=== PATIENT | male | born 1960 | race Caucasian/White ===

== ENCOUNTER 2020-03-28 00:42 | Outpatient (CLI) | payer BC, SELFPAY ==
[2020-03-28 18:35] LABS: SARS-CoV-2 RNA PCR Negative
== END 2020-03-28 00:43 | disposition home or self-care (01) ==
PROVIDERS: PCP Emergency Medicine; Visit Provider Specialist
DX: Z01.812 Encounter for preprocedural laboratory examination (principal); Z20.828 Contact with and (suspected) exposure to other viral communicable diseases
CPT/HCPCS: 87635; C9803; U0003

== ENCOUNTER 2020-03-31 05:18 | Day surgery (SDC) | payer BC, SELFPAY ==
[2020-03-28 15:33] VITALS: BMI 41.1
[2020-03-31] VITALS (23 sets, daily range): BP systolic 109–158; BP diastolic 68–90; PULSE 70–75; RESP 10–23; TEMP 36.9; O2SAT 92–100
[2020-03-31 10:40] LABS: Basophils Absolute Auto 0.1 K/mm3 (0.0-0.1); Basophils Percent Auto 0.8 % (0.2-1.2); Eosinophils Absolute Auto 0.2 K/mm3 (0-0.3); Eosinophils Percent Auto 3.8 % (0-4.4); Hematocrit 46.3 % (42.0-52.0); Hemoglobin 15.8 g/dL (14.0-18.0); Immature Granulocyte Absolute 0.02 K/mm3 (0.00-0.031); Immature Granulocyte Percent A 0.3 % (0-0.5); Lymphocytes Absolute Auto 2.02 K/mm3 (0.9-3.2); Lymphocytes Percent Auto 31.6 % (18.3-44.2); Mean Corpuscular HGB Conc 34.1 g/dl (32-36); Mean Corpuscular Hemoglobin 29.2 pg (26-34); Mean Corpuscular Volume 85.4 fl (80-100); Mean Platelet Volume 9.6 fl (7.4-10.4); Monocytes Absolute Auto 0.7 K/mm3 (0.1-0.6); Monocytes Percent Auto 10.8 % (2.6-8.5); Neutrophils Absolute Auto 3.4 K/mm3 (1.3-6.7); Neutrophils Percent Auto 52.7 % (45.5-73.1); Platelet Count Result 198 k/mm3 (150-375); Red Blood Count 5.42 M/mm3 (4.6-6.20); Red Cell Distribution Width 13.3 % (11.5-14.5); White Blood Count 6.4 K/mm3 (4.5-10.0)
[2020-03-31 10:49] LABS: INR 1.1; Prothrombin Time 14.3 Seconds (11.1-14.7)
[2020-03-31 10:51] LABS: Anion Gap 8 mmol/L (8-16); Blood Urea Nitrogen 11 mg/dL (9-20); Carbon Dioxide 26 mmol/L (22-30); Chloride 101 mmol/L (98-107); Estimated CRCL calculation 149 ml/min; Estimated Glomerular Filt Rate > 60; Glucose 166 mg/dL (75-110); Potassium 4.5 mmol/L (3.4-5.0); Sodium 135 mmol/L (137-145)
--- NOTE | 2020-03-31 11:14 | WPDMODSED ---
Moderate Sedation Note-Pt Data Patient Data Diagnosis: symptoms compatible with angina history of coronary disease previous PCI of the LAD abnormal nuclear stress test Present Complaint: this is a 59-year-old patient with a complex cardiac history. He has a history of coronary artery disease with previous stenting of the LAD in 2009. Prior to that the patient initially presented with symptomatic complete heart block and received a permanent pacemaker. He then developed significant aortic stenosis and received a mechanical aortic valve her purse prosthesis as well. He of course has been anticoagulated with warfarin. Warfarin has been withdrawn for several days prior to today's angiogram. INR this morning is 1.1. Procedure to be performed/Plan: Follow-up coronary angiography, possible PCI Allergies Allergy/AdvReac Type Severity Reaction Status Date / Time hydromorphone Allergy Unknown Verified 07/24/13 09:54 No Known Allergies Allergy Unverified 12/10/15 17:52 Home Medications Medication Instructions Recorded Confirmed Type amlodipine 5 mg tablet 5 mg PO DAILY 07/26/19 03/28/20 History aspirin 81 mg chewable tablet 81 mg PO DAILY 07/26/19 03/28/20 History tramadol 50 mg tablet 50 mg PO Q6H PRN 07/26/19 03/28/20 History glyburide 2.5 mg tablet See Rx Instructions .ROUTE 08/21/19 03/28/20 Rx .COMPLEX #90 tablet metformin 1,000 mg tablet See Rx Instructions .ROUTE 08/21/19 03/28/20 Rx .COMPLEX #180 tablet warfarin 4 mg tablet 4 mg PO DAILY #90 tablet 08/21/19 03/28/20 Rx metoprolol succinate 50 mg PO DAILY 03/28/20 03/28/20 History Current Medications: Active Medications Sodium Chloride (Normal Saline Iv) 500 mls @ 100 mls/hr IV CONT .Q5H KIERA Sedation/Anesthesia: No previous sedation/anesthesia problems (including family history). [facility] Social History Social History Smoking status: Smoker, status unknown Alcohol intake: never Mod Sed Physical Exam Physical Exam Pre Procedural Exam: Normal: Neck, Throat, Airway, Lungs ( breath sounds distant but clear), Heart Rate ( normal mechanical aortic valve sounds), Heart Rhythm, Neuro Exam and Extremities and Variation: Appearance ( obese white male BMI 41) and Heart Size ( PMI cannot be palpated because of his size) Hours since solid foods: 12 Hours since liquid intake: 12 Internal Medicine - PN: Obj Da Vital Signs Vital Signs: Vital Signs - 24 hr 03/31/20 10:48 Temperature 36.9 C Pulse Rate 72 Respiratory Rate 15 Blood Pressure 138/90 Pulse Oximetry 97 Meds/Results Medications: Active Medications Generic Name Dose Route Start Last Admin Trade Name Adarshq PRN Reason Stop Dose Admin Sodium Chloride 500 mls @ 100 mls/hr 03/31/20 06:05 Normal Saline Iv IV CONT .Q5H KIERA Labs CBC & Chem 7: 03/31/20 10:33 03/31/20 10:33 Labs: Laboratory Results - last 24 hr 03/31/20 03/31/20 03/31/20 10:33 10:33 10:33 WBC 6.4 RBC 5.42 Hgb 15.8 Hct 46.3 MCV 85.4 MCH 29.2 MCHC 34.1 RDW 13.3 Plt Count 198 MPV 9.6 Immature Gran % (Auto) 0.3 Neut % (Auto) 52.7 Lymph % (Auto) 31.6 [place] % (Auto) 10.8 H Eos % (Auto) 3.8 Baso % (Auto) 0.8 Lymph # (Auto) 2.02 [place] # (Auto) 0.7 H Eos # (Auto) 0.2 Baso # (Auto) 0.1 Abs Immat Gran (auto) 0.02 Absolute Neuts (auto) 3.4 Absolute Nucleated RBC 0.0 Nucleated RBC % 0.0 PT 14.3 INR 1.1 Sodium 135 L Potassium 4.5 Chloride 101 Carbon Dioxide 26 Anion Gap 8 BUN 11 Creatinine 0.60 L Estim Creat Clear Calc 149 Estimated GFR > 60 Glucose 166 H Calcium 9.0 ASA Classification/Sedation ASA Classification/Sedation ASA Class: III Emergent: No Risks: Risks, benefits and alternatives explained and patient/family accepted plan for sedation. Patient re-evaluated immediately prior to sedation.
--- NOTE | 2020-03-31 12:16 | ECG_ITS ---
Measurements Intervals [place] Rate: 69 P: 201 MO: 182 QRS: -30 QRSD: 199 T: 69 QT: 484 QTc: 522 Interpretive Statements ELECTRONIC ATRIAL PACEMAKER ELECTRONIC VENTRICULAR PACEMAKER BASELINE ARTIFACT- I, II, III NO FURTHER INTERPRETATION IS POSSIBLE ATYPICAL ECG Electronically Signed On 03-31-2020 16:08:02 CDT by Tacos Yoo D.O.
--- NOTE | 2020-03-31 12:19 | WPDCARDPROC ---
Cardiac Cath Procedure Note Date of procedure:: 03/31/20 Performing physician:: Lee Rodrigues MD Indication:: chest pain consistent with angina abnormal nuclear stress test history of LAD stent in 2009 Brief clinical history:: this is a 59-year-old man with a complicated cardiac history. He has chronic complete heart block with a chronically implanted dual-chamber pacemaker. In the remote past he also received a mechanical aortic valve to treat aortic stenosis. In 2009 he received an LAD stent to treat symptomatic ischemia. The patient is known to have a stenosis in a diagonal branch that is jailed by the stent but despite this had been asymptomatic until recently when now he is reporting typical exertional angina and has a nuclear stress test that is abnormal in the distribution of the LAD. Procedure Procedure performed:: Coronary angiography percutaneous revascularization with stenting of the LAD Sedation/Medication given:: fentanyl 50 mg Versed 2 mg case start time 11 41 a.m. case end time 12:11 p.m. sedation provided by Tati Dudley RN, trained observer Access site:: right femoral artery Estimated blood loss:: 15-20 cc Procedure note:: patient was brought to the cardiac catheterization lab in the postabsorptive state the right femoral triangle was prepared in the usual fashion. Anesthesia was administered with lidocaine infiltrated locally. Using the modified Seldinger technique right common femoral artery was accessed and a 5 [place] vascular sheath was placed. I then injected the right coronary artery using a 5 [place] JR4 catheter. I injected the left coronary artery using a 5 [place] FL4 catheter. Following this the cineangiograms were reviewed and PCI of the LAD was recommended and carried out as detailed below. Prior to PCI the 5 [place] sheath was changed over a guidewire for a 6 [place] sheath. Patient was systemically anticoagulated with a bolus and infusion of Angiomax. He received aspirin and 600 mg of clopidogrel orally prior to PCI. Following conclusion of the case the sheath was sutured into position was taken to the holding area for recovery a manual sheath removal. Procedure was uncomplicated there were no signs of any procedural complications. He left the label cutter with no evidence of a groin hematoma. Findings:: Hemodynamics: Central aortic pressure is 1 38/82. Because of the mechanical aortic valve the left ventricle was not entered the left main coronary artery is widely patent the LAD is a medium caliber vessel extending down to and just around the apex. There is visible stent material in the proximal 3rd of the LAD bridging over the major diagonal branch. This stent area is widely patent with no loss of lumen. There is however 95-99% tubular stenosis of about 15 mm in length the distal to the stent material representing progression of disease in the LAD. The diagonal branch as detailed above also has a 90% ostial lesion which is jailed by the original stent. Angiographically this appears to be unchanged from previous angiograms in 2018. Circumflex is a moderate caliber artery giving rise to the marginal branches the circumflex system is angiographically unremarkable right coronary artery is a large caliber vessel which is dominant to the posterior circulation the right coronary artery is also angiographically unremarkable. The left coronary artery was engaged using a 6 [place] CLS 3.5 guiding catheter. The lesion was crossed using a 0.014 ferryboat pilot 150 guidewire. The lesion was pre-dilated using a 2.5 x 20 mm emerge PTCA balloon. The target lesion was then stented using a 2.75 by 26 mm Orsiro drug-eluting stent inflated to 10 atmospheres. post stent the LAD was widely patent the target lesion was obliterated there is -10% to -20% stenosis with some step-down at the distal margin of the stent. There is no evidence of perforation distal embolization or dissection of the vessel. Concl
--- NOTE | 2020-03-31 15:06 | SUR.PHASEII ---
1500-Sheath pulled by Sultana Capellan RN. Firm pressure remains in place. Groin soft and non-tender, no evidence of bleeding or hematoma noted. Will continue to monitor.
--- NOTE | 2020-03-31 15:31 | SUR.PHASEII ---
1528-Firm pressure complete. Groin soft and non-tender, no evidence of bleeding or hematoma noted. Moderate right pedal pulse noted. Will continue to monitor.
--- NOTE | 2020-03-31 17:28 | SUR.PHASEII ---
see PCS for continued documentation.
[2020-03-31] MEDS: SODIUM CHLORIDE 0.9% IV 1,000 ML 125 ML IV CONT (17:55)
[2020-03-31] MEDS: WARFARIN (*PBKC) 4 MG TABLET PO (18:07)
[2020-04-01] VITALS (7 sets, daily range): BP systolic 140–170; BP diastolic 77–78; PULSE 70–75; RESP 16–19; TEMP 36.4–36.6; O2SAT 94–97
[2020-04-01] MEDS: ASPIRIN 81 MG CHEWABLE TABLET PO (09:58)
[2020-04-01] MEDS: ROSUVASTATIN 10 MG TABLET PO (09:59)
[2020-04-01] MEDS: METOPROLOL SUCCINATE EXT REL 50 MG TABCR PO (09:59)
[2020-04-01] MEDS: amLODIPine BESYLATE 5 MG TABLET PO (09:59)
[2020-04-01] MEDS: CLOPIDOGREL BISULFATE 75 MG TABLET PO (09:59)
--- NOTE | 2020-04-01 10:13 | PM.DS ---
DS: Admitting Diagnosis Admitting Diagnosis Admitting Diagnosis: Angina/ Abnormal Stress Test DS: Discharge Diagnosis Discharge Diagnosis (1) Coronary artery disease involving [place] coronary artery: Code(s): I25.10 - Atherosclerotic heart disease of [place] coronary artery without angina pectoris Status: Acute Assessment and Plan: status post drug-eluting stent to distal LAD 03/31/2020. Continue aspirin, clopidogrel, rosuvastatin and Metoprolol succinate DS: Summary Hospital Course Reason for hospitalization: abnormal stress test Hospital Course: 59-year-old male with a remote history of an LAD stent and stenosis in a diagonal branch that is jailed by the stent recently having anginal chest discomfort. Stress test was abnormal. He was brought to the cardiac catheterization lab on 03/31/[address] Rodrigues with the findings of: Progression of disease in the LAD 95-99% stenosis noted distal to the original device. Persistent 90% stenosis in the ostium of the diagonal branch which is jailed by theoriginal stent device. Angiographically unchanged. He proceeded on to intervention using 2.75 x 26 mm [place] drug-eluting stent. He was loaded with clopidogrel. Warfarin was restarted. He was monitored overnight. He denied any chest discomfort or shortness of breath. Right groin site was without bleeding or swelling. No femoral bruit. Distal pulses intact. He was discharged home in stable and pain-free condition. Status at Discharge Functional status at discharge: independent ambulation Overall status at discharge: patient is back to baseline Time Spent with Patient Time attestation: Total time spent providing and/or coordinating discharge services: 20 minutes in the room, new medications, activity restrictions, return to work then follow-up with Dr. Rodrigues. INR to be done in 1 week. 10 minutes to do discharge summary. 5 minutes to do discharge orders. Total time 35 minutes This document was completed by using M*Modal Fluency Direct speech recognition software, therefore, career based intervention coordinator variances may occur. Time spent: Greater than 30 minutes Exam Const: General: comfortable and no acute distress Limitations: no limitations HENMT: General nose exam: Normal nares present Eyes: General: appearance normal, both eyes and all related structures Neck: Neck: no JVD Resp: Auscultation: clear to auscultation bilaterally Cardio: Jugular venous distension: no JVD Rate: regular rate Rhythm: regular rhythm Heart sounds: Other heart sounds present ( [place] valve sounds) Peripheral pulses: Peripheral pulses 2+ throughout Other: right groin site without swelling or bleeding. No femoral bruit. Distal pulses intact. GI: GI Palp: Yes Soft to palpation Auscultation: normal bowel sounds Skin: General skin exam: normal color Neuro: General: patient oriented x3 Cognition (Neuro): normal cognition Speech: normal speech Extrem: General: no clubbing, cyanosis or edema Psych: Appearance: grossly normal Mental Status: mental status grossly normal Speech and movement: Normal speech and movement present Affect: normal affect Attitude: cooperative Thought process: Normal thought process present Thought content: Yes Normal thought content present Insight: Good insight present (Psych) Judgement: Good judgement present (Psych) DS: Data Data Completed and Pending Labs on day of discharge: Labs from last 24 hours 03/31/20 03/31/20 03/31/20 10:33 10:33 10:33 WBC 6.4 RBC 5.42 Hgb 15.8 Hct 46.3 MCV 85.4 MCH 29.2 MCHC 34.1 RDW 13.3 Plt Count 198 MPV 9.6 Immature Gran % (Auto) 0.3 Neut % (Auto) 52.7 Lymph % (Auto) 31.6 Hand % (Auto) 10.8 H Eos % (Auto) 3.8 Baso % (Auto) 0.8 Lymph # (Auto) 2.02 Hand # (Auto) 0.7 H Eos # (Auto) 0.2 Baso # (Auto)
== END 2020-04-01 10:45 | disposition home or self-care (01) ==
LOC: ANHCATHLAB 10:10 → ANHCPC 17:29
PROVIDERS: PCP Emergency Medicine; Visit Provider Specialist
PROC: (CPT 93454; principal; 2020-03-31 11:30)
DX: I25.10 Atherosclerotic heart disease of native coronary artery without angina pectoris (principal); T82.897A Other specified complication of cardiac prosthetic devices, implants and grafts, initial encounter; R94.39 Abnormal result of other cardiovascular function study; R07.9 Chest pain, unspecified; I44.2 Atrioventricular block, complete; Z95.0 Presence of cardiac pacemaker; Z95.2 Presence of prosthetic heart valve; Z95.5 Presence of coronary angioplasty implant and graft; Y83.8 Other surgical procedures as the cause of abnormal reaction of the patient, or of later complication, without mention of misadventure at the time of the procedure; Z79.01 Long term (current) use of anticoagulants; Z79.82 Long term (current) use of aspirin; Z79.84 Long term (current) use of oral hypoglycemic drugs
CPT/HCPCS: 36415; 80048; 85025; 85610; 93005; 93454; A9270; C1725; C1769; C1874; C1887; C1894; C9600; J0583; J1644; J2250; J3010; J7030; J7040

== ENCOUNTER 2020-04-14 08:29 | Outpatient (CLI) | payer BC, SELFPAY ==
[2020-04-14 08:55] LABS: Alanine Aminotransferase 50 U/L (4-50); Albumin Level 4.6 g/dL (3.5-5.1); Alkaline Phosphatase 73 U/L (38-126); Anion Gap 8 mmol/L (8-16); Aspartate Amino Transferase 57 U/L (17-59); Bilirubin,Total 0.6 mg/dL (0.2-1.3); Blood Urea Nitrogen 13 mg/dL (9-20); Calcium 9.1 mg/dL (8.4-10.2); Carbon Dioxide 25 mmol/L (22-30); Chloride 104 mmol/L (98-107); Cholesterol 137 mg/dL (0-200); Estimated Glomerular Filt Rate > 60; Glucose 177 mg/dL (75-110); HDL Direct 33 mg/dL; Hemoglobin A1C 7.5 % (<5.7); Potassium 4.2 mmol/L (3.4-5.0); Sodium 137 mmol/L (137-145); Triglycerides 164 mg/dL (<150)
[2020-04-14 09:06] LABS: LDL Cholesterol Direct 78 mg/dL
== END 2020-04-14 08:30 | disposition home or self-care (01) ==
PROVIDERS: PCP Emergency Medicine; Referring Provider Specialist; Visit Provider Emergency Medicine
DX: E78.2 Mixed hyperlipidemia (principal); E11.9 Type 2 diabetes mellitus without complications
CPT/HCPCS: 36415; 80053; 80061; 83036

== ENCOUNTER 2020-06-03 06:52 | Outpatient (NON) | payer BC, SELFPAY ==
[2020-06-03 19:02] LABS: SARS-CoV-2 RNA PCR Negative
== END 2020-06-03 06:53 ==
PROVIDERS: PCP Emergency Medicine; Visit Provider Emergency Medicine
DX: Z20.828 Contact with and (suspected) exposure to other viral communicable diseases (principal); R11.0 Nausea; R50.9 Fever, unspecified
CPT/HCPCS: 87635; C9803; U0003

== ENCOUNTER 2020-11-25 08:26 | Outpatient (CLI) | payer BC, SELFPAY ==
[2020-11-25 09:20] LABS: Alanine Aminotransferase 51 U/L (4-50); Albumin Level 4.4 g/dL (3.5-5.1); Alkaline Phosphatase 67 U/L (38-126); Anion Gap 6 mmol/L (8-16); Aspartate Amino Transferase 58 U/L (17-59); Bilirubin,Total 0.6 mg/dL (0.2-1.3); Blood Urea Nitrogen 14 mg/dL (9-20); Calcium 9.1 mg/dL (8.4-10.2); Carbon Dioxide 27 mmol/L (22-30); Chloride 102 mmol/L (98-107); Cholesterol 135 mg/dL (0-200); Estimated Glomerular Filt Rate > 60; Glucose 196 mg/dL (75-110); HDL Direct 36 mg/dL; Potassium 4.3 mmol/L (3.4-5.0); Sodium 135 mmol/L (137-145); Triglycerides 178 mg/dL (<150)
[2020-11-25 09:27] LABS: Hemoglobin A1C 9.8 % (<5.7)
[2020-11-25 09:30] LABS: LDL Cholesterol Direct 72 mg/dL
== END 2020-11-25 08:27 | disposition home or self-care (01) ==
PROVIDERS: PCP Emergency Medicine; Visit Provider Emergency Medicine
DX: E11.9 Type 2 diabetes mellitus without complications (principal); E78.5 Hyperlipidemia, unspecified
CPT/HCPCS: 36415; 80053; 80061; 83036

== ENCOUNTER 2020-12-23 23:26 | Observation (INO) | payer BC, SELFPAY ==
--- NOTE | ~2020-12-23 | NM_ITS ---
EXAMINATION: NM jo stress w perfusion DATE: 12/24/2020 13:42 INDICATION: Chest pain. TECHNIQUE: Rest images were obtained following intravenous administration of 11.22 mCi Tc99m tetrofos min (Myoview). The patient was infused intravenously with Lexiscan (regadenoson). Then, 32.37 mCi Tc9 9m tetrofosmin (Myoview) was administered intravenously, and stress images were obtained. Data was re constructed into short axis and horizontal and vertical long axis SPECT images. Gated SPECT images we re also obtained. COMPARISON: CT abdomen 02/01/2018 FINDINGS: There is no definite reversible or fixed perfusion abnormality to suggest ischemia or infar ction. There is no segmental wall motion abnormality. Left ventricular ejection fraction measures 5 1%. IMPRESSION: 1. No definite ischemia or infarct. 2. Left ventricular ejection fraction measuring 51%. Reviewed, dictated and finalized at location B.
--- NOTE | ~2020-12-23 | XR_ITS ---
EXAMINATION: XR chest 2V EXAM DATE: 12/23/2020 23:53 INDICATION: Chest pain left side x 2 days. Left arm numbness . TECHNIQUE: Frontal and lateral projections of the chest obtained and reviewed. Comparison is made to prior examination from 12/31/2017. FINDINGS: There is a dual lead pacemaker/AICD seen with leads projecting over the expected locations of the right atrial appendage and right ventricle. Sternotomy wires are present without findings to suggest sternal dehiscence. Aortic valve replacement. The lungs are clear. There are no pleural effusions. There is cardiomegaly. There is no pneumothorax suspected. The bones and soft tissues are unremarkable. There is no significant interval change. IMPRESSION: Cardiomegaly. Reviewed, dictated and finalized at location G. IMPRESSION: Cardiomegaly.
--- NOTE | 2020-12-23 23:28 | ECG_ITS ---
Measurements Intervals [place] Rate: 74 P: 211 MO: 173 QRS: -70 QRSD: 210 T: 113 QT: 469 QTc: 523 Interpretive Statements ELECTRONIC ATRIAL PACEMAKER ELECTRONIC VENTRICULAR PACEMAKER NO FURTHER INTERPRETATION IS POSSIBLE ATYPICAL ECG Electronically Signed On 12-24-2020 6:54:48 CDT by Tacos Yoo D.O.
[2020-12-23 23:36] VITALS: BP 149/92; PULSE 71; RESP 18; TEMP 36.7; O2SAT 99
[2020-12-23 23:44] VITALS: PULSE 75
--- NOTE | 2020-12-23 23:50 | PC.NURSE ---
Pt to CT at this time.
[2020-12-24] VITALS (18 sets, daily range): BP systolic 129–162; BP diastolic 66–89; PULSE 70–82; RESP 14–20; TEMP 35.8–36.5; O2SAT 97–100; BMI 39.1
[2020-12-24] MEDS: ASPIRIN 81 MG CHEWABLE TABLET 324 MG PO (00:08)
[2020-12-24] MEDS: NITROGLYCERIN SL 0.4 MG TABLET SUBLINGUAL (00:11)
--- NOTE | 2020-12-24 00:16 | PC.NURSE ---
2nd dose of nitro given after pain score of 4.
[2020-12-24 00:19] LABS: Basophils Percent Auto 0.5 % (0.2-1.2); Eosinophils Absolute Auto 0.3 K/mm3 (0-0.3); Eosinophils Percent Auto 3.7 % (0-4.4); Hematocrit 44.7 % (42.0-52.0); Hemoglobin 14.9 g/dL (14.0-18.0); Immature Granulocyte Absolute 0.02 K/mm3 (0.00-0.031); Immature Granulocyte Percent A 0.3 % (0-0.5); Lymphocytes Absolute Auto 2.59 K/mm3 (0.9-3.2); Lymphocytes Percent Auto 33.2 % (18.3-44.2); Mean Corpuscular HGB Conc 33.3 g/dl (32-36); Mean Corpuscular Hemoglobin 28.1 pg (26-34); Mean Corpuscular Volume 84.3 fl (80-100); Mean Platelet Volume 9.4 fl (7.4-10.4); Monocytes Absolute Auto 0.7 K/mm3 (0.1-0.6); Monocytes Percent Auto 8.6 % (2.6-8.5); Neutrophils Absolute Auto 4.2 K/mm3 (1.3-6.7); Neutrophils Percent Auto 53.7 % (45.5-73.1); Platelet Count Result 162 k/mm3 (150-375); Red Cell Distribution Width 13.5 % (11.5-14.5); White Blood Count 7.8 K/mm3 (4.5-10.0)
[2020-12-24 00:27] LABS: INR 1.7; Prothrombin Time 20.4 Seconds (11.1-14.7)
[2020-12-24 00:28] LABS: Partial Thromboplastin Time 31.1 SECONDS (22.3-36.8)
[2020-12-24 00:29] LABS: Anion Gap 9 mmol/L (8-16); Blood Urea Nitrogen 15 mg/dL (9-20); Calcium 9.8 mg/dL (8.4-10.2); Carbon Dioxide 28 mmol/L (22-30); Chloride 99 mmol/L (98-107); Estimated CRCL calculation 97 ml/min; Estimated Glomerular Filt Rate > 60; Glucose 230 mg/dL (75-110); Potassium 4.4 mmol/L (3.4-5.0); Sodium 136 mmol/L (137-145)
[2020-12-24 00:41] LABS: Troponin I < 0.012 ng/mL (0.000-0.034)
[2020-12-24] MEDS: MORPHINE SULFATE (*CRX) 4 MG/ML INJ IV PUSH (00:42)
--- NOTE | 2020-12-24 00:49 | ED.GENADULT ---
HPI - General Adult General Chief complaint: Chest Pain Stated complaint: Chest pain Time Seen by Provider: 12/23/20 23:35 History of Present Illness HPI narrative: Patient 60-year-old gentleman who presents the emergency department with chief complaint of chest pain. The patient reports over the last several days has been having some discomfort in his chest but tonight it got significantly worse he reports that he has pain that radiated down his left arm and got short of breath with this as well. Patient reports this feels similar to whenever he had to have stents placed in the past. Related Data Home Medications Medication Instructions Recorded Confirmed aspirin 81 mg chewable tablet 81 mg PO DAILY 07/26/19 03/28/20 Allergies Allergy/AdvReac Type Severity Reaction Status Date / Time hydromorphone AdvReac Intermediate Unknown Verified 12/24/20 00:45 Review of Systems Review of Systems: Narrative: A 10 system review of systems was completed on the patient and is negative except for what is stated in the HPI. Nursing and ancillary documentation was reviewed. [facility] Past Medical History Medical History (Updated 12/24/20 @ 01:00 by Edenilson Pruitt MD) Coronary artery disease involving [place] coronary artery HLD (hyperlipidemia) HTN (hypertension) Family History Family History Sibling Hypertension Family history of malignant neoplasm of kidney Father Family history of Parkinson's disease, Onset Age: 80 Family history of dementia, Onset Age: 80 Social History Social History Smoking status: Smoker, status unknown Alcohol intake: never Exam Narrative: Exam Narrative: GENERAL: Well-appearing, well-nourished, and in no acute distress. HEAD: Normocephalic, atraumatic. EYES: PERRLA and EOMI. ENT: Nares clear, no rhinorrhea or epistaxis. Mucous membranes moist. NECK: Supple. CHEST: Clear to auscultation. No respiratory distress. HEART: Regular rate and rhythm. No murmur heard. Normal peripheral pulses. ABDOMEN: Soft, nontender, nondistended, normal active bowel sounds. EXTREMITIES: Normal range of motion. No edema. SKIN: Warm, dry, no rash. NEURO: No focal deficits. Alert and oriented x3. PSYCH: Normal mood and affect. Course Course Emergency Course: EKG shows a paced rhythm with a rate of 74 Vital Signs Vital signs: Vital Signs Temperature 36.7 C 12/23/20 23:36 Pulse Rate 71 12/23/20 23:36 Respiratory Rate 18 12/23/20 23:36 Blood Pressure 149/92 H 12/23/20 23:36 Pulse Oximetry 99 12/23/20 23:36 Temperature 36.7 C 12/23/20 23:36 Pulse Rate 72 12/24/20 00:46 Respiratory Rate 17 12/24/20 00:46 Blood Pressure 129/66 12/24/20 00:46 Pulse Oximetry 100 12/24/20 00:17 Medical Decision Making Vital Signs Vital Signs: Vital Signs Temperature 36.7 C 12/23/20 23:36 Pulse Rate 71 12/23/20 23:36 Respiratory Rate 18 12/23/20 23:36 Blood Pressure 149/92 H 12/23/20 23:36 Pulse Oximetry 99 12/23/20 23:36 Temperature 36.7 C 12/23/20 23:36 Pulse Rate 72 12/24/20 00:46 Respiratory Rate 17 12/24/20 00:46 Blood Pressure 129/66 12/24/20 00:46 Pulse Oximetry 100 12/24/20 00:17 Lab Data Result diagrams: 12/24/20 00:10 12/24/20 00:11 Labs: Lab Results 12/24/20 12/24/20 12/24/20 Range/Units 00:10 00:11 00:11 WBC 7.8 (4.5-10.0) K/mm3 RBC 5.30 (4.6-6.20) M/mm3 Hgb 14.9 (14.0-18.0) g/dL Hct 44.7 (42.0-52.0) % MCV 84.3 (80-100) fl MCH 28.1 (26-34) pg MCHC 33.3 (32-36) g/dl RDW 13.5 (11.5-14.5) % Plt Count 162 (150-375) k/mm3 MPV 9.4 (7.4-10.4) fl Immature Gran % (Auto) 0.3 (0-0.5) % Neut % (Auto) 53.7 (45.5-73.1) % Lymph % (Auto) 33.2 (18.3-44.2) % Grand % (Auto) 8.6 H (2.6-8.5) % Eos
--- NOTE | 2020-12-24 03:01 | ADMGEN ---
This patient, Mal Solorzano, was admitted to IMU Room 200-01. Patient/family oriented to hospital policies and general routines including ID bracelet, bed and alarms, visiting hours, pain management, procedures, bathroom and other care routines, personal items, smoking policy, room service/diet, and visiting hours. Information on how to activate the Rapid Response Team has been discussed. Patient/Family are encouraged to report perceived risks to care and to ask questions if they do not understand what they are told or what they should do. Chen RN [phone]
[2020-12-24 03:57] LABS: Troponin I < 0.012 ng/mL (0.000-0.034)
[2020-12-24 06:58] LABS: Troponin I < 0.012 ng/mL (0.000-0.034)
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
--- NOTE | 2020-12-24 08:55 | EST_ITS ---
Patient Info Name: Mal Solorzano Age: 60 years : 1960 Gender: Male Ht: 70 in Wt: 272 lbs BSA: 2.52 m2 Exam Date: 12/24/2020 12:49 PM Exam Location: [facility] Stress Patient Status: Inpatient Admit Date: 12/24/2020 Staff Ordering Physician: Lee Rodrigues MD Attending Provider: dr liliya palmer Exercise Technologist: Jessee Ferguson RDCS, RT Exercise Physician: Liliya Palmer MD Exam Type: CA stress jo w NM Study Info A regadenoson stress test was performed. Summary 1. Please correlate with nuclear medicine images, reported separately. 2. No abnormal ST-T wave changes with lexiscan. Protocol: Lexiscan Stress ECG Details Stage: REST Duration (min): 0 min : 55 sec HR (bpm): 70 SBP (mmHg): 134 DBP (mmHg): 85 Stage: REST Duration (min): 6 min : 40 sec HR (bpm): 86 SBP (mmHg): 134 DBP (mmHg): 85 Stage: STAGE 1 Duration (min): 1 min : 0 sec HR (bpm): 74 SBP (mmHg): 137 DBP (mmHg): 88 Stage: RECOVERY Duration (min): 1 min : 0 sec HR (bpm): --- SBP (mmHg): 137 DBP (mmHg): 88 Stage: RECOVERY Duration (min): 2 min : 0 sec HR (bpm): 70 SBP (mmHg): 137 DBP (mmHg): 88 Stage: RECOVERY Duration (min): 3 min : 0 sec HR (bpm): 70 SBP (mmHg): 144 DBP (mmHg): 86 Stage: RECOVERY Duration (min): 4 min : 0 sec HR (bpm): 70 SBP (mmHg): 144 DBP (mmHg): 86 Stage: RECOVERY Duration (min): 4 min : 7 sec HR (bpm): 70 SBP (mmHg): 144 DBP (mmHg): 86 Rest HR: 86 bpm Peak HR: 77 bpm Rest Sys BP: 134 mmHg Peak Sys BP: 144 mmHg Max Pred HR: 158 bpm % Max Pred HR: 49 % Target HR: 134 bpm Max RPP: 11,088 bpm*mmHg Target HR Summary: Hemodynamic response to exercise was normal BP Response: Normal blood pressure response Termination Reason: Completed protocol Cardiac Symptoms: None Total Time: 1 min : 0 sec Rest Banks BP: 85 mmHg Peak Banks BP: 86 mmHg Total Dose: 0.4 mg Resting ECG Atrial pacing. Ventricular pacing. Stress ECG Non-diagnostic ECG due to electronic pacing. Arrhythmias Occasional PVCs. Report Signatures
[2020-12-24] MEDS: ASPIRIN 81 MG CHEWABLE TABLET PO (10:39)
[2020-12-24] MEDS: CLOPIDOGREL BISULFATE 75 MG TABLET PO (10:39)
[2020-12-24] MEDS: METOPROLOL SUCCINATE EXT REL 50 MG TABCR PO (10:40)
[2020-12-24] MEDS: glyBURIDE 2.5 MG TABLET PO (15:12)
[2020-12-24] MEDS: ROSUVASTATIN 10 MG TABLET PO (15:12)
[2020-12-24] MEDS: metFORMIN HCL 500 MG TABLET 1000 MG PO (15:12)
== END 2020-12-24 16:55 | disposition home or self-care (01) ==
LOC: ANHED 12-24 01:00 → ANHIMU 12-24 03:05
PROVIDERS: Admitting Provider Internal Medicine Cardiovascular Disease; Emergency Provider Emergency Medicine; PCP Emergency Medicine; Visit Provider Specialist
DX: R07.9 Chest pain, unspecified (principal); Z95.5 Presence of coronary angioplasty implant and graft; Z95.0 Presence of cardiac pacemaker; I10 Essential (primary) hypertension; E78.5 Hyperlipidemia, unspecified; I25.10 Atherosclerotic heart disease of native coronary artery without angina pectoris; R06.02 Shortness of breath
CPT/HCPCS: 36415; 71046; 78452; 80048; 84484; 85025; 85610; 85730; 93005; 93017; 96374; 99285; A9270; A9502; G0378; J2270; J2785

== ENCOUNTER 2020-12-29 10:49 | Outpatient (RCR) | payer BC, SELFPAY ==
[2020-12-29 11:17] LABS: INR 2.7; Prothrombin Time 29.3 Seconds (11.1-14.7)
== END 2021-03-29 23:59 | disposition home or self-care (01) ==
LOC: ANHLAB 10:49
PROVIDERS: PCP Emergency Medicine; Visit Provider Specialist
DX: Z51.81 Encounter for therapeutic drug level monitoring (principal); Z95.2 Presence of prosthetic heart valve; Z79.01 Long term (current) use of anticoagulants
CPT/HCPCS: 36415; 85610

== ENCOUNTER 2021-11-26 09:25 | Outpatient (CLI) | payer BC, SELFPAY ==
[2021-11-26 09:50] LABS: Alanine Aminotransferase 44 U/L (4-50); Albumin Level 4.4 g/dL (3.5-5.1); Alkaline Phosphatase 76 U/L (38-126); Anion Gap 7 mmol/L (8-16); Aspartate Amino Transferase 53 U/L (17-59); Bilirubin,Total 0.6 mg/dL (0.2-1.3); Blood Urea Nitrogen 13 mg/dL (9-20); Calcium 8.7 mg/dL (8.4-10.2); Carbon Dioxide 25 mmol/L (22-30); Chloride 101 mmol/L (98-107); Cholesterol 162 mg/dL (0-200); Estimated Glomerular Filt Rate > 60; Glucose 245 mg/dL (65-110); HDL Direct 31 mg/dL; Potassium 4.3 mmol/L (3.4-5.0); Sodium 133 mmol/L (137-145); Triglycerides 353 mg/dL (<150)
[2021-11-26 10:01] LABS: LDL Cholesterol Direct 78 mg/dL
[2021-11-26 10:19] LABS: Hemoglobin A1C 9.2 % (<5.7)
[2021-11-26 11:16] LABS: MALB Creatinine Ratio 127.8 mg/g (0-30); Microalbumin Urine Random 286.3 mg/L (0-16.7)
== END 2021-11-26 09:26 | disposition home or self-care (01) ==
LOC: ANHLAB 09:26
PROVIDERS: PCP Emergency Medicine; Visit Provider Emergency Medicine
DX: Z12.5 Encounter for screening for malignant neoplasm of prostate (principal); E11.9 Type 2 diabetes mellitus without complications; E78.2 Mixed hyperlipidemia; I10 Essential (primary) hypertension
CPT/HCPCS: 36415; 80053; 80061; 82043; 83036; 84153; G0103

== ENCOUNTER 2021-12-17 08:22 | Outpatient (CLI) | payer BC, SELFPAY ==
[2021-12-17 09:07] LABS: Sodium 133 mmol/L (137-145)
[2021-12-17 09:19] LABS: INR 1.4; Partial Thromboplastin Time 28.9 SECONDS (22.3-36.8); Prothrombin Time 16.8 Seconds (11.1-14.7)
== END 2021-12-17 08:23 | disposition home or self-care (01) ==
LOC: ANHSURGERY 08:25
PROVIDERS: Anesthesiology; PCP Emergency Medicine; Visit Provider Surgery
DX: Z01.818 Encounter for other preprocedural examination (principal); Z79.01 Long term (current) use of anticoagulants; R79.89 Other specified abnormal findings of blood chemistry
CPT/HCPCS: 36415; 84295; 85610; 85730

== ENCOUNTER 2021-12-18 02:03 | Day surgery (SDC) | payer BC, SELFPAY ==
[2021-12-14 15:04] VITALS: BMI 40.4
--- NOTE | 2021-12-14 15:34 | PC.NURSE ---
Report to the Outpatient Waiting Room, entrance under the green pavilion located off [facility], at time _6:00AM on date __12/18/21 . OR Time: __7:30AM . - You and your visitor will be asked a series of questions to screen for COVID 19 for your protection. - Only one visitor is allowed at this time. - The patient visitor is requested to leave or wait in car when not with patient. - A mask is required within the hospital. Patients may have clear liquids (water, carbonated beverages, clear teas, apple juice) until 3 hours prior to surgery with a maximum of 20 ounces. - No food from midnight until time of surgery - Infants may have breast milk until 4 hours before surgery, formula 6 hours prior to surgery. - Children will be allowed to drink immediately following surgery. If applicable, please bring a bottle or sippy cup to assist with drinking. Juice, water, soda, and popsicles are readily available. For infants on formula, please bring formula the day of surgery. Pacifiers are allowed. Take the following medications with a SIP of water the morning of surgery: __ISOSORBIDE, METOPROLOL Medications to discontinue per physician __HOLD CLOPIDOGREL(PLAVIX) AND WARFARIN(COUMADIN) 3 DAYS PRE-OP PER DR SUAREZ/SANDER Date to take last dose___12/14/21 HIBICLENS SHOWER MORNING OF SURGERY Please no make-up, nail tajik, hairspray, perfume, deodorant, or body powder the day of surgery. No jewelry (including any body piercings) or valuables the day of surgery, leave them at home. Please take a shower or bath the night before, or the morning of, surgery with an antibacterial soap. Wear comfortable, loose fitting clothing. Children are encouraged to wear pajamas. - Jewelry must be removed prior to entering the operating room. Rings and piercings that are not removed may be cut off. - The hospital will not accept responsibility for valuables. - Please leave all valuables, including medications, at home the day of surgery. If you are going home after surgery, a licensed team driver must drive you home. - NO public transportation without another adult. - We recommend that an adult stay with you for 24 hours following discharge. - We also recommend that you do not drive, make important decision, drink alcoholic beverages, or take any drugs that were not prescribed by your health care provider for at least 24 hours after your discharge time. For Pediatric surgeries, we recommend two adults accompany the child home (only one inside the building at this time). Follow any additional instructions given to you from your surgeon. If you or anyone in your household have experienced Covid symptoms in the past week, please notify your surgeon or the nurse liaison at the phone number below for possible testing. Telephone instructions given to __PATIENT and asked if any additional questions and then verbalized understanding. Patient advised to call surgeon office or pre surgery nurse liaison [phone] if any additional questions.
--- NOTE | 2021-12-17 13:53 | WPDANESEPPF ---
Anes - Initial Pre Proc Eval Procedure: Operation Date: 12/18/21 07:30 Proposed Procedures p Open Incarcerated Umbilical Hernia Repair with Mesh - Suzan Rowland MD Date/Time: 12/17/21 13:53 Surgeon: Suzan Rowland MD Pre Op Diagnosis: incarcerated umbilical hernia Patient Data Age: 61 Gender: M Height: 1.78 m Weight: 128 kg Allergies Allergy/AdvReac Type Severity Reaction Status Date / Time hydromorphone AdvReac Mild Nausea and Verified 12/18/21 07:10 Vomiting Home Medications Medication Instructions Recorded Confirmed Type nitroglycerin 0.4 mg SUBLINGUAL DIRECTED PRN 04/01/20 12/18/21 Rx #25 tablet metformin 1,000 mg tablet 1,000 mg PO BID #180 tablet 05/04/21 12/18/21 Rx rosuvastatin 10 mg tablet 10 mg PO DAILY #90 tablet 05/04/21 12/18/21 Rx isosorbide mononitrate 60 mg 60 mg PO QAM 12/08/21 12/18/21 History tablet,extended release 24 hr warfarin 6 mg tablet 6 mg PO 3XW 12/08/21 12/18/21 History aspirin [Aspir-81] 81 mg PO DAILY 12/14/21 12/18/21 History clopidogrel 75 mg PO QAM 12/14/21 12/18/21 History glyburide 2.5 mg PO QAM 12/14/21 12/18/21 History losartan 50 mg PO QAM 12/14/21 12/18/21 History metoprolol succinate 50 mg PO QAM 12/14/21 12/18/21 History semaglutide [Rybelsus] 7 mg PO QAM 12/14/21 12/18/21 History warfarin 4 mg PO 4XW 12/14/21 12/18/21 History Patient hx anesthesia problems: none Family hx anesthesia problems: none Results Review: All pre-operative results and documents have been reviewed as part of the pre-operative evaluation. [facility] Past Medical History Medical History (Updated 12/08/21 @ 10:23 by Gail Oro) Coronary artery disease involving [place] coronary artery Heart disease History of kidney stones HLD (hyperlipidemia) HTN (hypertension) Type 2 diabetes mellitus without complication Surgical History Surgical History (Updated 12/08/21 @ 10:23 by Gail Oro) History of heart surgery History of repair of right rotator cuff Family History Family History Sibling Hypertension Family history of malignant neoplasm of kidney Father Family history of Parkinson's disease, Onset Age: 80 Family history of dementia, Onset Age: 80 Mother Tuberculosis Other Diabetes mellitus Social History Social History Smoking status: Current every day smoker Tobacco type: pipe and cigars Additional smoking assessment comments: CURRENTLY PIPER EVERY 3 DAYS, SMOKED CIGARS IN PAST FOR 8 YRS Alcohol intake: current Drinks per week: 3 Alcohol use details: Few times a month Substance use: never Substance use type: does not use Living arrangements: with family Additional living arrangements comments: Additional occupation/education comments: disabled Gender identity (if verbalized by the patient): Male Spiritual care concerns: No Anes - Eval Final PreProcedure Day of Procedure 12/17/21 13:53 Patient weight: obese Heart: regular rate and rhythm Lungs: clear to auscultation Airway: Mallampati scale class III Neurological: alert and oriented Last oral intake: >/= 8 hours ASA classification: III Emergent: no Anesthetic plan: proceed Anesthesia type and monitoring: general ETT and standard monitoring Results Review: All pre-operative results and documents have been reviewed as part of the pre-operative evaluation. Informed Consent: The patient's anesthetic plan and its attendant risks and benefits were discussed with the patient/family/POA. Questions were solicited and answers provided to the satisfaction of the patient/family/POA.
[2021-12-18] MEDS: LACTATED RINGERS 1,000 ML 30 ML IV CONT (06:45)
[2021-12-18 06:50] LABS: Glucose Point of Care 255 mg/dl (65-105)
[2021-12-18] MEDS: ACETAMINOPHEN 500 MG TABLET 1000 MG PO (06:53)
[2021-12-18] MEDS: KETOROLAC 15 MG/ML VIAL (*BKC) IV PUSH (06:54)
[2021-12-18 07:08] LABS: INR 1.3; Prothrombin Time 15.5 Seconds (11.1-14.7)
[2021-12-18 07:14] VITALS: BP 151/88; PULSE 93; RESP 18; TEMP 36.1; O2SAT 96
--- NOTE | 2021-12-18 07:17 | WPDHPUPDATE1 ---
History and Physical Update Update Date/Time: 12/18/21 07:17 History and Physical has been reviewed, including an updated exam of the patient. There are NO changes in the patient's condition. Risks, benefits, and alternatives have been discussed and questions answered. Patient agrees to proceed with procedure.
[2021-12-18] MEDS: ceFAZolin 3 GM/D5W 100 ML 100 ML IVPB (07:30)
[2021-12-18 08:22] VITALS: BP 118/61; PULSE 85; RESP 14; O2SAT 96
--- NOTE | 2021-12-18 08:40 | P.OP_ITS ---
Procedure Note - Detailed Date of Procedure 12/18/21 Pre-op Diagnosis incarcerated umbilical hernia Post-op Diagnosis Same Procedure Performed repair of incarcerated umbilical hernia with mesh Surgeon Suzan Rowland MD Anesthesia General and Local Indications 61 y/o M c incarcerated umbilical hernia Findings incarcerated umbilical hernia c omentum Description of Procedure The patient was taken to the operating room placed in the supine position. After adequate induction of general anesthesia, the patient was prepped and draped in the normal sterile fashion. A time-out was then done to verify the patient's identity, as well as the procedure being performed. I began by localizing the area around the umbilicus. I then made a curvilinear incision in the infraumbilical fold. This was taken down to level fascia. I then was able to bluntly dissect around the umbilicus. I then carefully dissected the umbilicus off the underlying fascia. I then noted a moderate defect with incarcerated omentum. I was able to mobilize the incarcerated tissue and reduce it back into the abdominal cavity. This left an approximately 3 cm defect. I then placed a 6.4 cm round piece of ventralex mesh in the underlay position. This was noted to have good, wide local coverage of the defect. I then closed this defect primarily with interrupted 0 Ethibond suture over the underlay mesh repair. I then reapproximated the umbilicus to the fascia with a 3 0 Vicryl U- stitch. The subcutaneous tissue was then closed with 3 0 Vicryl suture. The skin was closed with 4 0 Monocryl subcuticular suture. Dermabond was then placed on the wound. The patient tolerated the procedure well was alert in the operating room postop. He will be transferred to the recovery room in stable condition. Implants 6.4 cm ventralex mesh in underlay position Estimated Blood Loss 5 Drains No Packing No Pathology None sent Complications No immediate complications Condition Stable Disposition PACU
[2021-12-18 08:52] VITALS: BP 112/56; PULSE 83; RESP 14; O2SAT 98
[2021-12-18] MEDS: oxyCODONE HCL (*CRX) 5 MG TAB IR PO (09:10)
[2021-12-18] MEDS: fentaNYL CITRATE INJ (*CRX) 100 MCG/2 ML VIAL 25 MCG IV PUSH ×2 (09:21→09:29)
[2021-12-18 09:22] VITALS: BP 139/69; PULSE 70; RESP 14
[2021-12-18 09:48] LABS: Glucose Point of Care 226 mg/dl (65-105)
[2021-12-18 09:52] VITALS: BP 142/69; PULSE 69; RESP 14
[2021-12-18 10:10] VITALS: BP 137/67; PULSE 70; RESP 14
== END 2021-12-18 10:10 | disposition home or self-care (01) ==
PROVIDERS: Anesthesiology; PCP Emergency Medicine; Visit Provider Surgery
PROC: (CPT 49587; principal; 2021-12-18 07:30)
DX: K42.0 Umbilical hernia with obstruction, without gangrene (principal); Z79.01 Long term (current) use of anticoagulants; Z79.82 Long term (current) use of aspirin; Z79.84 Long term (current) use of oral hypoglycemic drugs; I25.118 Atherosclerotic heart disease of native coronary artery with other forms of angina pectoris; I11.9 Hypertensive heart disease without heart failure; E78.5 Hyperlipidemia, unspecified; E11.9 Type 2 diabetes mellitus without complications; F17.290 Nicotine dependence, other tobacco product, uncomplicated; E66.9 Obesity, unspecified; Z68.39 Body mass index [BMI] 39.0-39.9, adult
CPT/HCPCS: 49587; 36415; 82948; 85610; A9270; C1781; J0690; J1100; J1885; J2250; J2405; J2704; J3010; J7120

== ENCOUNTER 2022-08-13 19:13 | Emergency (ER) | payer OTHER, SELFPAY ==
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
[2022-08-13 19:20] VITALS: TEMP 36.2
[2022-08-13 19:36] VITALS: BP 167/88; PULSE 77; RESP 16; O2SAT 98
[2022-08-13] MEDS: MORPHINE SULFATE (*CRX) 4 MG/ML INJ IV PUSH (19:45)
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
[2022-08-13 20:22] LABS: Basophils Percent Auto 0.5 % (0.2-1.2); Eosinophils Absolute Auto 0.2 K/mm3 (0-0.3); Eosinophils Percent Auto 2.6 % (0-4.4); Hematocrit 42.3 % (42.0-52.0); Hemoglobin 14.5 g/dL (14.0-18.0); Immature Granulocyte Absolute 0.02 K/mm3 (0.00-0.031); Immature Granulocyte Percent A 0.2 % (0-0.5); Lymphocytes Absolute Auto 2.08 K/mm3 (0.9-3.2); Mean Corpuscular HGB Conc 34.3 g/dl (32-36); Mean Corpuscular Hemoglobin 28.7 pg (26-34); Mean Corpuscular Volume 83.8 fl (80-100); Mean Platelet Volume 9.4 fl (7.4-10.4); Monocytes Absolute Auto 0.7 K/mm3 (0.1-0.6); Monocytes Percent Auto 8.4 % (2.6-8.5); Neutrophils Percent Auto 62.3 % (45.5-73.1); Platelet Count Result 161 k/mm3 (150-375); Red Blood Count 5.05 M/mm3 (4.6-6.20); Red Cell Distribution Width 13.8 % (11.5-14.5)
[2022-08-13 20:30] LABS: Anion Gap 6 mmol/L (8-16); Blood Urea Nitrogen 12 mg/dL (9-20); Calcium 8.7 mg/dL (8.4-10.2); Carbon Dioxide 26 mmol/L (22-30); Chloride 99 mmol/L (98-107); Estimated Glomerular Filt Rate > 60; Glucose 242 mg/dL (65-110); Potassium 4.2 mmol/L (3.4-5.0); Sodium 131 mmol/L (137-145)
[2022-08-13 20:32] LABS: INR 3.1; Prothrombin Time 30.6 Seconds (11.1-14.7)
[2022-08-13 20:33] LABS: Partial Thromboplastin Time 37.7 SECONDS (22.3-36.8)
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
[2022-08-13 21:55] VITALS: BP 155/67; PULSE 62; RESP 16; O2SAT 97
== END 2022-08-13 21:58 | disposition home or self-care (01) ==
PROVIDERS: Emergency Provider Emergency Medicine; PCP Emergency Medicine
DX: S09.90XA Unspecified injury of head, initial encounter (principal); S49.92XA Unspecified injury of left shoulder and upper arm, initial encounter; I25.10 Atherosclerotic heart disease of native coronary artery without angina pectoris; I11.9 Hypertensive heart disease without heart failure; E78.5 Hyperlipidemia, unspecified; E11.9 Type 2 diabetes mellitus without complications; F17.290 Nicotine dependence, other tobacco product, uncomplicated; M19.012 Primary osteoarthritis, left shoulder; M47.812 Spondylosis without myelopathy or radiculopathy, cervical region; Z79.84 Long term (current) use of oral hypoglycemic drugs; Z79.01 Long term (current) use of anticoagulants; Z79.82 Long term (current) use of aspirin; V43.52XA Car driver injured in collision with other type car in traffic accident, initial encounter
CPT/HCPCS: 36415; 70450; 72125; 73030; 80048; 85025; 85610; 85730; 96374; 99284; J2270

== ENCOUNTER 2023-07-21 08:14 | Outpatient (CLI) | payer MEDICARE, SELFPAY ==
[2023-07-21 09:13] LABS: Hemoglobin A1C 8.3 % (<5.7)
[2023-07-21 09:23] LABS: Alanine Aminotransferase 29 U/L (6-50); Albumin Level 4.1 g/dL (3.5-5.1); Alkaline Phosphatase 62 U/L (38-126); Anion Gap 9 mmol/L (8-16); Aspartate Amino Transferase 28 U/L (17-59); Bilirubin,Total 0.7 mg/dL (0.2-1.3); Blood Urea Nitrogen 8 mg/dL (9-20); Calcium 8.9 mg/dL (8.4-10.2); Carbon Dioxide 26 mmol/L (22-30); Chloride 101 mmol/L (98-107); Cholesterol 139 mg/dL (0-200); Estimated Glomerular Filt Rate > 60; Glucose 200 mg/dL (65-110); HDL Direct 32 mg/dL; Sodium 136 mmol/L (137-145); Triglycerides 218 mg/dL (<150)
[2023-07-21 09:33] LABS: LDL Cholesterol Direct 74 mg/dL
[2023-07-21 10:36] LABS: Creatinine Urine 127.2 mg/dL
[2023-07-21 11:51] LABS: Microalbumin Urine Random 374.6 mg/L (0-16.7)
[2023-07-21 11:52] LABS: MALB Creatinine Ratio 294.5 mg/g (0-30)
[2023-07-24 22:21] LABS: Vitamin D 1,25 (OH)2 Total 32 pg/mL (18-72); Vitamin D2 1,25 (OH)2 <8 pg/mL; Vitamin D3 1,25 (OH)2 32 pg/mL
== END 2023-07-21 08:15 | disposition home or self-care (01) ==
PROVIDERS: PCP Emergency Medicine; Visit Provider Emergency Medicine
DX: E55.9 Vitamin D deficiency, unspecified (principal); E11.9 Type 2 diabetes mellitus without complications
CPT/HCPCS: 36415; 80053; 80061; 82043; 82652; 83036

== ENCOUNTER 2023-07-26 07:37 | Emergency (ER) | payer MEDICARE, SELFPAY ==
[2023-07-26 07:52] VITALS: BP 172/86; PULSE 74; RESP 21; TEMP 36.8; O2SAT 96
[2023-07-26 08:03] VITALS: O2SAT 96
--- NOTE | 2023-07-26 08:04 | ED.URI ---
HPI - URI/Sore Throat General Chief Complaint: Upper Respiratory Infection Stated Complaint: covid positive/st Time Seen by Provider: 07/26/23 07:43 History of Present Illness HPI Narrative: Patient is a 62-year-old male who presents to the emergency department this morning complaining of sore throat. Patient states that he recently tested positive for COVID through a home COVID test. 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 Prior to getting colder, patient noticed that he was having a sore throat and states that his sore throat has persisted and this it was bothering him to the point where it was difficult for him to swallow his medications. Patient is denying any cough or shortness of breath at this time. Patient also denies any chest pain, shortness of breath, nausea, vomiting, abdominal pain, dysuria, hematuria, constipation, diarrhea, melena, hematochezia, fevers or chills. Patient also denies any headaches, dizziness, lightheadedness, blurry visions, focal weakness, numbness and or tingling. There are no other modifying, alleviating, or precipitating factors at this time. Related Data Home Medications Medication Instructions Recorded Confirmed isosorbide mononitrate 60 mg 60 mg PO QAM 12/08/21 07/26/23 tablet,extended release 24 hr warfarin 6 mg tablet 6 mg PO 3XW 12/08/21 07/26/23 aspirin 81 mg tablet,delayed 81 mg PO DAILY 12/14/21 07/26/23 release glyburide 2.5 mg tablet 2.5 mg PO QAM 07/26/23 07/26/23 Allergies Allergy/AdvReac Type Severity Reaction Status Date / Time hydromorphone AdvReac Mild Nausea and Verified 07/26/23 07:58 Vomiting Review of Systems Review of Systems: All systems are reviewed and are negative unless stated otherwise in the HPI. [facility] Past Medical History Medical History Coronary artery disease involving [place] coronary artery Heart disease History of kidney stones HLD (hyperlipidemia) HTN (hypertension) Type 2 diabetes mellitus without complication Surgical History Surgical History H/O umbilical hernia repair Repair of incarcerated umbilical hernia with mesh . History of heart surgery History of repair of right rotator cuff Family History Family History Sibling Hypertension Family history of malignant neoplasm of kidney Father Family history of Parkinson's disease, Onset Age: 80 Family history of dementia, Onset Age: 80 Mother Tuberculosis Other Diabetes mellitus Social History Social History Smoking status: Current every day smoker Tobacco type: pipe and cigars Additional smoking assessment comments: CURRENTLY PIPER EVERY 3 DAYS, SMOKED CIGARS IN PAST FOR 8 YRS Alcohol intake: current Drinks per week: 3 Alcohol use details: Few times a month Substance use: never Substance use type: does not use Living arrangements: with family Additional living arrangements comments: Occupation/Education: other Additional occupation/education comments: disabled Gender identity (if verbalized by the patient): Male Spiritual care concerns: No Exam Narrative: General: Alert, awake, afebrile, in no acute distress. HEENT: PERRL, no rhinorrhea, no post nasal drip, posterior pharynx erythema without any exudate. Neck: Trachea midline, no JVD, no lymphadenopathy. Cardiovascular: Regular rate and rhythm, no murmurs, rubs or gallops, no peripheral edema. Respiratory: Clear to auscultation bilaterally, no tachypnea, no wheezing, no rhonchi, no rubs, no respiratory distress. Abdomen: Soft, nontender, nondistended, no rebound, no guarding, no peritoneal signs. Musculoskeletal: No joint swelling or deformity, normal muscle tone. Skin: No rashes or petechia, no signs of infection.
[2023-07-26 09:22] LABS: Strep Group A RT-PCR NOT DETECTED (Negative)
[2023-07-26 09:33] VITALS: BP 127/88; PULSE 73; RESP 20; O2SAT 96
== END 2023-07-26 09:34 | disposition home or self-care (01) ==
PROVIDERS: Emergency Provider Emergency Medicine; PCP Emergency Medicine
DX: J02.9 Acute pharyngitis, unspecified (principal); I10 Essential (primary) hypertension; E78.5 Hyperlipidemia, unspecified; E11.9 Type 2 diabetes mellitus without complications; I25.10 Atherosclerotic heart disease of native coronary artery without angina pectoris; Z87.442 Personal history of urinary calculi
CPT/HCPCS: 87651; 99283

== ENCOUNTER 2023-11-11 08:24 | Outpatient (CLI) | payer MEDICARE, SELFPAY ==
[2023-11-11 08:59] LABS: Alanine Aminotransferase 47 U/L (6-50); Albumin Level 4.4 g/dL (3.5-5.1); Alkaline Phosphatase 63 U/L (38-126); Anion Gap 8 mmol/L (4-12); Aspartate Amino Transferase 42 U/L (17-59); Bilirubin,Total 0.8 mg/dL (0.2-1.3); Blood Urea Nitrogen 13 mg/dL (9-20); Calcium 9.3 mg/dL (8.4-10.2); Carbon Dioxide 26 mmol/L (22-30); Chloride 103 mmol/L (98-107); Cholesterol 145 mg/dL (0-200); Estimated Glomerular Filt Rate > 60; Glucose 227 mg/dL (65-110); HDL Direct 31 mg/dL; Sodium 137 mmol/L (137-145); Triglycerides 202 mg/dL (<150)
[2023-11-11 09:11] LABS: LDL Cholesterol Direct 91 mg/dL
[2023-11-11 09:36] LABS: Vitamin D 25 Hydroxy 35.7 ng/mL
[2023-11-11 09:43] LABS: MALB Creatinine Ratio 52.2 mg/g (0-30); Microalbumin Urine Random 114.4 mg/L (0-16.7)
[2023-11-11 10:49] LABS: Hemoglobin A1C 10.8 % (<5.7)
[2023-11-15 17:38] LABS: Testosterone Free 121.3 pg/mL (35.0-155.0); Testosterone Total 625 ng/dL (250-1100)
== END 2023-11-11 08:25 | disposition home or self-care (01) ==
LOC: ANHLAB 08:29
PROVIDERS: PCP Emergency Medicine; Visit Provider Emergency Medicine
DX: E78.5 Hyperlipidemia, unspecified (principal); R53.83 Other fatigue; E11.9 Type 2 diabetes mellitus without complications; E55.9 Vitamin D deficiency, unspecified
CPT/HCPCS: 36415; 80053; 80061; 82043; 82306; 83036; 84402; 84403

== ENCOUNTER 2024-06-15 10:10 | Outpatient (CLI) | payer MEDICARE, SELFPAY ==
--- NOTE | ~2024-06-15 | CT_ITS ---
Non-contrast Head CT History: Amnesia COMPARISON: 08/13/2022 Technique: Axial non-contrast imaging of the brain was performed. Dose reduction technique was used on this scan by utilizing automated exposure control and iterative reconstruction technique. The dose -length product (DLP) was 681.00 mGy-cm. Findings: There is no evidence of intracranial hemorrhage, mass lesion, or acute infarct. Brain par enchyma appears normal. The ventricles and subarachnoid spaces are normal in size. The calvarium ap pears normal. The visualized paranasal sinuses and mastoid air cells are clear. Impression: No significant abnormality seen. Reviewed, dictated and finalized at location . Impression: No significant abnormality seen.
== END 2024-06-15 10:11 | disposition home or self-care (01) ==
PROVIDERS: PCP Emergency Medicine; Visit Provider Emergency Medicine
DX: R41.3 Other amnesia (principal)
CPT/HCPCS: 70450

== ENCOUNTER 2024-06-20 10:03 | Observation (INO) | payer MEDICARE, SELFPAY ==
[2024-06-20] VITALS (10 sets, daily range): BP systolic 128–131; BP diastolic 63–77; PULSE 72–83; RESP 12–20; TEMP 36.6–36.7; O2SAT 95–99; BMI 36.1
--- NOTE | ~2024-06-20 | XR_ITS ---
Clinical Indication: Chest pain PA and lateral views of the chest: Comparison: 12/23/2020 Findings: The lungs are clear, without evidence of focal consolidation or pleural effusion. Cardiome diastinal silhouette is stable, status post valve replacement with pacemaker device. Bones and soft t issues are unremarkable. Impression: Clear lungs. Reviewed, dictated and finalized at location . T UP SPECIALIST Impression: Clear lungs.
--- NOTE | ~2024-06-20 | NM_ITS ---
EXAMINATION: NM jo stress w perfusion DATE: 06/22/2024 14:03 CAREER SERVICES REPRESENTATIVE INDICATION: Chest pain TECHNIQUE: Rest images were obtained following intravenous administration of 10.6 mCi Tc99m tetrofosm in (Myoview). The patient was infused intravenously with Lexiscan (regadenoson). Then, 33 mCi Tc99m t etrofosmin (Myoview) was administered intravenously, and stress images were obtained. Data was recons tructed into short axis and horizontal and vertical long axis SPECT images. Gated SPECT images were a lso obtained. COMPARISON: 12/24/2020. FINDINGS: There is no definite reversible or fixed perfusion abnormality to suggest ischemia or infar ction. There is no segmental wall motion abnormality. Left ventricular ejection fraction measures 4 7%. IMPRESSION: 1. No definite ischemia or infarct. 2. Decreased left ventricular ejection fraction measuring 47%. Reviewed, dictated and finalized at location B. ER SERVICES REPRESENTATIVE
--- NOTE | 2024-06-20 10:03 | ECG_ITS ---
Test Date: 2024-06-20 10:12:47 Measurements Intervals [place] Rate: 86 P: 229 MO: 176 QRS: -67 QRSD: 205 T: 111 QT: 466 QTc: 558 Interpretive Statements ELECTRONIC ATRIAL PACEMAKER ELECTRONIC VENTRICULAR PACEMAKER BASELINE ARTIFACT- I, II, AVR NO FURTHER INTERPRETATION IS POSSIBLE ATYPICAL ECG No previous ECG available for comparison Electronically Signed On 06-20-2024 10:54:08 MEDIA SERVICES COORDINATOR by Tacos Yoo D.O.
--- NOTE | 2024-06-20 10:20 | ED_ITS ---
HPI - Chest Pain General Chief Complaint: Chest Pain <Rafael Honeycutt PA-C - Last Filed: 06/20/24 16:09> Stated Complaint: heart needs looked at <GINNA Ahmadi Last Filed: 06/20/24 16:09> Time Seen by Provider: 06/20/24 10:07 <GINNA Ahmadi Last Filed: 06/20/24 16:09> Source: patient <GINNA Ahmadi Last Filed: 06/20/24 16:09> Mode of arrival: ambulatory <GINNA Ahmadi Last Filed: 06/20/24 16:09> Limitations: no limitations <GINNA Ahmadi Last Filed: 06/20/24 16:09> History of Present Illness HPI narrative: This is a 63-year-old male with PMH of T2 dm, HLD, CAD, HTN, s/p atrial pacemaker, s/p stent placement, history of prosthetic valve who presents to the ED for chief complaint of chest pain beginning around 6:00 a.m. this morning. Patient reports he is undergoing a lot of stress with getting a divorce with wif e this month. States he was feeling fine yesterday but chest pain really started today. Reports he had an episode of nausea and diaphoresis this morning that lasted for nearly an hour. States since time this has been located in the left central chest. Does not radiate. Describes it as a squeezing/gripping pain. He does take warfarin for mechanical valve. Follows with Lilia Denies shortness of breath, exertional component of chest pain, abdominal pain, vomiting, back pain, numbness, weakness, syncope. <GINNA Ahmadi Last Filed: 06/20/24 16:09> Related Data Home Medications: Home Medications Medication Instructions Recorded Confirmed isosorbide mononitrate 60 mg 60 mg PO QAM 12/08/21 06/20/24 tablet,extended release 24 hr aspirin 81 mg tablet,delayed 81 mg PO DAILY 12/14/21 06/20/24 release glyburide 2.5 mg tablet 2.5 mg PO QAM 07/26/23 06/20/24 metformin 1,000 mg tablet 1,000 mg PO BID 06/20/24 06/20/24 metoprolol succinate 50 mg 50 mg PO DAILY 06/20/24 06/20/24 tablet,extended release 24 hr rosuvastatin 10 mg tablet 10 mg PO DAILY 06/20/24 06/20/24 warfarin 6 mg tablet 6 mg PO 3XW 06/20/24 06/20/24 <Rafael Honeycutt PA-C - Last Filed: 06/20/24 16:09> Allergies/Adverse Reactions: Allergies Allergy/AdvReac Type Severity Reaction Status Date / Time hydromorphone AdvReac Mild Nausea and Verified 06/20/24 10:16 Vomiting <Rafael Honeycutt PA-C - Last Filed: 06/20/24 16:09> Review of Systems Review of Systems: All systems as dictated in HPI <GINNA Ahmadi Last Filed: 06/20/24 16:09> [facility] Past Medical History Medical History: Medical History Chronic anticoagulation Coronary artery disease involving [place] coronary artery Erectile dysfunction Heart disease History of kidney stones HLD (hyperlipidemia) HTN (hypertension) Incarcerated umbilical hernia s/p repair Presence of prosthetic heart valve Tobacco abuse Type 2 diabetes mellitus without complication <Rafael Honeycutt PA-C - Last Filed: 06/20/24 16:09> Surgical History Surgical History: Surgical History H/O umbilical hernia repair Repair of incarcerated umbilical hernia with mesh /. History of heart surgery History of repair of right rotator cuff <Rafael Honeycutt PA-C - Last Filed: 06/20/24 16:09> Family History Family History: Family History Sibling Hypertension Family history of malignant neoplasm of kidney Father Family history of Parkinson's disease, Onset Age: 80 Family history of dementia, Onset Age: 80 Mother Tuberculosis Other Diabetes mellitus <Rafael Honeycutt PA-C - Last Filed: 06/20/24 16:09> Social History Social History: Social History Smoking status: Current some day smoker Tobacco type: pipe and cigars Additional smoking assessment comments: PT smokes marijuana from a pipe a couple times a week Alcohol intake: current Drinks per week: 3 Alcohol use details: Few times a month Substance use: current Substance use type: marijuana Do You Feel Safe in your Home?: Yes Lack of Transportation: No Lack of Food: Sometimes True Current Housing: I Have Housing Concerned About Future Housing: YES Difficulty Paying Gas/Electric Bills: No Difficulty Paying for Meds: No Currently Unemployed: No Education: High School Diploma/GED Difficulty w/ Childcare or Family Care: No Living arrangements: with family Additional living arrangements comments: Occupation/Education: other Additional occupation/education comments: disabled Gender identity (if verbalized by the patient): Male Spiritual care concerns: No <Rafael Honeycutt PA-C - Last Filed: 06/20/24 16:09> Exam Narrative: GENERAL: Well-appearing, well-nourished, and in no acute distress. HEAD: Normocephalic, atraumatic. EYES: PERRLA and EOMI. ENT: Nares clear, no rhinorrhea or epistaxis. Mucous membranes moist. Oropharynx without tonsillar hypertrophy exudate or other lesions. NECK: Supple. No adenopathy or masses. CHEST: No respiratory distress. Clear to auscultation. No wheezes rales or rhonchi HEART: Regular rate and rhythm. No murmur heard. Normal peripheral pulses. ABDOMEN: Soft, nontender, nondistended, normal active bowel sounds. MSK: Normal range of motion. No edema. SKIN: Warm, dry, no rash. NEURO: Alert and oriented x4. No focal deficits. PSYCH: Normal mood and affect. <Rafael Honeycutt PA-C - Last Filed: 06/20/24 16:09> Course PELLET POST INSPECTOR/PA Physician Supervision I agree with midlevel documentation; I performed the medical decision making component of this evaluation. <Carolann Guardado MD - Last Filed: 06/20/24 16:59> Reevaluation(s) Reevaluation #1: Patient is sleeping and resting comfortably on re-evaluation. He has received aspirin and Tylenol. <Rafael Honeycutt PA-C - Last Filed: 06/20/24 16:09> Date: 06/20/24 <Rafael Honeycutt PA-C - Last Filed: 06/20/24 16:09> Time: 12:23 <Rafael Honeycutt PA-C - Last Filed: 06/20/24 16:09> Vital Signs Vital signs: Vital Signs Temperature 97.8 F 06/20/24 10:07 Pulse Rate 83 06/20/24 10:07 Respiratory Rate 12 06/20/24 10:07 Blood Pressure 128/77 06/20/24 10:07 Pulse Oximetry 99 06/20/24 10:07 Oxygen Delivery Room Air 06/20/24 10:07 Temperature 97.8 F 06/20/24 16:05 Pulse Rate 77 06/20/24 16:05 Respiratory Rate 20 06/20/24 16:05 Blood Pressure 131/77 06/20/24 16:05 Pulse Oximetry 95 06/20/24 16:05 Oxygen Delivery Room Air 06/20/24 16:00 <Rafael Honeycutt PA-C - Last Filed: 06/20/24 16:09> Vital Signs Temperature 97.8 F 06/20/24 10:07 Pulse Rate 83 06/20/24 10:07 Respiratory Rate 12 06/20/24 10:07 Blood Pressure 128/77 06/20/24 10:07 Pulse Oximetry 99 06/20/24 10:07 Oxygen Delivery Room Air 06/20/24 10:07 Temperature 97.8 F 06/20/24 16:05 Pulse Rate 77 06/20/24 16:05 Respiratory Rate 20 06/20/24 16:05 Blood Pressure 131/77 06/20/24 16:05 Pulse Oximetry 95 06/20/24 16:05 Oxygen Delivery Room Air 06/20/24 16:00 <Carolann Guardado MD - Last Filed: 06/20/24 16:59> MDM - Chest Pain MDM Narrative Medical decision making narrative: This is a 63 yo male here presents to the ED for chief complaint of chest pain onset today. He has a pretty significant heart history. Vitals are normal. Exam is benign overall. Anticoagulated on warfarin. EKG shows electronic atrial pacemaker. Lab work shows normal 0 and 3 hour troponins. CBC unremarkable. INR a bit supratherapeutic at 4.0 for mechanical valve, however no significant abnormalities with coags Lipase slightly elevated but not consistent with pancreatitis. No abdominal tenderness or abdominal pain. Chest x-ray shows no acute findings. Patient's heart score today is 5. Discussed with patient and family the elevated heart score but reassuring ER workup. They feel more comfortable with him staying in the hospital. I then discussed the case with hospitalist, NICOLE Hinojosa accepts admission. Requesting cardiology consult. Spoke with Dr. Ward (cardiology) who agrees with admitting the patient to the service. Patient will be admitted in stable condition to the IMU. <Rafael Honeycutt PA-C - Last Filed: 06/20/24 16:09> Lab Data Result diagrams: 06/20/24 10:20 06/20/24 10:20 <Rafael Honeycutt PA-C - Last Filed: 06/20/24 16:09> Labs: Lab Results 06/20/24 06/20/24 06/20/24 Range/Units 10:19 10:20 13:24 WBC 9.0 (4.5-10.0) K/mm3 RBC 5.33 (4.6-6.20) M/mm3 Hgb 15.8 (14.0-18.0) g/dL Hct 45.2 (42.0-52.0) % MCV 84.8 (80-100) fl MCH 29.6 (26-34) pg MCHC 35.0 (32-36) g/dl RDW 13.7 (11.5-14.5) % Plt Count 168 (150-375) k/mm3 MPV 10.0 (7.4-10.4) fl Immature Gran % (Auto) 0.4 (0-0.5) % Neut % (Auto) 80.7 H (45.5-73.1) % Lymph % (Auto) 12.5 L (18.3-44.2) % [place] % (Auto) 5.2 (2.6-8.5) % Eos % (Auto) 0.8 (0-4.4) % Baso % (Auto) 0.4 (0.2-1.2) % Lymph # (Auto) 1.12 (0.9-3.2) K/mm3 [place] # (Auto) 0.5 (0.1-0.6) K/mm3 Eos # (Auto) 0.1 (0-0.3) K/mm3 Baso # (Auto) 0.0 (0.0-0.1) K/mm3 Abs Immat Gran (auto) 0.04 H (0.00-0.031) K/mm3 Absolute Neuts (auto) 7.2 H (1.3-6.7) K/mm3 Absolute Nucleated RBC 0.000 (0.0-0.012) K/mm3 Nucleated RBC % 0.0 (0.0-0.2) % PT 39.5 H (11.1-14.7) Seconds INR 4.0 APTT 36.8 (22.3-36.8) Seconds Sodium 136 L (137-145) mmol/L Potassium 4.1 (3.4-5.0) mmol/L Chloride 100 (98-107) mmol/L Carbon Dioxide 27 (22-30) mmol/L Anion Gap 9 (4-12) mmol/L BUN 14 (9-20) mg/dL Creatinine 0.60 L (0.7-1.3) mg/dL Estim Creat Clear Calc 129 ml/min Estimated GFR > 60 (59 - ) Glucose 230 H (65-110) mg/dL Calcium 9.0 (8.4-10.2) mg/dL Total Bilirubin 1.0 (0.2-1.3) mg/dL AST 40 (17-59) U/L ALT 36 (6-50) U/L Alkaline Phosphatase 64 (38-126) U/L Troponin I < 0.012 < 0.012 (0.000-0.034) ng/mL Total Protein 8.0 (6.3-8.2) g/dL Albumin 4.2 (3.5-5.1) g/dL Lipase 347 H (23-300) U/L <Rafael Honeycutt PA-C - Last Filed: 06/20/24 16:09> Lab Results 06/20/24 06/20/24 06/20/24 Range/Units 10:19 10:20 13:24 WBC 9.0 (4.5-10.0) K/mm3 RBC 5.33 (4.6-6.20) M/mm3 Hgb 15.8 (14.0-18.0) g/dL Hct 45.2 (42.0-52.0) % MCV 84.8 (80-100) fl MCH 29.6 (26-34) pg MCHC 35.0 (32-36) g/dl RDW 13.7 (11.5-14.5) % Plt Count 168 (150-375) k/mm3 MPV 10.0 (7.4-10.4) fl Immature Gran % (Auto) 0.4 (0-0.5) % Neut % (Auto) 80.7 H (45.5-73.1) % Lymph % (Auto) 12.5 L (18.3-44.2) % [place] % (Auto) 5.2 (2.6-8.5) % Eos % (Auto) 0.8 (0-4.4) % Baso % (Auto) 0.4 (0.2-1.2) % Lymph # (Auto) 1.12 (0.9-3.2) K/mm3 [place] # (Auto) 0.5 (0.1-0.6) K/mm3 Eos # (Auto) 0.1 (0-0.3) K/mm3 Baso # (Auto) 0.0 (0.0-0.1) K/mm3 Abs Immat Gran (auto) 0.04 H (0.00-0.031) K/mm3 Absolute Neuts (auto) 7.2 H (1.3-6.7) K/mm3 Absolute Nucleated RBC 0.000 (0.0-0.012) K/mm3 Nucleated RBC % 0.0 (0.0-0.2) % PT 39.5 H (11.1-14.7) Seconds INR 4.0 APTT 36.8 (22.3-36.8) Seconds Sodium 136 L (137-145) mmol/L Potassium 4.1 (3.4-5.0) mmol/L Chloride 100 (98-107) mmol/L Carbon Dioxide 27 (22-30) mmol/L Anion Gap 9 (4-12) mmol/L BUN 14 (9-20) mg/dL Creatinine 0.60 L (0.7-1.3) mg/dL Estim Creat Clear Calc 129 ml/min Estimated GFR > 60 (59 - ) Glucose 230 H (65-110) mg/dL Calcium 9.0 (8.4-10.2) mg/dL Total Bilirubin 1.0 (0.2-1.3) mg/dL AST 40 (17-59) U/L ALT 36 (6-50) U/L Alkaline Phosphatase 64 (38-126) U/L Troponin I < 0.012 < 0.012 (0.000-0.034) ng/mL Total Protein 8.0 (6.3-8.2) g/dL Albumin 4.2 (3.5-5.1) g/dL Lipase 347 H (23-300) U/L <Carolann Guardado MD - Last Filed: 06/20/24 16:59> ECG Data EKG #1: ECG completion date: 06/20/24 <Rafael Honeycutt PA-C - Last Filed: 06/20/24 16:09> ECG completion time: 10:12 <Rafael Honeycutt PA-C - Last Filed: 06/20/24 16:09> Prior ECG tracings: not available for review <Rafael Honeycutt PA-C - Last Filed: 06/20/24 16:09> Interpretation: Paced rhythm Rate 86 QTC 558 No acute ischemic findings <Rafael Honeycutt PA-C - Last Filed: 06/20/24 16:09> Discharge Plan Discharge Clinical Impression: Unstable angina <Rafael Honeycutt PA-C - Last Filed: 06/20/24 16:09> Patient Disposition: Still a Patient <Rafael Honeycutt PA-C - Last Filed: 06/20/24 16:09> Condition: Stable <Rafael Honeycutt PA-C - Last Filed: 06/20/24 16:09> Quality HEART score for chest pain patients History: moderately suspicious <Rafael Honeycutt PA-C - Last Filed: 06/20/24 16:09> ECG: normal <Rafael Honeycutt PA-C - Last Filed: 06/20/24 16:09> Age: > or = to 65 years <Rafael Honeycutt PA-C - Last Filed: 06/20/24 16:09> Risk factors: > or = to 3 risk factors of atherosclerotic disease <Rafael Honeycutt PA-C - Last Filed: 06/20/24 16:09> Troponin: < or = to 1x normal limit <Rafael Honeycutt PA-C - Last Filed: 06/20/24 16:09> Heart score: 5 <Rafael Honeycutt PA-C - Last Filed: 06/20/24 16:09> 5 <Carolann Guardado MD - Last Filed: 06/20/24 16:59>
[2024-06-20 10:27] LABS: Basophils Percent Auto 0.4 % (0.2-1.2); Eosinophils Absolute Auto 0.1 K/mm3 (0-0.3); Eosinophils Percent Auto 0.8 % (0-4.4); Hematocrit 45.2 % (42.0-52.0); Hemoglobin 15.8 g/dL (14.0-18.0); Immature Granulocyte Absolute 0.04 K/mm3 (0.00-0.031); Immature Granulocyte Percent A 0.4 % (0-0.5); Lymphocytes Absolute Auto 1.12 K/mm3 (0.9-3.2); Lymphocytes Percent Auto 12.5 % (18.3-44.2); Mean Corpuscular Hemoglobin 29.6 pg (26-34); Mean Corpuscular Volume 84.8 fl (80-100); Monocytes Absolute Auto 0.5 K/mm3 (0.1-0.6); Monocytes Percent Auto 5.2 % (2.6-8.5); Neutrophils Absolute Auto 7.2 K/mm3 (1.3-6.7); Neutrophils Percent Auto 80.7 % (45.5-73.1); Platelet Count Result 168 k/mm3 (150-375); Red Blood Count 5.33 M/mm3 (4.6-6.20); Red Cell Distribution Width 13.7 % (11.5-14.5)
[2024-06-20] MEDS: ASPIRIN 81 MG CHEWABLE TABLET 324 MG PO (10:27)
[2024-06-20] MEDS: ACETAMINOPHEN 500 MG TABLET 1000 MG PO (10:28)
[2024-06-20 10:55] LABS: Alanine Aminotransferase 36 U/L (6-50); Albumin Level 4.2 g/dL (3.5-5.1); Alkaline Phosphatase 64 U/L (38-126); Anion Gap 9 mmol/L (4-12); Aspartate Amino Transferase 40 U/L (17-59); Blood Urea Nitrogen 14 mg/dL (9-20); Carbon Dioxide 27 mmol/L (22-30); Chloride 100 mmol/L (98-107); Estimated CRCL calculation 129 ml/min; Estimated Glomerular Filt Rate > 60; Glucose 230 mg/dL (65-110); Lipase 347 U/L (23-300); Potassium 4.1 mmol/L (3.4-5.0); Sodium 136 mmol/L (137-145)
[2024-06-20 11:04] LABS: Partial Thromboplastin Time 36.8 Seconds (22.3-36.8); Prothrombin Time 39.5 Seconds (11.1-14.7)
[2024-06-20 11:07] LABS: Troponin I < 0.012 ng/mL (0.000-0.034)
--- NOTE | 2024-06-20 13:34 | ECG_ITS ---
Test Date: 2024-06-20 14:38:27 Measurements Intervals [place] Rate: 74 P: 202 NM: 178 QRS: -63 QRSD: 205 T: 123 QT: 496 QTc: 551 Interpretive Statements ELECTRONIC ATRIAL PACEMAKER ELECTRONIC VENTRICULAR PACEMAKER NO FURTHER INTERPRETATION IS POSSIBLE ATYPICAL ECG Compared to ECG 06/20/2024 10:12:47 No significant changes Electronically Signed On 06-20-2024 15:02:00 EMPLOYMENT LAW ATTORNEY by Tacos Yoo D.O.
[2024-06-20 13:49] LABS: Troponin I < 0.012 ng/mL (0.000-0.034)
--- NOTE | 2024-06-20 14:31 | PM.IMHP ---
H&P: HPI History of Present Illness Date/Time: 06/20/24 14:31 Chief Complaint: Chest Pain Narrative: 63 y/o M presents here with chest pain with PMH of diabetes, HLD, CAD w/stent placement, HTN, atrial pacemaker, HLD, and history of prosthetic valve. The patient presents here from home for further evaluation of chest pain. He reports acute onset of nausea and diaphoresis at 6:00 a.m. this morning right after he experienced car issues. A short time later the sweating, pallor, lightheadedness, and nausea worsened that was then accompanied by chest pain. He described the chest pain as 6/10, gripping, nonradiating, intermittent lasting 3-4 minutes at a time, no aggravating factors, and partially alleviated by rest and TYL. Denies shortness of breath, dizziness, palpations, or GERD-like symptoms. He reports increased stress at home due to very recent divorce (early May). Patient has hx of CAD with 1-2 stents placed. Patient follows with Cardiology, Lilia ENRIQUEZ. He reports no reoccurrence of chest pain since arrival to the floor. Initial VS at presentation: 97.8? F, HR 83, RR 12, 128/77, and 99% on RA. ED workup showed: No leukocytosis, no anemia, INR 4.0, sodium 136, creatinine 0.6 and GFR >60, glucose 230, initial troponin negative, and lipase 347. CXR showed clear lungs. Initial EKG showed electronic atrial pacemaker, electronic ventricular pacemaker, no further interpretation possible. Review of Systems Review of Systems: All systems reviewed & are unremarkable except as noted in HPI and below [facility] Past Medical History Medical History Chronic anticoagulation Coronary artery disease involving [place] coronary artery Erectile dysfunction Heart disease History of kidney stones HLD (hyperlipidemia) HTN (hypertension) Incarcerated umbilical hernia s/p repair Presence of prosthetic heart valve Tobacco abuse Type 2 diabetes mellitus without complication Surgical History Surgical History H/O umbilical hernia repair Repair of incarcerated umbilical hernia with mesh 12/18. History of heart surgery History of repair of right rotator cuff Family History Family History Sibling Hypertension Family history of malignant neoplasm of kidney Father Family history of Parkinson's disease, Onset Age: 80 Family history of dementia, Onset Age: 80 Mother Tuberculosis Other Diabetes mellitus Social History Social History Smoking status: Current some day smoker Tobacco type: pipe and cigars Additional smoking assessment comments: PT smokes marijuana from a pipe a couple times a week Alcohol intake: current Drinks per week: 3 Alcohol use details: Few times a month Substance use: current Substance use type: marijuana Do You Feel Safe in your Home?: Yes Lack of Transportation: No Lack of Food: Sometimes True Current Housing: I Have Housing Concerned About Future Housing: YES Difficulty Paying Gas/Electric Bills: No Difficulty Paying for Meds: No Currently Unemployed: No Education: High School Diploma/GED Difficulty w/ Childcare or Family Care: No Living arrangements: with family Additional living arrangements comments: Occupation/Education: other Additional occupation/education comments: disabled Gender identity (if verbalized by the patient): Male Spiritual care concerns: No Meds Home Medications and Allergies Home Medications Medication Instructions Recorded Confirmed Type isosorbide mononitrate 60 mg 60 mg PO QAM 12/08/21 06/20/24 History tablet,extended release 24 hr aspirin 81 mg tablet,delayed 81 mg PO DAILY 12/14/21 06/20/24 History release glyburide 2.5 mg tablet 2.5 mg PO QAM 07/26/23 06/20/24 History warfarin 4 mg tablet See Rx Instructions .Route 02/03/24 06/20/24 Rx .COMPLEX #48 tabs glipizide 5 mg tablet See Rx Instructions .Route 04/13/24 06/20/24 Rx .COMPLEX #90 tabs losartan 100 mg tablet 100 mg PO DAILY #90 tabs 05/30/24 06/20/24 Rx donepezil 10 mg tablet (Aricept) 10 mg PO DAILY #90 tabs 06/04/24 06/20/24 Rx metformin 1,000 mg tablet 1,000 mg PO BID 06/20/24 06/20/24 History metoprolol succinate 50 mg 50 mg PO DAILY 06/20/24 06/20/24 History tablet,extended release 24 hr rosuvastatin 10 mg tablet 10 mg PO DAILY 06/20/24 06/20/24 History warfarin 6 mg tablet 6 mg PO 3XW 06/20/24 06/20/24 History Allergies Allergy/AdvReac Type Severity Reaction Status Date / Time hydromorphone AdvReac Mild Nausea and Verified 06/20/24 10:16 Vomiting Vital Signs Vital Signs - 24 hr 06/20/24 10:07 06/20/24 10:17 06/20/24 10:52 Temperature 97.8 F Pulse Rate 83 78 72 Respiratory Rate 12 18 Blood Pressure 128/77 Pulse Oximetry 99 95 Oxygen Delivery Room Air 06/20/24 12:00 06/20/24 14:29 Temperature 98.1 F Pulse Rate 81 Respiratory Rate 16 Blood Pressure 128/77 Pulse Oximetry 99 Oxygen Delivery Room Air Exam Const: General: comfortable and no acute distress Other: , male, nontoxic appearance HENMT: Face/Nose/Sinus: Normal nares present Mouth: Yes moist mucous membranes Eyes: General: appearance normal, both eyes and all related structures Sclera: sclerae normal Pupils: Equal, round and reactive pupils present EOM: EOMs intact bilaterally Resp: Effort & Inspection: normal respiratory effort Auscultation: clear to auscultation bilaterally Cardio: Rate: regular rate Rhythm: regular rhythm Other: + click sound (history of mechanical valve), no murmur or rub GI: Other: Abdomen soft, nondistended, nontender Skin: General skin exam: normal color and no rashes or lesions noted Wounds: no wounds Neuro: Speech: normal speech Motor exam (neuro): 5/5 motor strength present throughout Sensory Exam: normal sensation Other: A&O x4 Extrem: General: normal to inspection Psych: Mental Status: mental status grossly normal Affect: normal affect Other: Good insight and judgment, pleasant H&P: Results Labs Labs: Short CBC 06/20/24 Range/Units 10:20 WBC 9.0 (4.5-10.0) K/mm3 Hgb 15.8 (14.0-18.0) g/dL Hct 45.2 (42.0-52.0) % Plt Count 168 (150-375) k/mm3 [facility] 06/20/24 10:20 Sodium 136 L Potassium 4.1 Chloride 100 Carbon Dioxide 27 BUN 14 Creatinine 0.60 L Glucose 230 H Calcium 9.0 Cardiac Enzymes 06/20/24 06/20/24 Range/Units 10:20 13:24 Troponin I < 0.012 < 0.012 (0.000-0.034) ng/mL Liver Function 06/20/24 Range/Units 10:20 Total Bilirubin 1.0 (0.2-1.3) mg/dL AST 40 (17-59) U/L ALT 36 (6-50) U/L Alkaline Phosphatase 64 (38-126) U/L Albumin 4.2 (3.5-5.1) g/dL Assessment and Plan Assessment and plan (1) Unstable angina: Code(s): I20.0 - Unstable angina Status: Acute Assessment and Plan: - EKG, initial: Electronic atrial/ventricular pacemaker no further interpretation possible. - EKG, repeat (1): No significant changes. - CXR: Clear lungs - Troponin: <0.012 x3 - ASA 324 given and nitro SL prn - cardiology consulted, awaiting recs - continue ASA and statin daily. Continue warfarin. - stress test, previous (2020): No definite ischemia or infarction, EF measured at 51%. - telemetry monitoring (2) Type 2 diabetes mellitus without complication: Qualifiers: Diabetes mellitus retirement insulin use: without retirement use Qualified Code(s): E11.9 - Type 2 diabetes mellitus without complications Code(s): E11.9 - Type 2 diabetes mellitus without complications Status: Acute Assessment and Plan: - hypoglycemia protocol - POC blood glucose ACHS - home medication: Continue glipizide, glyburide. Hold metformin. - correct regimen ordered - high dose TIDWM, based off BMI - A1C 10.8% on 11/11/2023, update (3) HTN (hypertension): Qualifiers: Hypertension type: essential hypertension Qualified Code(s): I10 - Essential (primary) hypertension Code(s): I10 - Essential (primary) hypertension Status: Acute Assessment and Plan: - chronic, currently 128/77 - continue home medications: Metoprolol ER 50 mg daily, losartan 100 mg daily, Imdur 60 mg daily - monitor (4) Obstructive sleep apnea (adult) (pediatric): Code(s): G47.33 - Obstructive sleep apnea (adult) (pediatric) Status: Acute Assessment and Plan: - does not wear a CPAP - apnea link to rescreen, told he didn't need to wear it anymore after a stent placement? Plan Diet: Heart healthy, NPO midnight GI Prophylaxis: Not currently indicated DVT Prophylaxis: Continue warfarin Lines: Peripheral Code Status: full code Quality VTE Prophylaxis VTE prophylaxis: pharmacologic ordered Hospitalist MIPS Advance Care Plan I have confirmed that the patient's Advanced Care Plan is present, code status is documented, or surrogate decision maker is listed in patient medical record.: Yes Medication Reconciliation I have utilized all available resources to obtain, update and review the patients current medications (includes all prescriptions, OTC, herbals, cannabis, and nutritional supplements).: Yes
[2024-06-20 15:47] LABS: Glucose Point of Care 177 mg/dl (65-105)
--- NOTE | 2024-06-20 16:04 | ECG_ITS ---
Test Date: 2024-06-20 16:25:08 Measurements Intervals [place] Rate: 71 P: 229 CA: 179 QRS: -64 QRSD: 208 T: 131 QT: 496 QTc: 540 Interpretive Statements ELECTRONIC ATRIAL PACEMAKER ELECTRONIC VENTRICULAR PACEMAKER BASELINE ARTIFACT- I, II, III, AVR, AVL, AVF, V1-V6 NO FURTHER INTERPRETATION IS POSSIBLE ATYPICAL ECG Compared to ECG 06/20/2024 14:38:27 No significant changes Electronically Signed On 06-20-2024 18:35:51 MANAGER CONTACT by Tacos Yoo D.O.
--- NOTE | 2024-06-20 16:15 | ECG_ITS ---
Test Date: 2024-06-20 16:26:51 Measurements Intervals [place] Rate: 70 P: 232 GA: 178 QRS: -64 QRSD: 211 T: 125 QT: 499 QTc: 540 Interpretive Statements ELECTRONIC ATRIAL PACEMAKER ELECTRONIC VENTRICULAR PACEMAKER BASELINE ARTIFACT- I, III, AVR, AVL, AVF NO FURTHER INTERPRETATION IS POSSIBLE ATYPICAL ECG Compared to ECG 06/20/2024 16:25:08 No significant changes Electronically Signed On 06-20-2024 18:36:49 SENIOR QUALITY ASSURANCE ENGINEER by Tacos Yoo D.O.
[2024-06-20 16:44] LABS: Troponin I < 0.012 ng/mL (0.000-0.034)
--- NOTE | 2024-06-20 17:12 | ADMGEN ---
This patient, Mal Solorzano, was admitted to IMU Room 211-01 at 1533. Patient/family oriented to hospital policies and general routines including ID bracelet, bed and alarms, visiting hours, pain management, procedures, bathroom and other care routines, personal items, smoking policy, room service/diet, and visiting hours. Information on how to activate the Rapid Response Team has been discussed. Patient/Family are encouraged to report perceived risks to care and to ask questions if they do not understand what they are told or what they should do.
[2024-06-20] MEDS: ACETAMINOPHEN 325 MG TABLET 650 MG PO (18:06)
--- NOTE | 2024-06-20 18:47 | PC.NURSE ---
Left VM with Micaela to clarify warfarin dose. Waiting for a call back.
[2024-06-20 20:34] LABS: Glucose Point of Care 225 mg/dl (65-105)
--- NOTE | 2024-06-20 23:41 | PCRCNOTE ---
Pt does not want apnea link, says he would not wear a CPAP anyway and insurance will not pay fot it
[2024-06-21] VITALS (18 sets, daily range): BP systolic 132–152; BP diastolic 62–75; PULSE 7–85; RESP 18–20; TEMP 36.4–37.1; O2SAT 93–98
[2024-06-21 05:29] LABS: Basophils Percent Auto 0.5 % (0.2-1.2); Eosinophils Absolute Auto 0.1 K/mm3 (0-0.3); Eosinophils Percent Auto 2.4 % (0-4.4); Hematocrit 45.2 % (42.0-52.0); Hemoglobin 15.5 g/dL (14.0-18.0); Immature Granulocyte Absolute 0.01 K/mm3 (0.00-0.031); Immature Granulocyte Percent A 0.2 % (0-0.5); Lymphocytes Absolute Auto 1.75 K/mm3 (0.9-3.2); Lymphocytes Percent Auto 29.7 % (18.3-44.2); Mean Corpuscular HGB Conc 34.3 g/dl (32-36); Mean Corpuscular Hemoglobin 29.5 pg (26-34); Mean Corpuscular Volume 86.1 fl (80-100); Mean Platelet Volume 10.3 fl (7.4-10.4); Monocytes Absolute Auto 0.6 K/mm3 (0.1-0.6); Neutrophils Absolute Auto 3.4 K/mm3 (1.3-6.7); Neutrophils Percent Auto 57.2 % (45.5-73.1); Platelet Count Result 150 k/mm3 (150-375); Red Blood Count 5.25 M/mm3 (4.6-6.20); Red Cell Distribution Width 13.7 % (11.5-14.5); White Blood Count 5.9 K/mm3 (4.5-10.0)
[2024-06-21 05:35] LABS: Hemoglobin A1C 9.8 % (<5.7)
[2024-06-21 05:41] LABS: Alanine Aminotransferase 32 U/L (6-50); Albumin Level 3.7 g/dL (3.5-5.1); Alkaline Phosphatase 56 U/L (38-126); Anion Gap 5 mmol/L (4-12); Aspartate Amino Transferase 32 U/L (17-59); Bilirubin,Total 0.8 mg/dL (0.2-1.3); Blood Urea Nitrogen 12 mg/dL (9-20); Calcium 8.6 mg/dL (8.4-10.2); Carbon Dioxide 29 mmol/L (22-30); Chloride 100 mmol/L (98-107); Estimated CRCL calculation 113 ml/min; Estimated Glomerular Filt Rate > 60; Glucose 205 mg/dL (65-110); Potassium 3.8 mmol/L (3.4-5.0); Sodium 134 mmol/L (137-145)
[2024-06-21 05:44] LABS: INR 4.2; Prothrombin Time 41.1 Seconds (11.1-14.7)
[2024-06-21 07:52] LABS: Glucose Point of Care 188 mg/dl (65-105)
[2024-06-21] MEDS: ASPIRIN 81 MG ENTERIC TABLET PO (08:31)
[2024-06-21] MEDS: ISOSORBIDE MONONITRATE 60 MG TAB.ER.24H PO (08:31)
[2024-06-21] MEDS: LOSARTAN POTASSIUM 100 MG TABLET PO (08:31)
[2024-06-21] MEDS: ROSUVASTATIN 10 MG TABLET PO (08:31)
[2024-06-21] MEDS: DONEPEZIL HCL 10 MG TABLET PO (08:31)
[2024-06-21] MEDS: INSULIN ASPART (*BKC) 100 UNITS/ML SUB-Q ×2 (11:57→17:13)
[2024-06-21] MEDS: glipiZIDE 5 MG TABLET PO (11:58)
[2024-06-21] MEDS: METOPROLOL SUCCINATE EXT REL 50 MG TABCR PO (11:58)
[2024-06-21 12:10] LABS: Glucose Point of Care 229 mg/dl (65-105)
--- NOTE | 2024-06-21 12:16 | PM.CNCAR ---
Assessment and Plan Assessment and plan (1) Unstable angina: Code(s): I20.0 - Unstable angina Status: Acute (2) HTN (hypertension): Qualifiers: Hypertension type: essential hypertension Qualified Code(s): I10 - Essential (primary) hypertension Code(s): I10 - Essential (primary) hypertension Status: Acute (3) H/O mechanical aortic valve replacement: Code(s): Z95.2 - Presence of prosthetic heart valve Status: Acute Plan 63-year-old man with mechanical aortic valve, CAD status post PCI, permanent pacemaker, diabetes, hypertension, and hyperlipidemia presented to the hospital with chest pain. Chest pain concerning for unstable angina -troponins have been negative -INR is supratherapeutic so would hold off on anticoagulation at this time -continue his Imdur 60 mg and Toprol 50 mg p.o. daily -continue aspirin 81 mg and rosuvastatin 10 mg every evening -recommend catheterization to redefine coronary anatomy however patient would like us to discuss with his primary trimmer sawyer Dr. Rodrigues Mechanical aortic valve -INR is currently supratherapeutic and would continue holding for now -appears to be normal functioning valve on physical exam; however would obtain a transthoracic echocardiogram to evaluate mechanical valve Hypertension -blood pressure is currently above goal which should be less than 140 -continue losartan 100 mg p.o. daily -will consider increasing his Imdur dosage after cardiac catheterization Hyperlipidemia -continue rosuvastatin 10 mg every evening History of Present Illness History of Present Illness Consult date/time: 06/21/24 12:16 Requesting physician: Micaela Mcwilliams APRN Consult reason: chest pain Reason For Visit: Unstable Angina Narrative: 63-year-old man with mechanical aortic valve, CAD status post PCI, permanent pacemaker, diabetes, hypertension, and hyperlipidemia presented to the hospital with chest pain. Yesterday morning he was working on his car around 6:00 a.m. when he started to have chest pain. He went inside his house and sat on his couch and the pain continues onwards associated with nausea and diaphoresis. He describes chest pain as gripping and pressure-like and would come at intervals of 3-5 minutes. He has been going through a recent divorce and has many stressors in his life at this moment. However he has not noticed any decline in his functional status over the past few months. Denies any shortness of breath or syncopal episodes. No recent lower extremity swelling. Cardiologists: Dr. Rodrigues Functional status: Able to carry out all physical activities at home as well as outside of his house including walking to grocery store Review of Systems Review of Systems: All systems reviewed & are unremarkable except as noted in HPI and below PMFSH Past Medical History Medical History (Updated 06/21/24 @ 12:28 by Lukas Samuels MD) Chronic anticoagulation Coronary artery disease involving [place] coronary artery Erectile dysfunction Heart disease History of kidney stones HLD (hyperlipidemia) HTN (hypertension) Incarcerated umbilical hernia s/p repair Presence of prosthetic heart valve Tobacco abuse Type 2 diabetes mellitus without complication Surgical History Surgical History (Updated 06/21/24 @ 12:28 by Lukas Samuels MD) H/O umbilical hernia repair Repair of incarcerated umbilical hernia with mesh 12/18. History of heart surgery History of repair of right rotator cuff Family History Family History Sibling Hypertension Family history of malignant neoplasm of kidney Father Family history of Parkinson's disease, Onset Age: 80 Family history of dementia, Onset Age: 80 Mother Tuberculosis Other Diabetes mellitus Social History Social History Smoking status: Current some day smoker Tobacco type: pipe and cigars Additional smoking assessment comments: PT smokes marijuana from a pipe a couple times a week Alcohol intake: current Drinks per week: 3 Alcohol use details: Few times a month Substance use: current Substance use type: marijuana Do You Feel Safe in your Home?: Yes Lack of Transportation: No Lack of Food: Sometimes True Current Housing: I Have Housing Concerned About Future Housing: YES Difficulty Paying Gas/Electric Bills: No Difficulty Paying for Meds: No Currently Unemployed: No Education: High School Diploma/GED Difficulty w/ Childcare or Family Care: No Living arrangements: with family Additional living arrangements comments: Occupation/Education: other Additional occupation/education comments: disabled Gender identity (if verbalized by the patient): Male Spiritual care concerns: No Meds Home Medications and Allergies Home Medications Medication Instructions Recorded Confirmed Type isosorbide mononitrate 60 mg 60 mg PO QAM 12/08/21 06/20/24 History tablet,extended release 24 hr aspirin 81 mg tablet,delayed 81 mg PO DAILY 12/14/21 06/20/24 History release warfarin 4 mg tablet See Rx Instructions .Route 02/03/24 06/20/24 Rx .COMPLEX #48 tabs losartan 100 mg tablet 100 mg PO DAILY #90 tabs 05/30/24 06/20/24 Rx donepezil 10 mg tablet (Aricept) 10 mg PO DAILY #90 tabs 06/04/24 06/20/24 Rx metformin 1,000 mg tablet 1,000 mg PO BID 06/20/24 06/20/24 History metoprolol succinate 50 mg 50 mg PO DAILY 06/20/24 06/20/24 History tablet,extended release 24 hr rosuvastatin 10 mg tablet 10 mg PO DAILY 06/20/24 06/20/24 History warfarin 6 mg tablet 6 mg PO 3XW 06/20/24 06/20/24 History glipizide 5 mg tablet 5 mg PO DAILY 06/21/24 06/21/24 History Allergies Allergy/AdvReac Type Severity Reaction Status Date / Time hydromorphone AdvReac Mild Nausea and Verified 06/20/24 10:16 Vomiting Vital Signs Vital Signs - 24 hr 06/20/24 14:29 06/20/24 16:05 06/20/24 16:00 Temperature 36.7 C 36.6 C Pulse Rate 81 77 Respiratory Rate 16 20 Blood Pressure 128/77 131/77 Pulse Oximetry 99 95 Oxygen Delivery Room Air 06/20/24 16:00 06/20/24 18:00 06/20/24 20:08 Temperature 36.7 C Pulse Rate 72 72 77 Respiratory Rate 20 Blood Pressure 130/63 Pulse Oximetry 96 Oxygen Delivery 06/20/24 20:00 06/20/24 20:00 06/20/24 21:32 Temperature Pulse Rate 72 72 74 Respiratory Rate 20 Blood Pressure Pulse Oximetry 96 Oxygen Delivery Room Air 06/21/24 00:09 06/21/24 00:00 06/21/24 00:00 Temperature 37.1 C Pulse Rate 76 77 77 Respiratory Rate 20 20 Blood Pressure 143/62 H Pulse Oximetry 96 96 Oxygen Delivery Room Air 06/21/24 05:50 06/21/24 02:00 06/21/24 04:00 Temperature 37.1 C Pulse Rate 72 70 70 Respiratory Rate 20 20 Blood Pressure 146/69 H Pulse Oximetry 93 93 Oxygen Delivery Room Air 06/21/24 04:00 06/21/24 06:00 06/21/24 08:16 Temperature 36.4 C Pulse Rate 70 74 76 Respiratory Rate 20 Blood Pressure 144/69 H Pulse Oximetry 98 Oxygen Delivery 06/21/24 08:00 06/21/24 11:29 06/21/24 11:58 Temperature 36.8 C Pulse Rate 74 85 Respiratory Rate 20 Blood Pressure 152/75 H Pulse Oximetry 95 Oxygen Delivery Room Air Exam Const: General: comfortable HENMT: Mouth: Yes moist mucous membranes Eyes: EOM: EOMs intact bilaterally Neck: Neck: no JVD Resp: Effort & Inspection: normal respiratory effort Auscultation: clear to auscultation bilaterally Cardio: Rate: regular rate Rhythm: regular rhythm Other: Mechanical S2 heard GI: GI Palp: Yes Soft to palpation Neuro: Speech: normal speech Extrem: General: normal to inspection Results Labs and Meds 06/21/24 04:38 06/21/24 04:38 Lab results: Cardiac Enzymes 06/20/24 06/20/24 06/21/24 Range/Units 13:24 16:16 04:38 AST 32 (17-59) U/L Troponin I < 0.012 < 0.012 (0.000-0.034) ng/mL Coagulation 06/21/24 Range/Units 04:38 PT 41.1 H (11.1-14.7) Seconds CBC 06/21/24 Range/Units 04:38 WBC 5.9 (4.5-10.0) K/mm3 RBC 5.25 (4.6-6.20) M/mm3 Hgb 15.5 (14.0-18.0) g/dL Hct 45.2 (42.0-52.0) % Plt Count 150 (150-375) k/mm3 Lymph # (Auto) 1.75 (0.9-3.2) K/mm3 [place] # (Auto) 0.6 (0.1-0.6) K/mm3 Eos # (Auto) 0.1 (0-0.3) K/mm3 Baso # (Auto) 0.0 (0.0-0.1) K/mm3 Comprehensive Metabolic Panel 06/21/24 Range/Units 04:38 Sodium 134 L (137-145) mmol/L Potassium 3.8 (3.4-5.0) mmol/L Chloride 100 (98-107) mmol/L Carbon Dioxide 29 (22-30) mmol/L BUN 12 (9-20) mg/dL Creatinine 0.70 (0.7-1.3) mg/dL Glucose 205 H (65-110) mg/dL Calcium 8.6 (8.4-10.2) mg/dL AST 32 (17-59) U/L ALT 32 (6-50) U/L Alkaline Phosphatase 56 (38-126) U/L Total Protein 7.0 (6.3-8.2) g/dL Albumin 3.7 (3.5-5.1) g/dL Intake and Output 06/20/24 06/21/24 06/21/24 23:59 07:59 15:59 Intake Total 240 350 Output Total 900 Balance 240 -550 Intake: Oral 240 350 Output: Urine 900 Other: # Unmeasured Voids 1 Patient Weight 06/21/24 23:59 Weight 112.2 kg
--- NOTE | 2024-06-21 15:38 | P.PNIM_ITS ---
Progress Note: A&P Assessment and Plan (1) Unstable angina: Code(s): I20.0 - Unstable angina Status: Acute Assessment and Plan: Patient presents with chest pain. Troponin negative x3. EKG showing electronic atrial/ventricular pacemaker. CXR clear. ASA 324 given and nitro SL prn Cardiology consulted Continue ASA, Toprol, Imdur and statin. Hold warfarin given elevated INR. 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 The patient's blood glucose was reviewed on 06/21 Glucose remains poorly controlled. Was thought to be on glipizide, glyburide and metformin. Glyburide stopped but apparently he is not on this med. Continue AccuCheks covering with sliding scale. Hypoglycemia protocol available as needed. Continue to monitor. No Lantus tonight since will be NPO after midnight but start Lantus tomorrow night to improve glycemic control. (3) HTN (hypertension): Qualifiers: Hypertension type: essential hypertension Qualified Code(s): I10 - Essential (primary) hypertension Code(s): I10 - Essential (primary) hypertension Status: Acute Assessment and Plan: Patient's blood pressure was reviewed on 06/21 Blood pressure remains well controlled. Will continue to monitor (4) Obstructive sleep apnea (adult) (pediatric): Code(s): G47.33 - Obstructive sleep apnea (adult) (pediatric) Status: Acute Assessment and Plan: Patient noncompliant with CPAP (5) H/O mechanical aortic valve replacement: Code(s): Z95.2 - Presence of prosthetic heart valve Status: Acute Assessment and Plan: Patient with mechanical Ao valve replacement after what sounds like endocarditis. Seen on CXR. He is on Coumadin but INR 4.2 so will hold for tonight. Daily INR Plan DVT Prophylaxis: Continue warfarin Code Status: full code Subjective Date/time seen: 06/21/24 15:38 Interval history: 63yo male with DM, CAD, HTN, PM and mechanical Ao valve on Coumadin here for natasha [facility] pain. Patient feels well. Has low grade chest pain 2/10 that worsens slightly with movement. Described as gripping left sided CP with n/v. SOB or radiation. Similar to pain he has had before associated with coronary disease. Has been under alot of stress lately. Checks glucose 2x/week at home. CP not pleuritic Exam Narrative: AF 97.7 132/72 73 18 98%ra Gen - NARD Chest - CTA bilaterally, nml RR. No palpable chest wall pain. No dermatomal rash noted. CV - RRR S1/S2 with mechanical S2. Tels showing paced rhythm with PVCs Abd - Soft, NT/ND, Positive BS Ext - slight pedal edema to the left leg Psych - Nml mood and affect Skin - Warm and dry Objective Data Vital Signs Vital Signs: Vital Signs - 24 hr 06/20/24 16:05 06/20/24 16:00 06/20/24 16:00 Temperature 97.8 F Pulse Rate 77 72 Respiratory Rate 20 Blood Pressure 131/77 Pulse Oximetry 95 Oxygen Delivery Room Air 06/20/24 18:00 06/20/24 20:08 06/20/24 20:00 Temperature 98.0 F Pulse Rate 72 77 72 Respiratory Rate 20 20 Blood Pressure 130/63 Pulse Oximetry 96 96 Oxygen Delivery Room Air 06/20/24 20:00 06/20/24 21:32 06/21/24 00:09 Temperature 98.8 F Pulse Rate 72 74 76 Respiratory Rate 20 Blood Pressure 143/62 H Pulse Oximetry 96 Oxygen Delivery 06/21/24 00:00 06/21/24 00:00 06/21/24 05:50 Temperature 98.7 F Pulse Rate 77 77 72 Respiratory Rate 20 20 Blood Pressure 146/69 H Pulse Oximetry 96 93 Oxygen Delivery Room Air 06/21/24 02:00 06/21/24 04:00 06/21/24 04:00 Temperature Pulse Rate 70 70 70 Respiratory Rate 20 Blood Pressure Pulse Oximetry 93 Oxygen Delivery Room Air 06/21/24 06:00 06/21/24 08:16 06/21/24 08:00 Temperature 97.6 F Pulse Rate 74 76 Respiratory Rate 20 Blood Pressure 144/69 H Pulse Oximetry 98 Oxygen Delivery Room Air 06/21/24 11:29 06/21/24 11:58 06/21/24 12:00 Temperature 98.3 F Pulse Rate 74 85 Respiratory Rate 20 Blood Pressure 152/75 H Pulse Oximetry 95 Oxygen Delivery Room Air 06/21/24 08:00 06/21/24 10:00 06/21/24 12:00 Temperature Pulse Rate 70 76 72 Respiratory Rate Blood Pressure Pulse Oximetry Oxygen Delivery 06/21/24 15:34 Temperature 97.7 F Pulse Rate 7 L Respiratory Rate 18 Blood Pressure 132/72 Pulse Oximetry 98 Oxygen Delivery Intake/Output Intake/Output: Intake & Output 06/18/24 06/19/24 06/20/24 06/21/24 23:59 23:59 23:59 23:59 Intake Total 240 590 Output Total 900 Balance 240 -310 Meds/Results Medications: Active Medications Generic Name Dose Route Start Last Admin Trade Name Freq PRN Reason Stop Dose Admin Acetaminophen 650 mg 06/20/24 16:49 06/20/24 18:06 Acetaminophen 325 Mg Tablet PO 650 mg Q6H PRN Administration Mild Pain (1-3) or Fever Aspirin 81 mg 06/21/24 09:00 06/21/24 08:31 Aspirin 81 Mg Enteric Tablet PO 81 mg DAILY KIERA Administration Dextrose 12.5 gm 06/20/24 14:44 Dextrose 50% 25 Gm/50 Ml Syringe IV PUSH PRN PRN Hypoglycemia Protocol Donepezil HCl 10 mg 06/21/24 09:00 06/21/24 08:31 Donepezil Hcl 10 Mg Tablet PO 10 mg DAILY KIERA Administration Glipizide 5 mg 06/21/24 08:00 06/21/24 11:58 Glipizide 5 Mg Tablet PO 5 mg DAILY@0800 KIERA Administration Glucagon 1 mg 06/20/24 14:44 Glucagon For Inj 1 Mg Vial IM PRN PRN Hypoglycemia Protocol Glucose 15 gm 06/20/24 14:44 Glucose Oral Gel 15 Gm Of Glucse In 37.5 Gm Tube PO PRN PRN Hypoglycemia Protocol Dextrose 1,000 mls @ 100 mls/hr 06/20/24 14:44 Dextrose 5% 1,000 Ml IVPB PRN PRN Hypoglycemia Protocol Insulin Aspart 4 - 8 units 06/20/24 17:00 06/21/24 11:57 Insulin Aspart (*Bkc) 100 Units/Ml SUB-Q 4 units TIDWM KIERA Administration Protocol Isosorbide Mononitrate 60 mg 06/21/24 09:00 06/21/24 08:31 Isosorbide Mononitrate 60 Mg Tab.Er.24h PO 60 mg QAM [facility] Administration Losartan Potassium 100 mg 06/21/24 09:00 06/21/24 08:31 Losartan Potassium 100 Mg Tablet PO 100 mg DAILY [facility] Administration Metoprolol Succinate 50 mg 06/21/24 09:00 06/21/24 11:58 Metoprolol Succinate Ext Rel 50 Mg Tabcr PO 50 mg DAILY [facility] Administration Nitroglycerin 0.4 mg 06/20/24 17:40 Nitroglycerin Sl 0.4 Mg Tablet SUBLINGUAL Q5MIN PRN Chest Pain Ondansetron HCl 4 mg 06/20/24 14:08 Ondansetron Inj 4 Mg/2 Ml Vial IV PUSH Q4H PRN Nausea Rosuvastatin Calcium 10 mg 06/21/24 09:00 06/21/24 08:31 Rosuvastatin 10 Mg Tablet PO 10 mg DAILY [facility] Administration Warfarin Sodium 4 mg 06/21/24 17:00 Warfarin (*Pbkc) 4 Mg Tablet PO SuTuThSa@1700 [facility] Warfarin Sodium 6 mg 06/22/24 17:00 Warfarin (*Pbkc) 3 Mg Tablet PO MoWeFr@1700 [facility] Radiology Results: ITS Impressions Chest X-Ray 06/20/24 10:49 Impression: Clear lungs. Labs Labs: Laboratory Results - last 24 hr 06/20/24 06/20/24 06/20/24 15:43 16:16 20:24 WBC RBC Hgb Hct MCV MCH MCHC RDW Plt Count MPV Immature Gran % (Auto) Neut % (Auto) Lymph % (Auto) [place] % (Auto) Eos % (Auto) Baso % (Auto) Lymph # (Auto) [place] # (Auto) Eos # (Auto) Baso # (Auto) Abs Immat Gran (auto) Absolute Neuts (auto) Absolute Nucleated RBC Nucleated RBC % PT INR Sodium Potassium Chloride Carbon Dioxide Anion Gap BUN Creatinine Estim Creat Clear Calc Estimated GFR Glucose POC Capillary Glucose 177 H 225 H Hemoglobin A1c Calcium Total Bilirubin AST ALT Alkaline Phosphatase Troponin I < 0.012 Total Protein Albumin 06/21/24 06/21/24 06/21/24 04:38 07:48 11:28 WBC 5.9 RBC 5.25 Hgb 15.5 Hct 45.2 MCV 86.1 MCH 29.5 MCHC 34.3 RDW 13.7 Plt Count 150 MPV 10.3 Immature Gran % (Auto) 0.2 Neut % (Auto) 57.2 Lymph % (Auto) 29.7 [place] % (Auto) 10.0 H Eos % (Auto) 2.4 Baso % (Auto) 0.5 Lymph # (Auto) 1.75 [place] # (Auto) 0.6 Eos # (Auto) 0.1 Baso # (Auto) 0.0 Abs Immat Gran (auto) 0.01 Absolute Neuts (auto) 3.4 Absolute Nucleated RBC 0.000 Nucleated RBC % 0.0 PT 41.1 H INR 4.2 Sodium 134 L Potassium 3.8 Chloride 100 Carbon Dioxide 29 Anion Gap 5 BUN 12 Creatinine 0.70 Estim Creat Clear Calc 113 Estimated GFR > 60 Glucose 205 H POC Capillary Glucose 188 H 229 H Hemoglobin A1c 9.8 H Calcium 8.6 Total Bilirubin 0.8 AST 32 ALT 32 Alkaline Phosphatase 56 Troponin I Total Protein 7.0 Albumin 3.7
[2024-06-21 15:40] LABS: Glucose Point of Care 218 mg/dl (65-105)
[2024-06-21 20:17] LABS: Glucose Point of Care 218 mg/dl (65-105)
[2024-06-22] VITALS (14 sets, daily range): BP systolic 137–153; BP diastolic 62–86; PULSE 70–82; RESP 20; TEMP 36.5–36.6; O2SAT 98–100
--- NOTE | 2024-06-22 | ECHO_ITS ---
Patient Info Name: Mal Solorzano Age: 63 years : 1960 Gender: Male Ht: 69 in Wt: 252 lbs BSA: 2.41 m2 HR: 83 bpm BP: 143 / 77 mmHg Heart Rhythm: Sinus Rhythm Technical Quality: Fair Exam Date: 06/22/2024 4:07 PM Exam Location: Echo Lab Patient Status: Inpatient Admit Date: 06/20/2024 Staff Ordering Physician: Fidelina Ward MD (barber/ronni) Director Workforce Management: Maria Esther Miguel RDCS Attending Provider: Adalid Droado MD Referring Physician: Ed SOSA; Exam Type: CA echo dop color flow w con Study Info Indications - MECHANICAL AORTIC VALVE Complete two-dimensional, color flow and Doppler transthoracic echocardiogram is performed with contrast to opacify the left ventricle and to improve the deliniation of the left ventricle endocardial borders. Summary 1. Left ventricular chamber dimension is normal. 2. Left ventricular systolic function is normal, estimated at 65-70%. 3. There is mildly increased left ventricular wall thickness. 4. The left ventricular diastolic function is grade I diastolic dysfunction. 5. Right ventricular chamber dimension is normal. 6. Right ventricular systolic function is normal. 7. Linear artifact in right ventricle suggestive of catheter(s), pacemaker lead(s), or ICD lead(s). 8. There is no aortic valve stenosis. 9. There is no aortic valve regurgitation. 10. The mitral valve has normal leaflets. Left Ventricle Left ventricular chamber dimension is normal. Left ventricular systolic function is normal, estimated at 65-70%. There is mildly increased left ventricular wall thickness. Left ventricular septal wall motion is normal. The left ventricular diastolic function is grade I diastolic dysfunction. Right Ventricle Right ventricular chamber dimension is normal. Right ventricular systolic function is normal. Linear artifact in right ventricle suggestive of catheter(s), pacemaker lead(s), or ICD lead(s). Left Atria Left atrial chamber dimension is normal. Right Atria Right atrial chamber dimension is normal. Aortic Valve The aortic valve is trileaflet. There is no aortic valve sclerosis. There is no aortic valve stenosis. There is no aortic valve regurgitation. Pulmonic Valve The pulmonic valve is not well visualized. Mitral Valve The mitral valve has normal leaflets. There is no mitral valve stenosis. There is no mitral valve regurgitation. Tricuspid Valve The tricuspid valve leaflets are normal. There is no significant tricuspid valve stenosis. There is no tricuspid valve regurgitation. Pericardium/Pleural The pericardium appears normal. There is no pericardial effusion. Inferior Vena Cava Inferior vena cava is not well visualized. Aorta The aortic root size at the sinus of Valsalva is normal. The prox ascending aorta size is normal. Left Ventricular Outflow Tract Name Value Normal LVOT 2D LVOT Diameter 2.28 cm LVOT Doppler LVOT Peak Gradient 5 mmHg LVOT Mean Gradient 3 mmHg LVOT VTI 23.29 cm LVOT VTI/AV VTI Ratio 0.48 LVOT Stroke Volume 95.38 ml LVOT CO 5.68 l/min LVOT CI 2.36 L/min/m2 Pulmonic Valve Name Value Normal PV Doppler PV Peak Gradient 4 mmHg Mitral Valve Name Value Normal MV Doppler MV Decel Glenn 280.14 cm/s2 MV PHT 0 s MV Area (PHT) 3.17 cm2 4.00-5.00 MV Diastolic Function MV E Peak Velocity 67.08 cm/s MV A Peak Velocity 86.94 cm/s MV E/A 0.77 MV Decel Time 0 s MV Annular TDI MV E/e' (Septal) 16.27 <=8.00 MV E/e' (Lateral) 10.35 <=8.00 MV E/e' (Average) 13.31 Tricuspid Valve Name Value Normal TV Regurgitation Doppler TR Peak Velocity 208.04 cm/s TR Peak Gradient 17 mmHg Estimated PAP/RSVP RA Pressure 10 mmHg <=5 PA Systolic Pressure 27 mmHg <36 RV Systolic Pressure 27 mmHg <36 Aortic Valve Name Value Normal AV Doppler AV Peak Velocity 284.51 cm/s AV Peak Gradient 29 mmHg AV Mean Gradient 18 mmHg AV VTI 48.25 cm AV Area (Cont Eq VTI) 1.98 cm2 >=3.00 AV Area (Cont Eq Jayden) 1.73 cm2 AV Regurgitation 2D LVOT Area 4.10 cm2 Ventricles Name Value Normal LV Dimensions 2D/MM IVS Diastolic Thickness (2D) 1.41 cm 0.60-1.00 LVID Diastole (2D) 5.20 cm 4.20-5.80 LVIW Diastolic Thickness (2D) 1.29 cm 0.60-1.00 LVID Systole (2D) 3.87 cm 2.50-4.00 LVOT Diameter 2.28 cm LV Mass (2D Cubed) 294.67 g 88.00-224.00 LV Mass Index (2D Cubed) 0.01 g/cm2 0.00-0.01 Relative Wall Thickness (2D) 0.50 LV Fractional Shortening/Ejection Fraction 2D/MM LV Fractional Shortening (2D) 26 % 25-43 LV EF (2D Teicholz) 50 % 52-72 LV Diastolic Volume (4C MOD) 188.36 ml LV EF (4C MOD) 67 % LV Diastolic Volume (2C MOD) 126.07 ml LV EF (2C MOD) 55 % LV Diastolic Volume (BP MOD) 155.58 ml 62.00-150.00 LV Diastolic Volume Index (BP MOD) 0.06 l/m2 0.03-0.07 LV Systolic Volume (BP MOD) 60.08 ml 21.00-61.00 LV Systolic Volume Index (BP MOD) 0.02 l/m2 0.01-0.03 LV EF (BP MOD) 61 % 52-72 LV Diastolic Length (4C) 9.28 cm LV Systolic Length (4C) 7.31 cm LV Stroke Volume (4C MOD) 126.12 ml Atria Name Value Normal LA Dimensions LA Volume (4C A-L) 28.77 ml LA Volume (BP A-L) 37.52 ml RA Dimensions RA Area (4C) 11.96 cm2 <=18.00 Report Signatures
[2024-06-22 05:16] LABS: INR 2.4; Prothrombin Time 27.2 Seconds (11.1-14.7)
[2024-06-22 05:21] LABS: Anion Gap 9 mmol/L (4-12); Blood Urea Nitrogen 12 mg/dL (9-20); Calcium 8.7 mg/dL (8.4-10.2); Carbon Dioxide 27 mmol/L (22-30); Chloride 100 mmol/L (98-107); Estimated CRCL calculation 113 ml/min; Estimated Glomerular Filt Rate > 60; Glucose 203 mg/dL (65-110); Potassium 3.8 mmol/L (3.4-5.0); Sodium 136 mmol/L (137-145)
[2024-06-22 08:10] LABS: Glucose Point of Care 222 mg/dl (65-105)
[2024-06-22] MEDS: INSULIN ASPART (*BKC) 100 UNITS/ML SUB-Q ×2 (09:00→16:30)
[2024-06-22] MEDS: ISOSORBIDE MONONITRATE 60 MG TAB.ER.24H PO (09:00)
[2024-06-22] MEDS: METOPROLOL SUCCINATE EXT REL 50 MG TABCR PO (09:00)
[2024-06-22] MEDS: ASPIRIN 81 MG ENTERIC TABLET PO (09:00)
[2024-06-22] MEDS: ROSUVASTATIN 10 MG TABLET PO (09:01)
[2024-06-22] MEDS: LOSARTAN POTASSIUM 100 MG TABLET PO (09:01)
[2024-06-22] MEDS: DONEPEZIL HCL 10 MG TABLET PO (09:01)
--- NOTE | 2024-06-22 09:11 | EST_ITS ---
Patient Info Name: Mal Solorzano Age: 63 years : 1960 Gender: Male Ht: 69 in Wt: 247 lbs BSA: 2.38 m2 HR: 73 bpm BP: 149 / 81 mmHg Exam Date: 06/22/2024 12:19 PM Exam Location: Echo Lab Patient Status: Inpatient Admit Date: 06/20/2024 Staff Ordering Physician: Fidelina Ward MD Attending Provider: Adalid Dorado MD Exercise Technologist: Chery Ibrahim RDCS Nurse: Cindy Lerma APN Exam Type: CA stress jo w NM Study Info A regadenoson stress test was performed. Summary 1. Non-diagnostic stress ECG due to electronic pacing. 2. Occasional PVCs. 3. Please correlate with nuclear medicine images, reported separately. 4. Stress test supervised by Cindy Lerma NP. Stress test interpreted by Fidelina Ward MD. Protocol: Lexiscan Stress ECG Details Stage: REST Duration (min): 1 min : 29 sec HR (bpm): 73 SBP (mmHg): 149 DBP (mmHg): 81 Stage: REST Duration (min): 5 min : 38 sec HR (bpm): 70 SBP (mmHg): 149 DBP (mmHg): 81 Stage: STAGE 1 Duration (min): 1 min : 0 sec HR (bpm): 70 SBP (mmHg): 117 DBP (mmHg): 83 Stage: RECOVERY Duration (min): 1 min : 0 sec HR (bpm): 70 SBP (mmHg): 117 DBP (mmHg): 83 Stage: RECOVERY Duration (min): 2 min : 0 sec HR (bpm): 70 SBP (mmHg): 117 DBP (mmHg): 83 Stage: RECOVERY Duration (min): 3 min : 0 sec HR (bpm): 75 SBP (mmHg): 136 DBP (mmHg): 85 Stage: RECOVERY Duration (min): 4 min : 0 sec HR (bpm): 74 SBP (mmHg): 136 DBP (mmHg): 85 Stage: RECOVERY Duration (min): 4 min : 51 sec HR (bpm): 73 SBP (mmHg): 136 DBP (mmHg): 85 Rest HR: 70 bpm Peak HR: 83 bpm Rest Sys BP: 149 mmHg Peak Sys BP: 136 mmHg Max Pred HR: 155 bpm % Max Pred HR: 54 % Target HR: 132 bpm Max RPP: 11,288 bpm*mmHg Total Time: 1 min : 0 sec Rest Banks BP: 81 mmHg Peak Banks BP: 85 mmHg Total Dose: 0.4 mg Resting ECG Ventricular paced rhythm. Stress ECG Non-diagnostic stress ECG due to electronic pacing. Arrhythmias Occasional PVCs. Report Signatures
--- NOTE | 2024-06-22 11:37 | PM.PNCARD ---
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 1. Chest pain concerning for angina 2. Coronary artery disease s/p prior PCI -Troponins have been negative -Continue ASA 81mg once daily and Rosuvastatin 10mg daily. -Continue Imdur 60 mg and Toprol 50 mg PO Daily. Can uptitrate antianginal therapy as needed. -Discussed cardiac catheterization with the patient to redefine his coronary anatomy, however, his INR is supratherapeutic, and therefore, would not be able to proceed with cardiac catheterization today. Since he has been chest pain free, troponins negative, he does not need emergent/urgent cardiac catheterization. Discussed with the patient that cath would then most likely be on Tuesday, however, he is not sure if he wants to stay in the hospital over the weekend. Discussed alternative strategies. Will proceed with nuclear stress test today. If nuclear stress test is without significant abnormality, then he could be discharged home with plans for outpatient cardiac catheterization. 3. Mechanical aortic valve -INR is currently supratherapeutic and would continue holding for now. Goal INR for a mechanical aortic valve is 2-3. -Appears to be normal functioning valve on physical exam; however will obtain a transthoracic echocardiogram to evaluate mechanical valve -Of note, patient does not check his INRs at home. States he does not do the home monitoring system as he has had issues with it. Goes to the lab to get INR checks about every 6 months. He isn't even sure if he is taking his Warfarin dosing correctly at home (may be mixing up the dosing). Our cardiology office has not been managing his Warfarin as it was previously managed through his PCP. Discussed with patient that being on Warfarin requires frequent INR checks and he cannot get them checked only once every six months. 4. Hypertension -Continue Losartan 5. Hyperlipidemia -Continue Rosuvastatin 10 mg every evening 6. Diabetes mellitus -Unclear if he has actually been taking his diabetic meds at home. Management as per Hospitalist. Recommendations and plan discussed with Hospitalist. Subjective Date/time seen: 06/22/24 11:37 Interval history: Reason for visit: Chest pain HPI: 63-year-old man with mechanical aortic valve, CAD status post PCI, permanent pacemaker, diabetes, hypertension, and hyperlipidemia presented to the hospital with chest pain. Yesterday morning he was working on his car around 6:00 a.m. when he started to have chest pain. He went inside his house and sat on his couch and the pain continues onwards associated with nausea and diaphoresis. He describes chest pain as gripping and pressure-like and would come at intervals of 3-5 minutes. He has been going through a recent divorce and has many stressors in his life at this moment. However he has not noticed any decline in his functional status over the past few months. Denies any shortness of breath or syncopal episodes. No recent lower extremity swelling. Cardiologists: Dr. Rodrigues. Functional status: Able to carry out all physical activities at home as well as outside of his house including walking to grocery store Date of service 06/22: He has not had recurrent chest pain since the episode that lead him to the ER. He denies any other episodes of chest pain otherwise prior to admission. Review of Systems Review of Systems: All systems reviewed & are unremarkable except as noted in HPI and below (HPI) Exam Const: General: comfortable and no acute distress HENMT: Mouth: Yes moist mucous membranes Eyes: General: appearance normal, both eyes and all related structures Sclera: sclerae normal Resp: Effort & Inspection: normal respiratory effort Cardio: Rate: regular rate Rhythm: regular rhythm Skin: General skin exam: normal color Neuro: Speech: normal speech Psych: Mental Status: mental status grossly normal Affect: normal affect Objective Data Vital Signs Vital Signs: Vital Signs - 24 hr 06/21/24 11:58 06/21/24 12:00 06/21/24 12:00 Temperature Pulse Rate 85 72 Respiratory Rate Blood Pressure Pulse Oximetry Oxygen Delivery Room Air 06/21/24 15:34 06/21/24 14:00 06/21/24 16:00 Temperature 36.5 C Pulse Rate 7 L 73 Respiratory Rate 18 Blood Pressure 132/72 Pulse Oximetry 98 Oxygen Delivery Room Air 06/21/24 16:00 06/21/24 18:00 06/21/24 20:00 Temperature 36.6 C Pulse Rate 73 72 70 Respiratory Rate 20 Blood Pressure 134/66 Pulse Oximetry 96 Oxygen Delivery 06/21/24 20:00 06/21/24 20:00 06/21/24 22:00 Temperature Pulse Rate 73 73 76 Respiratory Rate 20 Blood Pressure Pulse Oximetry 96 Oxygen Delivery Room Air 06/22/24 00:00 06/22/24 00:00 06/22/24 00:00 Temperature 36.6 C Pulse Rate 70 70 70 Respiratory Rate 20 20 Blood Pressure 137/62 Pulse Oximetry 100 100 Oxygen Delivery Room Air 06/22/24 01:57 06/22/24 03:47 06/22/24 03:47 Temperature Pulse Rate 74 70 70 Respiratory Rate 20 Blood Pressure Pulse Oximetry 100 Oxygen Delivery Room Air 06/22/24 04:00 06/22/24 05:54 06/22/24 07:28 Temperature 36.6 C 36.6 C Pulse Rate 70 72 75 Respiratory Rate 20 20 Blood Pressure 145/71 H 153/86 H Pulse Oximetry 99 98 Oxygen Delivery 06/22/24 09:00 06/22/24 08:00 06/22/24 10:00 Temperature Pulse Rate 70 82 75 Respiratory Rate Blood Pressure Pulse Oximetry Oxygen Delivery Intake/Output Intake/Output: Intake & Output 06/19/24 06/20/24 06/21/24 06/22/24 23:59 23:59 23:59 23:59 Intake Total 240 1370 400 Output Total 1850 400 Balance 240 -480 0 Meds/Results Medications: Active Medications Generic Name Dose Route Start Last Admin Trade Name Freq PRN Reason Stop Dose Admin Acetaminophen 650 mg 06/20/24 16:49 06/20/24 18:06 Acetaminophen 325 Mg Tablet PO 650 mg Q6H PRN Administration Mild Pain (1-3) or Fever Aspirin 81 mg 06/21/24 09:00 06/22/24 09:00 Aspirin 81 Mg Enteric Tablet PO 81 mg DAILY KIERA Administration Dextrose 12.5 gm 06/20/24 14:44 Dextrose 50% 25 Gm/50 Ml Syringe IV PUSH PRN PRN Hypoglycemia Protocol Donepezil HCl 10 mg 06/21/24 09:00 06/22/24 09:01 Donepezil Hcl 10 Mg Tablet PO 10 mg DAILY KIERA Administration Glipizide 5 mg 06/21/24 08:00 06/21/24 11:58 Glipizide 5 Mg Tablet PO 5 mg DAILY@0800 KIERA Administration Glucagon 1 mg 06/20/24 14:44 Glucagon For Inj 1 Mg Vial IM PRN PRN Hypoglycemia Protocol Glucose 15 gm 06/20/24 14:44 Glucose Oral Gel 15 Gm Of Glucse In 37.5 Gm Tube PO PRN PRN Hypoglycemia Protocol Dextrose 1,000 mls @ 100 mls/hr 06/20/24 14:44 Dextrose 5% 1,000 Ml IVPB PRN PRN Hypoglycemia Protocol Insulin Aspart 4 - 8 units 06/20/24 17:00 06/22/24 09:00 Insulin Aspart (*Bkc) 100 Units/Ml SUB-Q 4 units TIDWM KIERA Administration Protocol Isosorbide Mononitrate 60 mg 06/21/24 09:00 06/22/24 09:00 Isosorbide Mononitrate 60 Mg Tab.Er.24h PO 60 mg QAM KIERA Administration Losartan Potassium 100 mg 06/21/24 09:00 06/22/24 09:01 Losartan Potassium 100 Mg Tablet PO 100 mg DAILY KIERA Administration Metoprolol Succinate 50 mg 06/21/24 09:00 06/22/24 09:00 Metoprolol Succinate Ext Rel 50 Mg Tabcr PO 50 mg DAILY KIERA Administration Nitroglycerin 0.4 mg 06/20/24 17:40 Nitroglycerin Sl 0.4 Mg Tablet SUBLINGUAL Q5MIN PRN Chest Pain Ondansetron HCl 4 mg 06/20/24 14:08 Ondansetron Inj 4 Mg/2 Ml Vial IV PUSH Q4H PRN Nausea Rosuvastatin Calcium 10 mg 06/21/24 09:00 06/22/24 09:01 Rosuvastatin 10 Mg Tablet PO 10 mg DAILY [facility] Administration Warfarin Sodium 4 mg 06/21/24 17:00 Warfarin (*Pbkc) 4 Mg Tablet PO SuTuThSa@1700 [facility] Warfarin Sodium 6 mg 06/22/24 17:00 Warfarin (*Pbkc) 3 Mg Tablet PO MoWeFr@1700 [facility] Radiology Results: ITS Impressions Chest X-Ray 06/20/24 10:49 Impression: Clear lungs. Labs Labs: Laboratory Results - last 24 hr 06/21/24 06/21/24 06/21/24 11:28 15:33 20:08 PT INR Sodium Potassium Chloride Carbon Dioxide Anion Gap BUN Creatinine Estim Creat Clear Calc Estimated GFR Glucose POC Capillary Glucose 229 H 218 H 218 H Calcium 06/22/24 06/22/24 04:45 07:26 PT 27.2 H D INR 2.4 Sodium 136 L Potassium 3.8 Chloride 100 Carbon Dioxide 27 Anion Gap 9 BUN 12 Creatinine 0.70 Estim Creat Clear Calc 113 Estimated GFR > 60 Glucose 203 H POC Capillary Glucose 222 H Calcium 8.7
[2024-06-22 13:50] LABS: Glucose Point of Care 230 mg/dl (65-105)
[2024-06-22] MEDS: PERFLUTREN LIPID MICROSPHERES 1.5 ML VIAL DILUTED TO 10 ML TOTAL VOLUME IV PUSH (16:10)
--- NOTE | 2024-06-22 16:31 | IVDEFINITY ---
Prior to administration of IV Definity the patient was educated on the risks and benefits of the imaging enhancing agent including potential adverse side effects. The patient verbalized understanding. Allergies were verified. No exclusion criteria were identified and at least one of the following inclusion criteria were met: 1) physician request, 2) patient technically difficult to image (per the [place] [employer] guidelines of two or more segments not discernable within the apical view), or 3) questionable left ventricular function. ?
[2024-06-22 16:35] LABS: Glucose Point of Care 240 mg/dl (65-105)
--- NOTE | 2024-06-22 16:43 | P.DS_ITS ---
DS: Admitting Diagnosis Discharge Date 06/22/24 Admitting Diagnosis Chest pain DS: Discharge Diagnosis Discharge Diagnosis (1) Unstable angina: Code(s): I20.0 - Unstable angina Status: Acute (2) Type 2 diabetes mellitus without complication: Qualifiers: Diabetes mellitus penitentiary insulin use: without telegraph service rater use Qualified Code(s): E11.9 - Type 2 diabetes mellitus without complications Code(s): E11.9 - Type 2 diabetes mellitus without complications Status: Acute (3) HTN (hypertension): Qualifiers: Hypertension type: essential hypertension Qualified Code(s): I10 - Essential (primary) hypertension Code(s): I10 - Essential (primary) hypertension Status: Acute (4) Obstructive sleep apnea (adult) (pediatric): Code(s): G47.33 - Obstructive sleep apnea (adult) (pediatric) Status: Acute (5) H/O mechanical aortic valve replacement: Code(s): Z95.2 - Presence of prosthetic heart valve Status: Acute DS: Summary Hospital Course Reason for hospitalization: 63yo male with DM, CAD, HTN, PM and mechanical Ao valve on Coumadin here for chest pain. Please see H&P for details. Hospital Course: Patient presents with chest pain. Troponin negative x3. EKG showing electronic atrial/ventricular pacemaker. CXR clear. ASA 324 given and nitro SL prn was made available. Cardiology consulted. We continued ASA, Toprol, Imdur and statin. Warfarin held given the elevated INR. Cardiology recommended LHC but his INR was still too high. He became chest pain free. Options discussed including cardiac catheterization on Tuesday vs proceeding with nuclear stress test today. He wanted to proceed with stress test. He underwent Lexiscan stress test showing non-diagnostic stress ECG due to electronic pacing. The lexiscan portion showed no definite reversible or fixed perfusion abnormality to suggest ischemia or infarction. There is no segmental wall motion abnormality. Left ventricular ejection fraction measures 47%. A1c 9.8%. The patient's blood glucose was monitored with AccuCheks covering with sliding scale. Hypoglycemia protocol was available as needed. He believes he has been out of his metformin recently. Encouraged him to monitor his glucose more closely and to talk with his doctor about getting his glucose more tightly controlled to improve his risk factors. He voices understanding. Patient with mechanical Aortic valve replacement after what sounds like endocarditis. The valve appears in normal position by CXR. Echo ordered and is pending. He is on Coumadin but INR 4.2 so Coumadin held. He may be taking his Coumadin incorrectly. He also stated that he only has his INR monitored once every 6 months. He will need closer monitoring. Will resume Coumadin but make a slight adjustment with Coumadin 4mg daily except for 6mg on Tuesday and Tuesday. He overall did well and was able to be discharged home on 06/22/24. Status at Discharge Cognitive/behavioral status at discharge: stable Time Spent with Patient Time attestation: Total time spent providing and/or coordinating discharge services: 34 minutes Time spent: Greater than 30 minutes Exam Narrative: AF 97.7 143/77 82 20 98%ra Gen - NARD Chest - CTA bilaterally CV - RRR S1/S2 with mechanical S2. Abd - Soft, NT/ND, Positive BS Ext - no edema Psych - Nml mood and affect Skin - Warm and dry DS: Data Data Completed and Pending Labs on day of discharge: Labs from last 24 hours 06/22/24 06/22/24 06/22/24 16:29 13:39 07:26 PT INR Sodium Potassium Chloride Carbon Dioxide Anion Gap BUN Creatinine Estim Creat Clear Calc Estimated GFR Glucose POC Capillary Glucose 240 H 230 H 222 H Calcium 06/22/24 06/21/24 04:45 20:08 PT 27.2 H D INR 2.4 Sodium 136 L Potassium 3.8 Chloride 100 Carbon Dioxide 27 Anion Gap 9 BUN 12 Creatinine 0.70 Estim Creat Clear Calc 113 Estimated GFR > 60 Glucose 203 H POC Capillary Glucose 218 H Calcium 8.7 Discharge Plan Discharge Attending physician on discharge: Edenilson Perkins Consulting providers: Fidelina Ward Discharging Clinician: Edenilson Perkins Anticipated Discharge Date/Time: 06/22/24 16:59 Patient Disposition: Home, Self-Care Activity: as tolerated Diet: heart healthy and diabetic Discharge Instructions: Please check glucose before meals and before bed. Record and bring into your doctor for review. Check blood pressure 1 to 2 times a day. Record and bring into your doctor for review. Call your doctor if your blood pressure is greater than 180/110. Take precautions to avoid falls. Rise slowly from a lying or sitting position. Pause before standing or walking. Contact your doctor or call 911 and come to the Emergency Room if you have any type of trauma, lightheadedness with standing or other worrisome symptoms. Avoid NSAIDs (ibuprofen, naproxen, Aleve). Tylenol is safe to take. Follow-up with your primary care provider in 1-2 weeks. Please call for appointment. - talk with your doctor about other treatments for your diabetes Follow-up with Cardiology in 2-4 weeks. Please call for an appointment. Thank you for using [facility] for your health care needs. Patient Instructions: Antibiotic Form, How to Stop Smoking (GEN) Stand Alone Forms: General Discharge Information Follow-up/Referrals: Lee Branch MD [Primary Care Provider] - Call for Appointment Fidelina Ward MD [Physician] - Call for Appointment Discharge Medications: Continued isosorbide mononitrate 60 mg tablet extended release 24 hr 60 mg PO QAM donepezil [Aricept] 10 mg tablet 10 mg PO DAILY Qty: 90 2RF metoprolol succinate 50 mg tablet extended release 24 hr 50 mg PO DAILY Rx Instructions: TAKE 1 TABLET BY MOUTH IN THE MORNING metformin 1,000 mg tablet 1,000 mg PO BID Rx Instructions: TAKE 1 TABLET BY MOUTH TWICE DAILY WITH MORNING MEAL AND WITH EVENING MEAL rosuvastatin 10 mg tablet 10 mg PO DAILY Rx Instructions: Take 1 tablet by mouth once daily glipizide 5 mg tablet 5 mg PO DAILY aspirin 81 mg Tablet,Delayed Release (Dr/Ec) 81 mg PO DAILY losartan 100 mg tablet 100 mg PO DAILY Qty: 90 2RF Changed warfarin 4 mg tablet See Rx Instructions .ROUTE .COMPLEX Qty: 48 2RF Dose Instruction: TAKE 1 TABLET BY MOUTH 4 TIMES A WEEK ON TUESDAY, TUESDAY, TUESDAY AND TUESDAY Rx Instructions: TAKE 1 TABLET BY MOUTH 5 TIMES A WEEK ON TUESDAY, TUESDAY, TUESDAY,TUESDAY AND TUESDAY warfarin 6 mg tablet 6 mg PO 2XW Qty: 10 0RF Rx Instructions: Tuesday, Tuesday Other Ambulatory Orders: Prothrombin Time INR (WEEKLY) Timeframe: 20240625 Location: Determined by Patient Ordered By: Edenilson Perkins Prothrombin Time INR (WEEKLY) Timeframe: 20240702 Location: Determined by Patient Ordered By: Edenilson Perkins Prothrombin Time INR (WEEKLY) Timeframe: 20240709 Location: Determined by Patient Ordered By: Edenilson Perkins Prothrombin Time INR (WEEKLY) Timeframe: 20240716 Location: Determined by Patient Ordered By: Edenilson Maddie Prothrombin Time INR (WEEKLY) Timeframe: 20240723 Location: Determined by Patient Ordered By: Edenilson Maddie Prothrombin Time INR (WEEKLY) Timeframe: 20240628 Location: Determined by Patient Ordered By: Edenilson Maddie Prothrombin Time INR (WEEKLY) Timeframe: 20240705 Location: Determined by Patient Ordered By: Edenilson Maddie Prothrombin Time INR (WEEKLY) Timeframe: 20240712 Location: Determined by Patient Ordered By: Edenilson Maddie Prothrombin Time INR (WEEKLY) Timeframe: 20240719 Location: Determined by Patient Ordered By: Edenilson Maddie Prothrombin Time INR (WEEKLY) Timeframe: 20240726 Location: Determined by Patient Ordered By: Edenilson Perkins Date of admission: 06/20/24 14:08 Primary Care Provider: Lee Branch Admitting Provider: Adalid Dorado Attending physician on admission: Adalid Dorado Condition: Stable Hospitalist MIPS Heart Failure (Exclusion) Patient has history of Heart Transplant or Left Ventricular Assistive Device?: No IF YES, STOP HERE Heart Failure (Qualifier) Patient has current or prior documentation of LVEF less than or equal to 40%, or mod/servere depressed LVSF?: No IF NO, STOP HERE
== END 2024-06-22 17:40 | disposition home or self-care (01) ==
LOC: ANHED 14:30 → ANHIMU 17:28
PROVIDERS: Emergency Medicine; Student in an Organized Health Care Education/Training Program; Admitting Provider General Practice; Emergency Provider Physician Assistant; PCP Emergency Medicine; Visit Provider Internal Medicine
DX: I25.110 Atherosclerotic heart disease of native coronary artery with unstable angina pectoris (principal); I10 Essential (primary) hypertension; G47.33 Obstructive sleep apnea (adult) (pediatric); E11.9 Type 2 diabetes mellitus without complications; E78.2 Mixed hyperlipidemia; R79.1 Abnormal coagulation profile; F17.290 Nicotine dependence, other tobacco product, uncomplicated; F12.90 Cannabis use, unspecified, uncomplicated; N52.9 Male erectile dysfunction, unspecified; Z95.0 Presence of cardiac pacemaker; Z95.2 Presence of prosthetic heart valve; Z95.5 Presence of coronary angioplasty implant and graft; Z79.01 Long term (current) use of anticoagulants; Z79.82 Long term (current) use of aspirin; Z79.84 Long term (current) use of oral hypoglycemic drugs; Z98.890 Other specified postprocedural states; Z63.5 Disruption of family by separation and divorce
CPT/HCPCS: 36415; 71046; 78452; 80048; 80053; 82948; 83036; 83690; 84484; 85025; 85610; 85730; 93005; 93017; 96374; 99285; A9270; A9502; C8929; G0378; J1815; J2785; Q9957

== ENCOUNTER 2024-06-28 10:32 | Emergency (ER) | payer MEDICARE, SELFPAY ==
[2024-06-28 10:38] LABS: Glucose Point of Care 271 mg/dl (65-105)
[2024-06-28 10:48] VITALS: BP 163/82; PULSE 78; RESP 18; TEMP 37.1; O2SAT 99
--- NOTE | 2024-06-28 11:55 | PC.NURSE ---
Pt to the intake desk and states Im feeling better Im just going to leave. Pt ambulated to the exit with no difficulty
== END 2024-06-28 13:08 | disposition left against medical advice (07) ==
LOC: ANHED 12:00
PROVIDERS: Emergency Provider Student in an Organized Health Care Education/Training Program; PCP Emergency Medicine
DX: R73.9 Hyperglycemia, unspecified (principal); R42 Dizziness and giddiness
CPT/HCPCS: 82948; 99199

== ENCOUNTER 2024-07-04 12:48 | Outpatient (RCR) | payer MEDICARE, SELFPAY ==
[2024-07-04 13:28] LABS: INR 1.8; Prothrombin Time 21.8 Seconds (11.1-14.7)
== END 2024-10-02 23:59 | disposition home or self-care (01) ==
LOC: ANHLAB 12:48
PROVIDERS: PCP Emergency Medicine; Visit Provider Specialist
DX: Z51.81 Encounter for therapeutic drug level monitoring (principal); Z79.01 Long term (current) use of anticoagulants
CPT/HCPCS: 36415; 85610

== ENCOUNTER 2024-07-30 18:01 | Emergency (ER) | payer MEDICARE, SELFPAY ==
--- NOTE | ~2024-07-30 | XR_ITS ---
EXAMINATION: XR chest 2V DATE: 07/30/2024 18:45 INDICATION: Chest pain. TECHNIQUE: Frontal and lateral views of the chest were obtained. COMPARISON: Chest 2 views on 02/05 FINDINGS: There is no pneumonia, pleural effusion, or pneumothorax. Cardiomegaly is noted. There are changes of aortic valve replacement. There is a right chest wall pacer with leads in the right atrium and right ventricle. There are suture anchors in right humeral head. IMPRESSION: 1. Cardiomegaly. Reviewed, dictated and finalized at location [facility] IMPRESSION: 1. Cardiomegaly.
--- NOTE | 2024-07-30 18:03 | ECG_ITS ---
Test Date: 2024-07-30 18:32:54 Measurements Intervals [place] Rate: 72 P: 203 AL: 174 QRS: -68 QRSD: 204 T: 106 QT: 471 QTc: 517 Interpretive Statements ELECTRONIC ATRIAL PACEMAKER ELECTRONIC VENTRICULAR PACEMAKER Compared to ECG 06/20/2024 16:26:51 No significant changes Electronically Signed On 07-31-2024 16:07:10 GAS DISTRIBUTION AND EMERGENCY CLERK by Fidelina Ward M.D.
[2024-07-30 18:04] VITALS: BP 124/76; PULSE 78; RESP 18; TEMP 36.4; O2SAT 98
--- NOTE | 2024-07-30 18:06 | ED.CHESTPAIN ---
HPI - Chest Pain General Chief Complaint: Chest Pain <Nate Alston APRN - Last Filed: 07/30/24 18:07> Stated Complaint: CHEST PAIN,L ARM NUMB [id number] HX CARDIAC <Nate Alston APRN - Last Filed: 07/30/24 18:07> Time Seen by Provider: 07/30/24 18:43 <Nate Alston APRN - Last Filed: 07/30/24 18:07> 63-year-old male presents with left-sided chest pain that started 2 days. Patient states the symptoms started when he was moving. Patient states he has a history of aortic valve replaced in pacemaker. Patient denies any symptoms General appearance: Well-developed, well-nourished Skin: Normal color Head: Normocephalic, nontraumatic Eyes: Clear conjunctiva ENT: Oropharynx normal, ears normal, nose normal Neck: Supple, nontender Chest and respiratory: Airway patent, no respiratory distress, no accessory muscle use Heart: Regular rate/rhythm, obvious murmur Abdomen: Soft, nontender, no organomegaly, quiet bowel sounds Vascular: Normal peripheral pulses, normal capillary refill. Musculoskeletal: Normal range of motion, nontender back Neurologic: Alert and oriented ?3, PAINTER is normal as tested, no gross motor deficit <Nate Alston APRN - Last Filed: 07/30/24 18:07> This is a 63-year-old male presents with left-sided chest pain that started 2 days ago. Patient states the symptoms started when he was moving. Patient states he has a history of aortic valve replaced, and pacemaker. Patient has history of CAD. Reports chest pain has been constant. Reports shortness of breath with exertion. General appearance: Well-developed, well-nourished Skin: Normal color Head: Normocephalic, nontraumatic Eyes: Clear conjunctiva ENT: Oropharynx normal, ears normal, nose normal Neck: Supple, nontender Chest and respiratory: Airway patent, no respiratory distress, no accessory muscle use Heart: Regular rate/rhythm, obvious murmur Abdomen: Soft, nontender, no organomegaly, quiet bowel sounds Vascular: Normal peripheral pulses, normal capillary refill. Musculoskeletal: Normal range of motion, nontender back Neurologic: Alert and oriented ?3, PAINTER is normal as tested, no gross motor deficit <Elda Murphy PA-C - Last Filed: 07/30/24 23:06> Related Data Home Medications: Home Medications ?Medication ?Instructions ?Recorded ?Confirmed ?Last Taken ?Type isosorbide mononitrate 60 mg 60 mg PO QAM 12/08/21 06/20/24 06/20/24 History tablet,extended release 24 hr aspirin 81 mg tablet,delayed 81 mg PO DAILY 12/14/21 06/20/24 06/20/24 History release metformin 1,000 mg tablet 1,000 mg PO BID 06/20/24 06/20/24 06/20/24 History metoprolol succinate 50 mg 50 mg PO DAILY 06/20/24 06/20/24 06/20/24 History tablet,extended release 24 hr rosuvastatin 10 mg tablet 10 mg PO DAILY 06/20/24 06/20/24 06/20/24 History glipizide 5 mg tablet 5 mg PO DAILY 06/21/24 06/21/24 06/20/24 History <Nate Alston APRN - Last Filed: 07/30/24 18:07> Allergies/Adverse Reactions: Allergies Allergy/AdvReac Type Severity Reaction Status Date / Time hydromorphone AdvReac Mild Nausea and Verified 07/30/24 18:02 Vomiting <Nate Alston APRN - Last Filed: 07/30/24 18:07> Review of Systems Review of Systems: CONSTITUTIONAL: Denies fever CARDIOVASCULAR: Reports chest pain. Denies palpitations, or edema. RESPIRATORY: Reports dyspnea. <Elda Murphy PA-C - Last Filed: 07/30/24 23:06> All systems reviewed & are unremarkable except as noted in HPI and below <Elda Murphy PA-C - Last Filed: 07/30/24 23:06> [facility] Past Medical History Medical History: Medical History (Updated 07/30/24 @ 23:04 by Elda Murphy PA-C) Supratherapeutic INR Erectile dysfunction Heart disease History of kidney stones Incarcerated umbilical hernia s/p repair Tobacco abuse Chronic anticoagulation Coronary artery disease involving [place] coronary artery Presence of prosthetic heart valve Type 2 diabetes mellitus without complication HLD (hyperlipidemia) HTN (hypertension) <Nate Alston APRN - Last Filed: 07/30/24 18:07> Surgical History Surgical History: Surgical History (Updated 06/21/24 @ 15:52 by Edenilson Perkins MD) H/O mechanical aortic valve replacement H/O umbilical hernia repair Repair of incarcerated umbilical hernia with mesh 12/18. History of heart surgery History of repair of right rotator cuff <Nate Alston APRN - Last Filed: 07/30/24 18:07> Family History Family History: Family History Sibling Hypertension Family history of malignant neoplasm of kidney Father Family history of Parkinson's disease, Onset Age: 80 Family history of dementia, Onset Age: 80 Mother Tuberculosis Other Diabetes mellitus <Nate Alston APRN - Last Filed: 07/30/24 18:07> Social History Social History: Social History Smoking status: Current some day smoker Tobacco type: pipe and cigars Additional smoking assessment comments: PT smokes marijuana from a pipe a couple times a week Alcohol intake: current Drinks per week: 3 Alcohol use details: Few times a month Substance use: current Substance use type: marijuana Do You Feel Safe in your Home?: Yes Lack of Transportation: No Lack of Food: Sometimes True Current Housing: I Have Housing Concerned About Future Housing: YES Difficulty Paying Gas/Electric Bills: No Difficulty Paying for Meds: No Currently Unemployed: No Education: High School Diploma/GED Difficulty w/ Childcare or Family Care: No Living arrangements: with family Additional living arrangements comments: Occupation/Education: other Additional occupation/education comments: disabled Gender identity (if verbalized by the patient): Male Spiritual care concerns: No <Nate Alston APRN - Last Filed: 07/30/24 18:07> Exam Narrative: GENERAL: Well-appearing, well-nourished, and in no acute distress. HEAD: Normocephalic, atraumatic. EYES: EOMI. NECK: Supple. No adenopathy or masses. CHEST: Clear to auscultation. No respiratory distress. No wheezes rales or rhonchi HEART: Regular rate and rhythm. No murmur heard. Normal peripheral pulses. EXTREMITIES: Normal range of motion. No edema. SKIN: Warm, dry, no rash. NEURO: No focal deficits. Alert and oriented x3. PSYCH: Normal mood and affect <Elda Murphy PA-C - Last Filed: 07/30/24 23:06> Course Course Emergency Course: patient sleeping upon re-evaluation <Elda Murphy PA-C - Last Filed: 07/30/24 23:06> Consultations Consultation #1: Spoke with hospitalist about admission. Recommends consult with cardiology <Elda Murphy PA-C - Last Filed: 07/30/24 23:06> Date: 07/30/24 <GINNA Garcia Last Filed: 07/30/24 23:06> Consultation #2: Spoke with [employer] about patient and workup. With 2 negative troponins patient can follow up outpatient for further management <Elda Murphy PA-C - Last Filed: 07/30/24 23:06> Date: 07/30/24 <Elda Murphy PA-C - Last Filed: 07/30/24 23:06> Vital Signs Vital signs: Vital Signs Temperature 97.6 F 07/30/24 18:04 Pulse Rate 78 07/30/24 18:04 Respiratory Rate 18 07/30/24 18:04 Blood Pressure 124/76 07/30/24 18:04 Pulse Oximetry 98 07/30/24 18:04 Oxygen Delivery Room Air 07/30/24 18:04 Temperature 97.6 F 07/30/24 18:04 Pulse Rate 70 07/30/24 22:19 Respiratory Rate 15 07/30/24 22:19 Blood Pressure 130/64 07/30/24 22:19 Pulse Oximetry 98 07/30/24 22:19 Oxygen Delivery Room Air 07/30/24 18:51 <Nate Alston APRN - Last Filed: 07/30/24 18:07> Vital Signs Temperature 97.6 F 07/30/24 18:04 Pulse Rate 78 07/30/24 18:04 Respiratory Rate 18 07/30/24 18:04 Blood Pressure 124/76 07/30/24 18:04 Pulse Oximetry 98 07/30/24 18:04 Oxygen Delivery Room Air 07/30/24 18:04 Temperature 97.6 F 07/30/24 18:04 Pulse Rate 70 07/30/24 22:19 Respiratory Rate 15 07/30/24 22:19 Blood Pressure 130/64 07/30/24 22:19 Pulse Oximetry 98 07/30/24 22:19 Oxygen Delivery Room Air 07/30/24 18:51 <Elda Murphy PA-C - Last Filed: 07/30/24 23:06> MDM - Chest Pain MDM Narrative Medical decision making narrative: Patient presents to the emergency department for chest pain that has been ongoing over the last couple of days. His vitals are stable. CBC and metabolic panel without concerning findings. His INR is mildly supratherapeutic. EKG shows atrial pacemaker. His baseline and 3 hour troponin are negative. Chest x-ray shows cardiomegaly. Patient recently admitted for same 1 month ago and underwent a stress test. showed no definite reversible or fixed perfusion abnormality to suggest ischemia or infarction. patient sleeping upon re-evaluation. Spoke with hospitalist about admission. Recommends consult with cardiology. Spoke with Combatant Swimmer about patient and workup. With 2 negative troponins patient can follow up outpatient for further management. Instructed to have close follow-up with Cardiology. He was given warnings to return to the ER <Elda Murphy PA-C - Last Filed: 07/30/24 23:06> Differential Diagnosis Differential diagnosis: Likely stable angina, unstable angina pectoris, atypical chest pain, costochondritis and chest pain <Elda Murphy PA-C - Last Filed: 07/30/24 23:06> Medical Records Data Attestation: I reviewed the patient's medical records. <Elda Murphy PA-C - Last Filed: 07/30/24 23:06> Lab Data Attestation: I reviewed the patient's lab results. <Elda Murphy PA-C - Last Filed: 07/30/24 23:06> Result diagrams: 07/30/24 18:25 07/30/24 18:26 <Nate Alston APRN - Last Filed: 07/30/24 18:07> Labs: Lab Results 07/30/24 07/30/24 07/30/24 Range/Units 18:25 18:26 18:26 WBC 9.4 Cancelled (4.5-10.0) K/mm3 RBC 4.85 Cancelled (4.6-6.20) M/mm3 Hgb 13.7 L Cancelled (14.0-18.0) g/dL Hct 41.5 L Cancelled (42.0-52.0) % MCV 85.6 Cancelled (80-100) fl MCH 28.2 Cancelled (26-34) pg MCHC 33.0 Cancelled (32-36) g/dl RDW 14.6 H Cancelled (11.5-14.5) % Plt Count 158 Cancelled (150-375) k/mm3 MPV 11.8 H Cancelled (7.4-10.4) fl Immature Gran % (Auto) 0.3 Cancelled (0-0.5) % Neut % (Auto) 65.4 Cancelled (45.5-73.1) % Lymph % (Auto) 23.1 Cancelled (18.3-44.2) % [place] % (Auto) 8.9 H Cancelled (2.6-8.5) % Eos % (Auto) 1.8 Cancelled (0-4.4) % Baso % (Auto) 0.5 Cancelled (0.2-1.2) % Lymph # (Auto) 2.16 Cancelled (0.9-3.2) K/mm3 [place] # (Auto) 0.8 H Cancelled (0.1-0.6) K/mm3 Eos # (Auto) 0.2 Cancelled (0-0.3) K/mm3 Baso # (Auto) 0.1 Cancelled (0.0-0.1) K/mm3 Abs Immat Gran (auto) 0.03 Cancelled (0.00-0.031) K/mm3 Absolute Neuts (auto) 6.1 Cancelled (1.3-6.7) K/mm3 Absolute Nucleated RBC 0.000 Cancelled (0.0-0.012) K/mm3 Nucleated RBC % 0.0 Cancelled (0.0-0.2) % % Immature Plt Fraction Cancelled PT 40.5 H Cancelled (11.1-14.7) Seconds INR 4.1 APTT (22.3-36.8) Seconds Sodium (137-145) mmol/L Potassium (3.4-5.0) mmol/L Chloride (98-107) mmol/L Carbon Dioxide (22-30) mmol/L Anion Gap (4-12) mmol/L BUN (9-20) mg/dL Creatinine (0.7-1.3) mg/dL Estim Creat Clear Calc ml/min Estimated GFR (59 - ) Glucose (65-110) mg/dL Calcium (8.4-10.2) mg/dL Total Bilirubin (0.2-1.3) mg/dL AST (17-59) U/L ALT (6-50) U/L Alkaline Phosphatase (38-126) U/L Troponin I (0.000-0.034) ng/mL NT-Pro-B Natriuret Pep (19.9-100) pg/mL Total Protein (6.3-8.2) g/dL Albumin (3.5-5.1) g/dL Lipase (23-300) U/L 07/30/24 07/30/24 07/30/24 Range/Units 18:26 18:26 18:26 WBC (4.5-10.0) K/mm3 RBC (4.6-6.20) M/mm3 Hgb (14.0-18.0) g/dL Hct (42.0-52.0) % MCV (80-100) fl MCH (26-34) pg MCHC (32-36) g/dl RDW (11.5-14.5) % Plt Count (150-375) k/mm3 MPV (7.4-10.4) fl Immature Gran % (Auto) (0-0.5) % Neut % (Auto) (45.5-73.1) % Lymph % (Auto) (18.3-44.2) % [place] % (Auto) (2.6-8.5) % Eos % (Auto) (0-4.4) % Baso % (Auto) (0.2-1.2) % Lymph # (Auto) (0.9-3.2) K/mm3 [place] # (Auto) (0.1-0.6) K/mm3 Eos # (Auto) (0-0.3) K/mm3 Baso # (Auto) (0.0-0.1) K/mm3 Abs Immat Gran (auto) (0.00-0.031) K/mm3 Absolute Neuts (auto) (1.3-6.7) K/mm3 Absolute Nucleated RBC (0.0-0.012) K/mm3 Nucleated RBC % (0.0-0.2) % % Immature Plt Fraction PT (11.1-14.7) Seconds INR Cancelled APTT 37.6 H Cancelled (22.3-36.8) Seconds Sodium 137 138 (137-145) mmol/L Potassium 4.1 (3.4-5.0) mmol/L Chloride (98-107) mmol/L Carbon Dioxide (22-30) mmol/L Anion Gap (4-12) mmol/L BUN (9-20) mg/dL Creatinine (0.7-1.3) mg/dL Estim Creat Clear Calc ml/min Estimated GFR (59 - ) Glucose (65-110) mg/dL Calcium (8.4-10.2) mg/dL Total Bilirubin (0.2-1.3) mg/dL AST (17-59) U/L ALT (6-50) U/L Alkaline Phosphatase (38-126) U/L Troponin I (0.000-0.034) ng/mL NT-Pro-B Natriuret Pep (19.9-100) pg/mL Total Protein (6.3-8.2) g/dL Albumin (3.5-5.1) g/dL Lipase (23-300) U/L 07/30/24 07/30/24 07/30/24 Range/Units 18:26 18:26 18:26 WBC (4.5-10.0) K/mm3 RBC (4.6-6.20) M/mm3 Hgb (14.0-18.0) g/dL Hct (42.0-52.0) % MCV (80-100) fl MCH (26-34) pg MCHC (32-36) g/dl RDW (11.5-14.5) % Plt Count (150-375) k/mm3 MPV (7.4-10.4) fl Immature Gran % (Auto) (0-0.5) % Neut % (Auto) (45.5-73.1) % Lymph % (Auto) (18.3-44.2) % [place] % (Auto) (2.6-8.5) % Eos % (Auto) (0-4.4) % Baso % (Auto) (0.2-1.2) % Lymph # (Auto) (0.9-3.2) K/mm3 [place] # (Auto) (0.1-0.6) K/mm3 Eos # (Auto) (0-0.3) K/mm3 Baso # (Auto) (0.0-0.1) K/mm3 Abs Immat Gran (auto) (0.00-0.031) K/mm3 Absolute Neuts (auto) (1.3-6.7) K/mm3 Absolute Nucleated RBC (0.0-0.012) K/mm3 Nucleated RBC % (0.0-0.2) % % Immature Plt Fraction PT (11.1-14.7) Seconds INR APTT (22.3-36.8) Seconds Sodium (137-145) mmol/L Potassium 4.1 (3.4-5.0) mmol/L Chloride 106 107 (98-107) mmol/L Carbon Dioxide 24 25 (22-30) mmol/L Anion Gap 7 (4-12) mmol/L BUN (9-20) mg/dL Creatinine (0.7-1.3) mg/dL Estim Creat Clear Calc ml/min Estimated GFR (59 - ) Glucose (65-110) mg/dL Calcium (8.4-10.2) mg/dL Total Bilirubin (0.2-1.3) mg/dL AST (17-59) U/L ALT (6-50) U/L Alkaline Phosphatase (38-126) U/L Troponin I (0.000-0.034) ng/mL NT-Pro-B Natriuret Pep (19.9-100) pg/mL Total Protein (6.3-8.2) g/dL Albumin (3.5-5.1) g/dL Lipase (23-300) U/L 07/30/24 07/30/24 07/30/24 Range/Units 18:26 18:26 18:26 WBC (4.5-10.0) K/mm3 RBC (4.6-6.20) M/mm3 Hgb (14.0-18.0) g/dL Hct (42.0-52.0) % MCV (80-100) fl MCH (26-34) pg MCHC (32-36) g/dl RDW (11.5-14.5) % Plt Count (150-375) k/mm3 MPV (7.4-10.4) fl Immature Gran % (Auto) (0-0.5) % Neut % (Auto) (45.5-73.1) % Lymph % (Auto) (18.3-44.2) % [place] % (Auto) (2.6-8.5) % Eos % (Auto) (0-4.4) % Baso % (Auto) (0.2-1.2) % Lymph # (Auto) (0.9-3.2) K/mm3 [place] # (Auto) (0.1-0.6) K/mm3 Eos # (Auto) (0-0.3) K/mm3 Baso # (Auto) (0.0-0.1) K/mm3 Abs Immat Gran (auto) (0.00-0.031) K/mm3 Absolute Neuts (auto) (1.3-6.7) K/mm3 Absolute Nucleated RBC (0.0-0.012) K/mm3 Nucleated RBC % (0.0-0.2) % % Immature Plt Fraction PT (11.1-14.7) Seconds INR APTT (22.3-36.8) Seconds Sodium (137-145) mmol/L Potassium (3.4-5.0) mmol/L Chloride (98-107) mmol/L Carbon Dioxide (22-30) mmol/L Anion Gap 6 (4-12) mmol/L BUN 24 H D 24 H (9-20) mg/dL Creatinine 1.00 1.00 (0.7-1.3) mg/dL Estim Creat Clear Calc 82 ml/min Estimated GFR (59 - ) Glucose (65-110) mg/dL Calcium (8.4-10.2) mg/dL Total Bilirubin (0.2-1.3) mg/dL AST (17-59) U/L ALT (6-50) U/L Alkaline Phosphatase (38-126) U/L Troponin I (0.000-0.034) ng/mL NT-Pro-B Natriuret Pep (19.9-100) pg/mL Total Protein (6.3-8.2) g/dL Albumin (3.5-5.1) g/dL Lipase (23-300) U/L 07/30/24 07/30/24 07/30/24 Range/Units 18:26 18:26 18:26 WBC (4.5-10.0) K/mm3 RBC (4.6-6.20) M/mm3 Hgb (14.0-18.0) g/dL Hct (42.0-52.0) % MCV (80-100) fl MCH (26-34) pg MCHC (32-36) g/dl RDW (11.5-14.5) % Plt Count (150-375) k/mm3 MPV (7.4-10.4) fl Immature Gran % (Auto) (0-0.5) % Neut % (Auto) (45.5-73.1) % Lymph % (Auto) (18.3-44.2) % [place] % (Auto) (2.6-8.5) % Eos % (Auto) (0-4.4) % Baso % (Auto) (0.2-1.2) % Lymph # (Auto) (0.9-3.2) K/mm3 [place] # (Auto) (0.1-0.6) K/mm3 Eos # (Auto) (0-0.3) K/mm3 Baso # (Auto) (0.0-0.1) K/mm3 Abs Immat Gran (auto) (0.00-0.031) K/mm3 Absolute Neuts (auto) (1.3-6.7) K/mm3 Absolute Nucleated RBC (0.0-0.012) K/mm3 Nucleated RBC % (0.0-0.2) % % Immature Plt Fraction PT (11.1-14.7) Seconds INR APTT (22.3-36.8) Seconds Sodium (137-145) mmol/L Potassium (3.4-5.0) mmol/L Chloride (98-107) mmol/L Carbon Dioxide (22-30) mmol/L Anion Gap (4-12) mmol/L BUN (9-20) mg/dL Creatinine (0.7-1.3) mg/dL Estim Creat Clear Calc 82 ml/min Estimated GFR > 60 > 60 (59 - ) Glucose 219 H 219 H (65-110) mg/dL Calcium 9.0 (8.4-10.2) mg/dL Total Bilirubin (0.2-1.3) mg/dL AST (17-59) U/L ALT (6-50) U/L Alkaline Phosphatase (38-126) U/L Troponin I (0.000-0.034) ng/mL NT-Pro-B Natriuret Pep (19.9-100) pg/mL Total Protein (6.3-8.2) g/dL Albumin (3.5-5.1) g/dL Lipase (23-300) U/L 07/30/24 07/30/24 07/30/24 Range/Units 18:26 18:26 18:26 WBC (4.5-10.0) K/mm3 RBC (4.6-6.20) M/mm3 Hgb (14.0-18.0) g/dL Hct (42.0-52.0) % MCV (80-100) fl MCH (26-34) pg MCHC (32-36) g/dl RDW (11.5-14.5) % Plt Count (150-375) k/mm3 MPV (7.4-10.4) fl Immature Gran % (Auto) (0-0.5) % Neut % (Auto) (45.5-73.1) % Lymph % (Auto) (18.3-44.2) % [place] % (Auto) (2.6-8.5) % Eos % (Auto) (0-4.4) % Baso % (Auto) (0.2-1.2) % Lymph # (Auto) (0.9-3.2) K/mm3 [place] # (Auto) (0.1-0.6) K/mm3 Eos # (Auto) (0-0.3) K/mm3 Baso # (Auto) (0.0-0.1) K/mm3 Abs Immat Gran (auto) (0.00-0.031) K/mm3 Absolute Neuts (auto) (1.3-6.7) K/mm3 Absolute Nucleated RBC (0.0-0.012) K/mm3 Nucleated RBC % (0.0-0.2) % % Immature Plt Fraction PT (11.1-14.7) Seconds INR APTT (22.3-36.8) Seconds Sodium (137-145) mmol/L Potassium (3.4-5.0) mmol/L Chloride (98-107) mmol/L Carbon Dioxide (22-30) mmol/L Anion Gap (4-12) mmol/L BUN (9-20) mg/dL Creatinine (0.7-1.3) mg/dL Estim Creat Clear Calc ml/min Estimated GFR (59 - ) Glucose (65-110) mg/dL Calcium 9.0 (8.4-10.2) mg/dL Total Bilirubin 0.7 0.7 (0.2-1.3) mg/dL AST 45 44 (17-59) U/L ALT 37 (6-50) U/L Alkaline Phosphatase (38-126) U/L Troponin I (0.000-0.034) ng/mL NT-Pro-B Natriuret Pep (19.9-100) pg/mL Total Protein (6.3-8.2) g/dL Albumin (3.5-5.1) g/dL Lipase (23-300) U/L 07/30/24 07/30/24 07/30/24 Range/Units 18:26 18:26 18:26 WBC (4.5-10.0) K/mm3 RBC (4.6-6.20) M/mm3 Hgb (14.0-18.0) g/dL Hct (42.0-52.0) % MCV (80-100) fl MCH (26-34) pg MCHC (32-36) g/dl RDW (11.5-14.5) % Plt Count (150-375) k/mm3 MPV (7.4-10.4) fl Immature Gran % (Auto) (0-0.5) % Neut % (Auto) (45.5-73.1) % Lymph % (Auto) (18.3-44.2) % [place] % (Auto) (2.6-8.5) % Eos % (Auto) (0-4.4) % Baso % (Auto) (0.2-1.2) % Lymph # (Auto) (0.9-3.2) K/mm3 [place] # (Auto) (0.1-0.6) K/mm3 Eos # (Auto) (0-0.3) K/mm3 Baso # (Auto) (0.0-0.1) K/mm3 Abs Immat Gran (auto) (0.00-0.031) K/mm3 Absolute Neuts (auto) (1.3-6.7) K/mm3 Absolute Nucleated RBC (0.0-0.012) K/mm3 Nucleated RBC % (0.0-0.2) % % Immature Plt Fraction PT (11.1-14.7) Seconds INR APTT (22.3-36.8) Seconds Sodium (137-145) mmol/L Potassium (3.4-5.0) mmol/L Chloride (98-107) mmol/L Carbon Dioxide (22-30) mmol/L Anion Gap (4-12) mmol/L BUN (9-20) mg/dL Creatinine (0.7-1.3) mg/dL Estim Creat Clear Calc ml/min Estimated GFR (59 - ) Glucose (65-110) mg/dL Calcium (8.4-10.2) mg/dL Total Bilirubin (0.2-1.3) mg/dL AST (17-59) U/L ALT 38 (6-50) U/L Alkaline Phosphatase 65 64 (38-126) U/L Troponin I < 0.012 < 0.012 (0.000-0.034) ng/mL NT-Pro-B Natriuret Pep 182 H (19.9-100) pg/mL Total Protein 7.0 (6.3-8.2) g/dL Albumin (3.5-5.1) g/dL Lipase (23-300) U/L 07/30/24 07/30/24 07/30/24 Range/Units 18:26 18:26 21:22 WBC (4.5-10.0) K/mm3 RBC (4.6-6.20) M/mm3 Hgb (14.0-18.0) g/dL Hct (42.0-52.0) % MCV (80-100) fl MCH (26-34) pg MCHC (32-36) g/dl RDW (11.5-14.5) % Plt Count (150-375) k/mm3 MPV (7.4-10.4) fl Immature Gran % (Auto) (0-0.5) % Neut % (Auto) (45.5-73.1) % Lymph % (Auto) (18.3-44.2) % [place] % (Auto) (2.6-8.5) % Eos % (Auto) (0-4.4) % Baso % (Auto) (0.2-1.2) % Lymph # (Auto) (0.9-3.2) K/mm3 [place] # (Auto) (0.1-0.6) K/mm3 Eos # (Auto) (0-0.3) K/mm3 Baso # (Auto) (0.0-0.1) K/mm3 Abs Immat Gran (auto) (0.00-0.031) K/mm3 Absolute Neuts (auto) (1.3-6.7) K/mm3 Absolute Nucleated RBC (0.0-0.012) K/mm3 Nucleated RBC % (0.0-0.2) % % Immature Plt Fraction PT (11.1-14.7) Seconds INR APTT (22.3-36.8) Seconds Sodium (137-145) mmol/L Potassium (3.4-5.0) mmol/L Chloride (98-107) mmol/L Carbon Dioxide (22-30) mmol/L Anion Gap (4-12) mmol/L BUN (9-20) mg/dL Creatinine (0.7-1.3) mg/dL Estim Creat Clear Calc ml/min Estimated GFR (59 - ) Glucose (65-110) mg/dL Calcium (8.4-10.2) mg/dL Total Bilirubin (0.2-1.3) mg/dL AST (17-59) U/L ALT (6-50) U/L Alkaline Phosphatase (38-126) U/L Troponin I < 0.012 (0.000-0.034) ng/mL NT-Pro-B Natriuret Pep (19.9-100) pg/mL Total Protein 7.0 (6.3-8.2) g/dL Albumin 4.1 4.2 (3.5-5.1) g/dL Lipase 318 H (23-300) U/L <Nate Alston [employer] - Last Filed: 07/30/24 18:07> Lab Results 07/30/24 07/30/24 07/30/24 Range/Units 18:25 18:26 18:26 WBC 9.4 Cancelled (4.5-10.0) K/mm3 RBC 4.85 Cancelled (4.6-6.20) M/mm3 Hgb 13.7 L Cancelled (14.0-18.0) g/dL Hct 41.5 L Cancelled (42.0-52.0) % MCV 85.6 Cancelled (80-100) fl MCH 28.2 Cancelled (26-34) pg MCHC 33.0 Cancelled (32-36) g/dl RDW 14.6 H Cancelled (11.5-14.5) % Plt Count 158 Cancelled (150-375) k/mm3 MPV 11.8 H Cancelled (7.4-10.4) fl Immature Gran % (Auto) 0.3 Cancelled (0-0.5) % Neut % (Auto) 65.4 Cancelled (45.5-73.1) % Lymph % (Auto) 23.1 Cancelled (18.3-44.2) % [place] % (Auto) 8.9 H Cancelled (2.6-8.5) % Eos % (Auto) 1.8 Cancelled (0-4.4) % Baso % (Auto) 0.5 Cancelled (0.2-1.2) % Lymph # (Auto) 2.16 Cancelled (0.9-3.2) K/mm3 [place] # (Auto) 0.8 H Cancelled (0.1-0.6) K/mm3 Eos # (Auto) 0.2 Cancelled (0-0.3) K/mm3 Baso # (Auto) 0.1 Cancelled (0.0-0.1) K/mm3 Abs Immat Gran (auto) 0.03 Cancelled (0.00-0.031) K/mm3 Absolute Neuts (auto) 6.1 Cancelled (1.3-6.7) K/mm3 Absolute Nucleated RBC 0.000 Cancelled (0.0-0.012) K/mm3 Nucleated RBC % 0.0 Cancelled (0.0-0.2) % % Immature Plt Fraction Cancelled PT 40.5 H Cancelled (11.1-14.7) Seconds INR 4.1 APTT (22.3-36.8) Seconds Sodium (137-145) mmol/L Potassium (3.4-5.0) mmol/L Chloride (98-107) mmol/L Carbon Dioxide (22-30) mmol/L Anion Gap (4-12) mmol/L BUN (9-20) mg/dL Creatinine (0.7-1.3) mg/dL Estim Creat Clear Calc ml/min Estimated GFR (59 - ) Glucose (65-110) mg/dL Calcium (8.4-10.2) mg/dL Total Bilirubin (0.2-1.3) mg/dL AST (17-59) U/L ALT (6-50) U/L Alkaline Phosphatase (38-126) U/L Troponin I (0.000-0.034) ng/mL NT-Pro-B Natriuret Pep (19.9-100) pg/mL Total Protein (6.3-8.2) g/dL Albumin (3.5-5.1) g/dL Lipase (23-300) U/L 07/30/24 07/30/24 07/30/24 Range/Units 18:26 18:26 18:26 WBC (4.5-10.0) K/mm3 RBC (4.6-6.20) M/mm3 Hgb (14.0-18.0) g/dL Hct (42.0-52.0) % MCV (80-100) fl MCH (26-34) pg MCHC (32-36) g/dl RDW (11.5-14.5) % Plt Count (150-375) k/mm3 MPV (7.4-10.4) fl Immature Gran % (Auto) (0-0.5) % Neut % (Auto) (45.5-73.1) % Lymph % (Auto) (18.3-44.2) % [place] % (Auto) (2.6-8.5) % Eos % (Auto) (0-4.4) % Baso % (Auto) (0.2-1.2) % Lymph # (Auto) (0.9-3.2) K/mm3 [place] # (Auto) (0.1-0.6) K/mm3 Eos # (Auto) (0-0.3) K/mm3 Baso # (Auto) (0.0-0.1) K/mm3 Abs Immat Gran (auto) (0.00-0.031) K/mm3 Absolute Neuts (auto) (1.3-6.7) K/mm3 Absolute Nucleated RBC (0.0-0.012) K/mm3 Nucleated RBC % (0.0-0.2) % % Immature Plt Fraction PT (11.1-14.7) Seconds INR Cancelled APTT 37.6 H Cancelled (22.3-36.8) Seconds Sodium 137 138 (137-145) mmol/L Potassium 4.1 (3.4-5.0) mmol/L Chloride (98-107) mmol/L Carbon Dioxide (22-30) mmol/L Anion Gap (4-12) mmol/L BUN (9-20) mg/dL Creatinine (0.7-1.3) mg/dL Estim Creat Clear Calc ml/min Estimated GFR (59 - ) Glucose (65-110) mg/dL Calcium (8.4-10.2) mg/dL Total Bilirubin (0.2-1.3) mg/dL AST (17-59) U/L ALT (6-50) U/L Alkaline Phosphatase (38-126) U/L Troponin I (0.000-0.034) ng/mL NT-Pro-B Natriuret Pep (19.9-100) pg/mL Total Protein (6.3-8.2) g/dL Albumin (3.5-5.1) g/dL Lipase (23-300) U/L 07/30/24 07/30/24 07/30/24 Range/Units 18:26 18:26 18:26 WBC (4.5-10.0) K/mm3 RBC (4.6-6.20) M/mm3 Hgb (14.0-18.0) g/dL Hct (42.0-52.0) % MCV (80-100) fl MCH (26-34) pg MCHC (32-36) g/dl RDW (11.5-14.5) % Plt Count (150-375) k/mm3 MPV (7.4-10.4) fl Immature Gran % (Auto) (0-0.5) % Neut % (Auto) (45.5-73.1) % Lymph % (Auto) (18.3-44.2) % [place] % (Auto) (2.6-8.5) % Eos % (Auto) (0-4.4) % Baso % (Auto) (0.2-1.2) % Lymph # (Auto) (0.9-3.2) K/mm3 [place] # (Auto) (0.1-0.6) K/mm3 Eos # (Auto) (0-0.3) K/mm3 Baso # (Auto) (0.0-0.1) K/mm3 Abs Immat Gran (auto) (0.00-0.031) K/mm3 Absolute Neuts (auto) (1.3-6.7) K/mm3 Absolute Nucleated RBC (0.0-0.012) K/mm3 Nucleated RBC % (0.0-0.2) % % Immature Plt Fraction PT (11.1-14.7) Seconds INR APTT (22.3-36.8) Seconds Sodium (137-145) mmol/L Potassium 4.1 (3.4-5.0) mmol/L Chloride 106 107 (98-107) mmol/L Carbon Dioxide 24 25 (22-30) mmol/L Anion Gap 7 (4-12) mmol/L BUN (9-20) mg/dL Creatinine (0.7-1.3) mg/dL Estim Creat Clear Calc ml/min Estimated GFR (59 - ) Glucose (65-110) mg/dL Calcium (8.4-10.2) mg/dL Total Bilirubin (0.2-1.3) mg/dL AST (17-59) U/L ALT (6-50) U/L Alkaline Phosphatase (38-126) U/L Troponin I (0.000-0.034) ng/mL NT-Pro-B Natriuret Pep (19.9-100) pg/mL Total Protein (6.3-8.2) g/dL Albumin (3.5-5.1) g/dL Lipase (23-300) U/L 07/30/24 07/30/24 07/30/24 Range/Units 18:26 18:26 18:26 WBC (4.5-10.0) K/mm3 RBC (4.6-6.20) M/mm3 Hgb (14.0-18.0) g/dL Hct (42.0-52.0) % MCV (80-100) fl MCH (26-34) pg MCHC (32-36) g/dl RDW (11.5-14.5) % Plt Count (150-375) k/mm3 MPV (7.4-10.4) fl Immature Gran % (Auto) (0-0.5) % Neut % (Auto) (45.5-73.1) % Lymph % (Auto) (18.3-44.2) % [place] % (Auto) (2.6-8.5) % Eos % (Auto) (0-4.4) % Baso % (Auto) (0.2-1.2) % Lymph # (Auto) (0.9-3.2) K/mm3 [place] # (Auto) (0.1-0.6) K/mm3 Eos # (Auto) (0-0.3) K/mm3 Baso # (Auto) (0.0-0.1) K/mm3 Abs Immat Gran (auto) (0.00-0.031) K/mm3 Absolute Neuts (auto) (1.3-6.7) K/mm3 Absolute Nucleated RBC (0.0-0.012) K/mm3 Nucleated RBC % (0.0-0.2) % % Immature Plt Fraction PT (11.1-14.7) Seconds INR APTT (22.3-36.8) Seconds Sodium (137-145) mmol/L Potassium (3.4-5.0) mmol/L Chloride (98-107) mmol/L Carbon Dioxide (22-30) mmol/L Anion Gap 6 (4-12) mmol/L BUN 24 H D 24 H (9-20) mg/dL Creatinine 1.00 1.00 (0.7-1.3) mg/dL Estim Creat Clear Calc 82 ml/min Estimated GFR (59 - ) Glucose (65-110) mg/dL Calcium (8.4-10.2) mg/dL Total Bilirubin (0.2-1.3) mg/dL AST (17-59) U/L ALT (6-50) U/L Alkaline Phosphatase (38-126) U/L Troponin I (0.000-0.034) ng/mL NT-Pro-B Natriuret Pep (19.9-100) pg/mL Total Protein (6.3-8.2) g/dL Albumin (3.5-5.1) g/dL Lipase (23-300) U/L 07/30/24 07/30/24 07/30/24 Range/Units 18:26 18:26 18:26 WBC (4.5-10.0) K/mm3 RBC (4.6-6.20) M/mm3 Hgb (14.0-18.0) g/dL Hct (42.0-52.0) % MCV (80-100) fl MCH (26-34) pg MCHC (32-36) g/dl RDW (11.5-14.5) % Plt Count (150-375) k/mm3 MPV (7.4-10.4) fl Immature Gran % (Auto) (0-0.5) % Neut % (Auto) (45.5-73.1) % Lymph % (Auto) (18.3-44.2) % [place] % (Auto) (2.6-8.5) % Eos % (Auto) (0-4.4) % Baso % (Auto) (0.2-1.2) % Lymph # (Auto) (0.9-3.2) K/mm3 [place] # (Auto) (0.1-0.6) K/mm3 Eos # (Auto) (0-0.3) K/mm3 Baso # (Auto) (0.0-0.1) K/mm3 Abs Immat Gran (auto) (0.00-0.031) K/mm3 Absolute Neuts (auto) (1.3-6.7) K/mm3 Absolute Nucleated RBC (0.0-0.012) K/mm3 Nucleated RBC % (0.0-0.2) % % Immature Plt Fraction PT (11.1-14.7) Seconds INR APTT (22.3-36.8) Seconds Sodium (137-145) mmol/L Potassium (3.4-5.0) mmol/L Chloride (98-107) mmol/L Carbon Dioxide (22-30) mmol/L Anion Gap (4-12) mmol/L BUN (9-20) mg/dL Creatinine (0.7-1.3) mg/dL Estim Creat Clear Calc 82 ml/min Estimated GFR > 60 > 60 (59 - ) Glucose 219 H 219 H (65-110) mg/dL Calcium 9.0 (8.4-10.2) mg/dL Total Bilirubin (0.2-1.3) mg/dL AST (17-59) U/L ALT (6-50) U/L Alkaline Phosphatase (38-126) U/L Troponin I (0.000-0.034) ng/mL NT-Pro-B Natriuret Pep (19.9-100) pg/mL Total Protein (6.3-8.2) g/dL Albumin (3.5-5.1) g/dL Lipase (23-300) U/L 07/30/24 07/30/24 07/30/24 Range/Units 18:26 18:26 18:26 WBC (4.5-10.0) K/mm3 RBC (4.6-6.20) M/mm3 Hgb (14.0-18.0) g/dL Hct (42.0-52.0) % MCV (80-100) fl MCH (26-34) pg MCHC (32-36) g/dl RDW (11.5-14.5) % Plt Count (150-375) k/mm3 MPV (7.4-10.4) fl Immature Gran % (Auto) (0-0.5) % Neut % (Auto) (45.5-73.1) % Lymph % (Auto) (18.3-44.2) % [place] % (Auto) (2.6-8.5) % Eos % (Auto) (0-4.4) % Baso % (Auto) (0.2-1.2) % Lymph # (Auto) (0.9-3.2) K/mm3 [place] # (Auto) (0.1-0.6) K/mm3 Eos # (Auto) (0-0.3) K/mm3 Baso # (Auto) (0.0-0.1) K/mm3 Abs Immat Gran (auto) (0.00-0.031) K/mm3 Absolute Neuts (auto) (1.3-6.7) K/mm3 Absolute Nucleated RBC (0.0-0.012) K/mm3 Nucleated RBC % (0.0-0.2) % % Immature Plt Fraction PT (11.1-14.7) Seconds INR APTT (22.3-36.8) Seconds Sodium (137-145) mmol/L Potassium (3.4-5.0) mmol/L Chloride (98-107) mmol/L Carbon Dioxide (22-30) mmol/L Anion Gap (4-12) mmol/L BUN (9-20) mg/dL Creatinine (0.7-1.3) mg/dL Estim Creat Clear Calc ml/min Estimated GFR (59 - ) Glucose (65-110) mg/dL Calcium 9.0 (8.4-10.2) mg/dL Total Bilirubin 0.7 0.7 (0.2-1.3) mg/dL AST 45 44 (17-59) U/L ALT 37 (6-50) U/L Alkaline Phosphatase (38-126) U/L Troponin I (0.000-0.034) ng/mL NT-Pro-B Natriuret Pep (19.9-100) pg/mL Total Protein (6.3-8.2) g/dL Albumin (3.5-5.1) g/dL Lipase (23-300) U/L 07/30/24 07/30/24 07/30/24 Range/Units 18:26 18:26 18:26 WBC (4.5-10.0) K/mm3 RBC (4.6-6.20) M/mm3 Hgb (14.0-18.0) g/dL Hct (42.0-52.0) % MCV (80-100) fl MCH (26-34) pg MCHC (32-36) g/dl RDW (11.5-14.5) % Plt Count (150-375) k/mm3 MPV (7.4-10.4) fl Immature Gran % (Auto) (0-0.5) % Neut % (Auto) (45.5-73.1) % Lymph % (Auto) (18.3-44.2) % [place] % (Auto) (2.6-8.5) % Eos % (Auto) (0-4.4) % Baso % (Auto) (0.2-1.2) % Lymph # (Auto) (0.9-3.2) K/mm3 [place] # (Auto) (0.1-0.6) K/mm3 Eos # (Auto) (0-0.3) K/mm3 Baso # (Auto) (0.0-0.1) K/mm3 Abs Immat Gran (auto) (0.00-0.031) K/mm3 Absolute Neuts (auto) (1.3-6.7) K/mm3 Absolute Nucleated RBC (0.0-0.012) K/mm3 Nucleated RBC % (0.0-0.2) % % Immature Plt Fraction PT (11.1-14.7) Seconds INR APTT (22.3-36.8) Seconds Sodium (137-145) mmol/L Potassium (3.4-5.0) mmol/L Chloride (98-107) mmol/L Carbon Dioxide (22-30) mmol/L Anion Gap (4-12) mmol/L BUN (9-20) mg/dL Creatinine (0.7-1.3) mg/dL Estim Creat Clear Calc ml/min Estimated GFR (59 - ) Glucose (65-110) mg/dL Calcium (8.4-10.2) mg/dL Total Bilirubin (0.2-1.3) mg/dL AST (17-59) U/L ALT 38 (6-50) U/L Alkaline Phosphatase 65 64 (38-126) U/L Troponin I < 0.012 < 0.012 (0.000-0.034) ng/mL NT-Pro-B Natriuret Pep 182 H (19.9-100) pg/mL Total Protein 7.0 (6.3-8.2) g/dL Albumin (3.5-5.1) g/dL Lipase (23-300) U/L 12/07/30/24 07/30/24 Range/Units 18:26 18:26 21:22 WBC (4.5-10.0) K/mm3 RBC (4.6-6.20) M/mm3 Hgb (14.0-18.0) g/dL Hct (42.0-52.0) % MCV (80-100) fl MCH (26-34) pg MCHC (32-36) g/dl RDW (11.5-14.5) % Plt Count (150-375) k/mm3 MPV (7.4-10.4) fl Immature Gran % (Auto) (0-0.5) % Neut % (Auto) (45.5-73.1) % Lymph % (Auto) (18.3-44.2) % [place] % (Auto) (2.6-8.5) % Eos % (Auto) (0-4.4) % Baso % (Auto) (0.2-1.2) % Lymph # (Auto) (0.9-3.2) K/mm3 [place] # (Auto) (0.1-0.6) K/mm3 Eos # (Auto) (0-0.3) K/mm3 Baso # (Auto) (0.0-0.1) K/mm3 Abs Immat Gran (auto) (0.00-0.031) K/mm3 Absolute Neuts (auto) (1.3-6.7) K/mm3 Absolute Nucleated RBC (0.0-0.012) K/mm3 Nucleated RBC % (0.0-0.2) % % Immature Plt Fraction PT (11.1-14.7) Seconds INR APTT (22.3-36.8) Seconds Sodium (137-145) mmol/L Potassium (3.4-5.0) mmol/L Chloride (98-107) mmol/L Carbon Dioxide (22-30) mmol/L Anion Gap (4-12) mmol/L BUN (9-20) mg/dL Creatinine (0.7-1.3) mg/dL Estim Creat Clear Calc ml/min Estimated GFR (59 - ) Glucose (65-110) mg/dL Calcium (8.4-10.2) mg/dL Total Bilirubin (0.2-1.3) mg/dL AST (17-59) U/L ALT (6-50) U/L Alkaline Phosphatase (38-126) U/L Troponin I < 0.012 (0.000-0.034) ng/mL NT-Pro-B Natriuret Pep (19.9-100) pg/mL Total Protein 7.0 (6.3-8.2) g/dL Albumin 4.1 4.2 (3.5-5.1) g/dL Lipase 318 H (23-300) U/L <Elda Murphy PA-C - Last Filed: 07/30/24 23:06> Imaging Data Radiologist's impression: ITS Impressions Chest X-Ray 07/30/24 18:49 IMPRESSION: 1. Cardiomegaly. <Elda Murphy PA-C - Last Filed: 07/30/24 23:06> ECG Data EKG #1: ECG completion date: 07/30/24 <Elda Murphy PA-C - Last Filed: 07/30/24 23:06> EKG Interpretation: not applicable (atrial pacemaker) <Elda Murphy PA-C - Last Filed: 07/30/24 23:06> Critical Care Time Critical Care Time Critical Care Time: No <Elda Murphy PA-C - Last Filed: 07/30/24 23:06> Discharge Plan Discharge Clinical Impression: Supratherapeutic INR Chest pain Qualifiers: Chest pain type: unspecified Qualified Code(s): R07.9 - Chest pain, unspecified <Nate Alston APRN - Last Filed: 07/30/24 18:07> Patient Disposition: Home, Self-Care <Nate Alston APRN - Last Filed: 07/30/24 18:07> Condition: Stable <Nate Alston APRN - Last Filed: 07/30/24 18:07> Instructions: Chest Pain (ED) <Nate Alston APRN - Last Filed: 07/30/24 18:07> Additional Instructions: Return to the Emergency Department if you experience fever, worsening chest pain, shortness of breath, or any other symptoms that are concerning to you Do not take your next dose of Warfarin, your INR was a little high today. You may continue your usual dose after that. I sent an order for you to repeat your INR outpatient in the next couple of days at a lab of your choosing Follow up with your buckram sewer for further care. Call in the morning to make an appointment <Nate Alston APRN - Last Filed: 07/30/24 18:07> Patient Language: [place] <Nate Alston APRN - Last Filed: 07/30/24 18:07> Prescriptions: No Action isosorbide mononitrate 60 mg tablet extended release 24 hr 60 mg PO QAM donepezil [Aricept] 10 mg tablet 10 mg PO DAILY Qty: 90 2RF metoprolol succinate 50 mg tablet extended release 24 hr 50 mg PO DAILY Rx Instructions: TAKE 1 TABLET BY MOUTH IN THE MORNING metformin 1,000 mg tablet 1,000 mg PO BID Rx Instructions: TAKE 1 TABLET BY MOUTH TWICE DAILY WITH MORNING MEAL AND WITH EVENING MEAL rosuvastatin 10 mg tablet 10 mg PO DAILY Rx Instructions: Take 1 tablet by mouth once daily glipizide 5 mg tablet 5 mg PO DAILY warfarin 4 mg tablet See Rx Instructions .ROUTE .COMPLEX Qty: 48 2RF Dose Instruction: TAKE 1 TABLET BY MOUTH 4 TIMES A WEEK ON TUESDAY, TUESDAY, TUESDAY AND TUESDAY Rx Instructions: TAKE 1 TABLET BY MOUTH 5 TIMES A WEEK ON TUESDAY, TUESDAY, TUESDAY,TUESDAY AND TUESDAY warfarin 6 mg tablet 6 mg PO 2XW Qty: 10 0RF Rx Instructions: Tuesday, Tuesday aspirin 81 mg Tablet,Delayed Release (Dr/Ec) 81 mg PO DAILY losartan 100 mg tablet 100 mg PO DAILY Qty: 90 2RF <Nate Alston APRN - Last Filed: 07/30/24 18:07> Other Ambulatory Orders: Prothrombin Time INR (Routine) Timeframe: 3 Days Location: Determined by Patient Ordered By: Elda Murphy <Nate Alston APRN - Last Filed: 07/30/24 18:07> Follow-up/Referrals: Lee Rodrigues MD [Physician] - Lee Branch MD [Primary Care Provider] - <Nate Alston APRN - Last Filed: 07/30/24 18:07> Quality HEART score for chest pain patients History: moderately suspicious <Elda Murphy PA-C - Last Filed: 07/30/24 23:06> ECG: normal <Elda Murphy PA-C - Last Filed: 07/30/24 23:06> Age: > or = to 65 years <Elda Murphy PA-C - Last Filed: 07/30/24 23:06> Risk factors: > or = to 3 risk factors of atherosclerotic disease <Elda Murphy PA-C - Last Filed: 07/30/24 23:06> Troponin: < or = to 1x normal limit <Elda Murphy PA-C - Last Filed: 07/30/24 23:06> Heart score: 5 <Elda Murphy PA-C - Last Filed: 07/30/24 23:06>
[2024-07-30 18:39] LABS: Basophils Absolute Auto 0.1 K/mm3 (0.0-0.1); Basophils Percent Auto 0.5 % (0.2-1.2); Eosinophils Absolute Auto 0.2 K/mm3 (0-0.3); Eosinophils Percent Auto 1.8 % (0-4.4); Hematocrit 41.5 % (42.0-52.0); Hemoglobin 13.7 g/dL (14.0-18.0); Immature Granulocyte Absolute 0.03 K/mm3 (0.00-0.031); Immature Granulocyte Percent A 0.3 % (0-0.5); Lymphocytes Absolute Auto 2.16 K/mm3 (0.9-3.2); Lymphocytes Percent Auto 23.1 % (18.3-44.2); Mean Corpuscular Hemoglobin 28.2 pg (26-34); Mean Corpuscular Volume 85.6 fl (80-100); Mean Platelet Volume 11.8 fl (7.4-10.4); Monocytes Absolute Auto 0.8 K/mm3 (0.1-0.6); Monocytes Percent Auto 8.9 % (2.6-8.5); Neutrophils Absolute Auto 6.1 K/mm3 (1.3-6.7); Neutrophils Percent Auto 65.4 % (45.5-73.1); Platelet Count Result 158 k/mm3 (150-375); Red Blood Count 4.85 M/mm3 (4.6-6.20); Red Cell Distribution Width 14.6 % (11.5-14.5); White Blood Count 9.4 K/mm3 (4.5-10.0)
[2024-07-30 18:50] LABS: Alanine Aminotransferase 38 U/L (6-50); Albumin Level 4.2 g/dL (3.5-5.1); Alkaline Phosphatase 64 U/L (38-126); Anion Gap 6 mmol/L (4-12); Aspartate Amino Transferase 44 U/L (17-59); Bilirubin,Total 0.7 mg/dL (0.2-1.3); Blood Urea Nitrogen 24 mg/dL (9-20); Carbon Dioxide 25 mmol/L (22-30); Chloride 107 mmol/L (98-107); Estimated CRCL calculation 82 ml/min; Estimated Glomerular Filt Rate > 60; Glucose 219 mg/dL (65-110); Potassium 4.1 mmol/L (3.4-5.0); Sodium 138 mmol/L (137-145)
[2024-07-30 18:51] VITALS: BP 112/66; PULSE 72; RESP 16; O2SAT 98
[2024-07-30 18:51] LABS: Alanine Aminotransferase 37 U/L (6-50); Albumin Level 4.1 g/dL (3.5-5.1); Alkaline Phosphatase 65 U/L (38-126); Anion Gap 7 mmol/L (4-12); Aspartate Amino Transferase 45 U/L (17-59); Bilirubin,Total 0.7 mg/dL (0.2-1.3); Blood Urea Nitrogen 24 mg/dL (9-20); Carbon Dioxide 24 mmol/L (22-30); Chloride 106 mmol/L (98-107); Estimated CRCL calculation 82 ml/min; Estimated Glomerular Filt Rate > 60; Glucose 219 mg/dL (65-110); INR 4.1; Lipase 318 U/L (23-300); Partial Thromboplastin Time 37.6 Seconds (22.3-36.8); Potassium 4.1 mmol/L (3.4-5.0); Prothrombin Time 40.5 Seconds (11.1-14.7); Sodium 137 mmol/L (137-145)
[2024-07-30] MEDS: ASPIRIN 81 MG CHEWABLE TABLET 324 MG PO (18:58)
[2024-07-30 19:01] LABS: NT Pro B Type Natriuretic Pept 182 pg/mL (19.9-100); Troponin I < 0.012 ng/mL (0.000-0.034)
[2024-07-30 19:02] LABS: Troponin I < 0.012 ng/mL (0.000-0.034)
[2024-07-30] MEDS: NITROGLYCERIN SL 0.4 MG TABLET SUBLINGUAL (19:21)
--- NOTE | 2024-07-30 20:20 | PC.NURSE ---
First nitro given at 192 w/ no relief. 2nd nitro given 1925, by 1930 pt states the cp has resolved.
[2024-07-30 20:39] VITALS: BP 120/61; PULSE 72; RESP 15; O2SAT 97
--- NOTE | 2024-07-30 21:30 | ECG_ITS ---
Test Date: 2024-07-30 21:33:50 Measurements Intervals [place] Rate: 69 P: 214 WY: 178 QRS: -68 QRSD: 204 T: 109 QT: 485 QTc: 523 Interpretive Statements ELECTRONIC ATRIAL PACEMAKER ELECTRONIC VENTRICULAR PACEMAKER ABNORMAL RHYTHM ECG Compared to ECG 07/30/2024 18:32:54 No significant changes Electronically Signed On 07-31-2024 16:11:48 FERRY CAPTAIN by Fidelina Ward M.D.
--- NOTE | 2024-07-30 21:32 | PC.NURSE ---
2104 pt states cp is now 6/10 but manageable. 3rd nitro given w/ no further relief.
[2024-07-30 21:52] LABS: Troponin I < 0.012 ng/mL (0.000-0.034)
[2024-07-30 22:19] VITALS: BP 130/64; PULSE 70; RESP 15; O2SAT 98
[2024-07-30 23:18] VITALS: BP 141/64; PULSE 72; RESP 14; O2SAT 97
== END 2024-07-30 23:21 | disposition home or self-care (01) ==
PROVIDERS: Emergency Medicine; Nurse Practitioner Family; Emergency Provider Physician Assistant; PCP Emergency Medicine
DX: R07.9 Chest pain, unspecified (principal); R79.1 Abnormal coagulation profile; R06.02 Shortness of breath; I11.9 Hypertensive heart disease without heart failure; I25.10 Atherosclerotic heart disease of native coronary artery without angina pectoris; E11.9 Type 2 diabetes mellitus without complications; E78.5 Hyperlipidemia, unspecified; Z95.0 Presence of cardiac pacemaker; Z95.2 Presence of prosthetic heart valve; Z87.442 Personal history of urinary calculi; F17.290 Nicotine dependence, other tobacco product, uncomplicated; R94.31 Abnormal electrocardiogram [ECG] [EKG]; I51.7 Cardiomegaly; Z79.01 Long term (current) use of anticoagulants; Z79.84 Long term (current) use of oral hypoglycemic drugs; Z79.899 Other long term (current) drug therapy; Z79.82 Long term (current) use of aspirin
CPT/HCPCS: 36415; 71046; 80053; 83690; 83880; 84484; 85025; 85610; 85730; 93005; 96374; 99284; A9270

== ENCOUNTER 2024-11-30 13:08 | Outpatient (CLI) | payer MEDICARE, SELFPAY ==
--- OUTSIDE RECORDS SUMMARY | 2024-11-30 13:13 | XMS_ITS | Encounter Summary ---
Author Organization [facility] Address [address] [place] [address] Care Team Providers Care Treasury Assistant Name Role Phone Unavailable Primary Care Provider Unavailabl e Encounter Details Date Type Department Care Team (Late st Contact Info) Description 12/23/2006 Outpatient Historical [facility] Cardiovas and Thor Surg at [facility] Heart [address] [address] Manolo Parisi MD [address] [place] [phone] Social History Tobacco Use Types Packs/Day Years Used Date Smoking Tobacco: Never Assessed Sex and Gender Information Value Date Recorded Sex Assigned at Not on file 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
--- OUTSIDE RECORDS SUMMARY | 2024-11-30 13:13 | XMS_ITS | Encounter Summary ---
Author Organization [facility] Address [address] [place] [address] Care Team Providers Care Physical Security Specialist Name Role Phone Unavailable Primary Care Provider Unavailabl e Encounter Details Date Type Department Care Team (Late st Contact Info) Description 12/01/2006 Outpatient Historical [facility] Cardiovas and Thor Surg at [facility] Heart [address] [address] Manolo Parisi MD [address] [place] [phone] Social History Tobacco Use Types Packs/Day Years Used Date Smoking Tobacco: Never Assessed Sex and Gender Information Value Date Recorded Sex Assigned at Not on file 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
--- OUTSIDE RECORDS SUMMARY | 2024-11-30 13:13 | XMS_ITS | Continuity of Care Document ---
Author Name Jerson Maradiaga Address [address] [place], [place] [id number] [place] [address] Organization Unknown Address [address] [place], [place] [id number] [place] [address] Problems
--- OUTSIDE RECORDS SUMMARY | 2024-11-30 13:13 | XMS_ITS | Referral Summary ---
Author Organization [facility] [address] [facility] [address] Address [address] [facility] [address] [place] [address] Care Team Providers Care Head Of Marketing Adometry Name Role Phone Lee Branch MD Primary Care Provide r Encounters Date Type Department Care Team Description 10/11/2024 Orders Only [facility] Cardiology [address] [place] [address] [place] [phone] Lee Rodrigues MD Complete atrioventricular block (HCC) (Primary Dx); Presence of cardiac pacemaker 10/11/2024 Telephone [facility] Cardiology [address] [place] [phone] Lee Rodrigues MD from Last 3 Months Allergies No known active allergies Medications aspirin (ASPIRIN LOW DOSE) 81 mg tablet take 1 Tablet (81MG) by oral route every day 0 3 Active metFORMIN (GLUCOPHAGE) 1,000 mg tablet take 1 tablet by oral route 2 times every day with morning and evening meals 0 4 Active glyBURIDE (DIABETA) 2.5 mg tablet take 1 tablet by oral route every day before meals 0 0 4 Active metoprolol XL (TOPROL-XL) 50 mg 24 hr tablet TAKE 1 TABLET BY MOUTH ONCE DAILY IN THE CADDIE BEFORE BREAKFAST 90 tablet 3 9 Active nitroglycerin (NITROSTAT) 0.4 mg SL tabletIndication s:acute episode of anginal pain Place 1 tablet (0.4 mg total) under the tongue every 5 (five) minutes as needed for chest pain May repeat dose q 5 min, up to 3 doses total 100 tablet 3 0 Active rosuvastatin (CRESTOR) 10 mg tablet Take 1 tablet (10 mg total) by mouth daily Active warfarin (COUMADIN) 4 mg tablet Take 1 tablet (4 mg total) by mouth as directed Take one tablet every Sat, Sun, Tue or as directed. 20 tablet 2 Active warfarin (COUMADIN) 6 mg tablet TAKE 1 TABLET BY MOUTH ONCE DAILY ON TUESDAY, TUESDAY, TUESDAY AND TUESDAY 125 tablet 3 Active losartan (COZAAR) 50 mg tablet TAKE 1 TABLET BY MOUTH ONCE DAILY IN THE MORNING . APPOINTMENT REQUIRED FOR FUTURE REFILLS 3 Active isosorbide mononitrate ER (IMDUR) 60 mg 24 hr tablet Take 1 tablet by mouth once daily 90 tablet 5 Active Active Problems Problem Noted Date Diagnosed Date Chronic anticoagulation 01/19/2021 Coronary artery disease invo lving chenega coronary artery of [place] heart without angina pectoris 05/05/2017 Complete heart block 05/05/2017 Presence of cardiac pacemaker 05/05/2017 Overview (01/24/2018): Medtronic Dual Pacemaker. Dx; CHB. DOI 10/27/2015. Carelink remote monitoring Q3 mo, office pacer checks Q1 yr. 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 History of open heart surgery 10/15/2015 Complete atrioventricular block 10/15/2015 History of coronary artery stent placement 10/14 Social History Tobacco Use Types Packs/Day Years Used Date Smoking Tobacco: Some Days Pipe Smokeless Tobacco: Never Tobacco Cessation:Ready to Q uit: Not Asked; Counseling Given: Not Answered Alcohol Use Standard Drinks/Week Comments Yes 0 (1 standard drink = 0.6 oz pur e alcohol) Sex and Gender Information Value Date Recorded Sex Assigned at Not on file Legal Sex Male 11:21 AM 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 Gender Identity Not on file Sexual Orientation Not on file Last Filed Vital Signs Vital Sign Reading Time Taken Comments Blood Pressure 116/70 08/27/2024 9:58 AM 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 Pulse 91 08/27/2024 9:58 AM 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 Temperature - - Respiratory Rate 16 05/05/2017 11:4 2 AM CDT Oxygen Saturation 98% 08/27/2024 9:58 AM 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 Inhaled Oxygen Concentration - - Weight 106.5 kg (234 lb 14.4 oz) 08/27/2024 9:58 AM 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 Height 177.8 cm (5' 10 ) 08/27/2024 9:58 AM 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 Body Mass Index 33.7 08/27/2024 9:58 AM 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 Plan of Treatment Not on file Medical Devices Implanted Type Area Recovery Analyst Device Identifier Shelf Expiration Date Model / Serial / Lot Pacemaker-2015 Implanted:10/26 (Quantity not on file) Pacemaker Chest Medtronic CHB Insurance [employer] MEDICARE GOLD [employer] MEDICARE HMO Care Teams Head Of Marketing Adometry Relationship Specialty Start Date End Date Lee Branch MD [address] [place] [address] PCP - General 11/12/16
--- OUTSIDE RECORDS SUMMARY | 2024-11-30 13:13 | XMS_ITS | Encounter Summary ---
Author Organization [employer] Address [address] [place] [address] Care Team Providers Care Pick Pulling Machine Tender Name Role Phone Unavailable Primary Care Provider Unavailabl e Encounter Details Date Type Department Care Team (Latest Contact Info) Description 11/02/2006 Outpatient Historical [facility] INSTALLER Lee Vanegas MD [address] [facility] [address] [place] [address] Other Chest Pain (Primary Dx) Social History Tobacco Use Types Packs/Day Years Used Date Smoking Tobacco: Never Assessed Sex and Gender Information Value Date Recorded Sex Assigned at Not on file Legal Sex Male 3:01 AM SHIPPING HAND Gender Identity Not on file Sexual Orientation Not on file documented as of this encounter Plan of Treatment Not on file documented as of this encounter Visit Diagnoses Diagnosis Other chest pain- Primary documented in this encounter
--- OUTSIDE RECORDS SUMMARY | 2024-11-30 13:13 | XMS_ITS | Encounter Summary ---
Author Organization [facility] Address 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
--- OUTSIDE RECORDS SUMMARY | 2024-11-30 13:13 | XMS_ITS | Encounter Summary ---
Author Organization [facility] Address 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
--- OUTSIDE RECORDS SUMMARY | 2024-11-30 13:13 | XMS_ITS | Encounter Summary ---
Author Organization [facility] Address [address] [address] Care Team Providers Care Certified Registered Nurse Practitioner Name Role Phone Lee Branch MD Primary Care Provide r Lee Branch MD Primary Care Provide r Encounter Details Date Type Department Care Team (Late st Contact Info) Description 10/16/2016 Orders Only [facility] ProviderYasmine MD [address] [place] [phone] Social History Tobacco Use Types Packs/Day Years Used Date Smoking Tobacco: Former Cigarettes Q uit: 08/15/2007 Alcohol Use Standard Drinks/Week Comments Yes 0 (1 standard drink = 0.6 oz pur e alcohol) Sex and Gender Information Value Date Recorded Sex Assigned at Not on file Legal Sex Male 11:21 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 Historical Provider [facility] OSKAR HUANG Final Result documented in this encounter Visit Diagnoses Not on filedocumented in this encounter Care Teams Certified Registered Nurse Practitioner Relationship Specialty Start Date End Date Lee Branch MD [address] [place] [address] PCP - General 11/12/16 Lee Branch MD [address] [place] [address] PCP - General 12/05/14 11/11/16 documented as of this encounter
--- OUTSIDE RECORDS SUMMARY | 2024-11-30 13:13 | XMS_ITS | Encounter Summary ---
Author Organization [employer] Address [address] [place] [address] Care Team Providers Care Bull Ladle Tender Name Role Phone Unavailable Primary Care Provider Unavailabl e Encounter Details Date Type Department Care Team (Late st Contact Info) Description 2006 Outpatient Historical [facility] Support Serv. ([facility]) [address] 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
--- OUTSIDE RECORDS SUMMARY | 2024-11-30 13:13 | XMS_ITS | Clinical Summary ---
Author Organization [email or web address] Address [address] Attn: Epic Prelude ADT [place] [id number] Care Team Providers Care Director Of Strategic Programs Name Role Phone Unavailable Primary Care Provider Unavailabl e Social History Tobacco Use Types Packs/Day Years Used Date Smoking Tobacco: Never Assessed Sex and Gender Information Value Date Recorded Sex Assigned at Not on file Legal Sex Male 3:01 AM [employer] Gender Identity Not on file Sexual Orientation Not on file Plan of Treatment Health Maintenance Due Date Last Done Comments DTAP/TDAP/TD VACCINES (1 - Tdap) 1977 COLORECTAL SCREENING 12/17/2003 Colorectal Cancer Screening 12/17/2003 FIT-DNA Q 3 years 12/17/2003 FIT/FOBT Q 1 year 12/17/2003 Flex Sig/CT Colonography Q 5 years 12/17/2003 PNEUMOCOCCAL VACCINE 50+ YEARS (1 of 1 - PCV) 12/17/19 09 ZOSTER VACCINE (1 of 2) 2008 INFLUENZA VACCINE (#1) 2024 RSV VACCINE (60+ or ) (1 - 1-dose 75+ series) 2033
--- OUTSIDE RECORDS SUMMARY | 2024-11-30 13:13 | XMS_ITS | Encounter Summary ---
Author Organization [facility] Address 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 Role Phone Unavailable Primary Care Provider Unavailabl e Encounter Details Date Type Department Care Team (Latest Contact Info) Description 12/23/2006 Inpatient Historical [facility] C[facility] MANAGER Manolo Parisi MD [address] [address] Aortic Valve Disorders (Primary Dx) Social History Tobacco Use Types Packs/Day Years Used Date Smoking Tobacco: Never Assessed Sex and Gender Information Value Date Recorded Sex Assigned at Not on file Legal Sex Male 3:01 AM BINMAN Gender Identity Not on file Sexual Orientation Not on file documented as of this encounter Plan of Treatment Not on file documented as of this encounter Procedures Procedure Name Priority Date/Time Associated Diagnosis Comments POC GLUCOSE Routine 12/29/2006 7:42 AM CDT PROTIME-INR Routine 12/29/2006 5:47 AM CDT BASIC METABOLIC PANEL Routine 12/29/2006 5:47 AM CDT POC GLUCOSE Routine 12/28/2006 8:49 PM CDT POC GLUCOSE Routine 12/28/2006 4:18 PM CDT POC GLUCOSE Routine 12/28/2006 11:19 AM CDT POC GLUCOSE Routine 12/28/2006 7:09 AM CDT PROTIME-INR Routine 12/28/2006 5:35 AM CDT POC GLUCOSE Routine 12/27/2006 8:12 PM CDT POTASSIUM LEVEL Routine 12/27/2006 5:53 PM CDT MAGNESIUM LEVEL Routine 12/27/2006 5:53 PM CDT POC GLUCOSE Routine 12/27/2006 4:12 PM CDT POC GLUCOSE Routine 12/27/2006 7:18 AM CDT CBC WITH DIFFERENTIAL Routine 12/27/2006 5:00 AM CDT CBC WITH DIFFERENTIAL Routine 12/27/2006 5:00 AM CDT PROTIME-INR Routine 12/27/2006 5:00 AM CDT BASIC METABOLIC PANEL Routine 12/27/2006 5:00 AM CDT POC GLUCOSE Routine 12/26/2006 8:19 PM CDT PROTIME-INR Routine 12/26/2006 7:35 AM CDT POC GLUCOSE Routine 12/25/2006 8:22 PM CDT POC GLUCOSE Routine 12/25/2006 4:18 PM CDT POC GLUCOSE Routine 12/25/2006 11:04 AM CDT PROTIME-INR Routine 12/25/2006 8:00 AM CDT POC GLUCOSE Routine 12/25/2006 6:20 AM CDT CBC WITH DIFFERENTIAL Routine 12/25/2006 4:00 AM CDT CBC WITH DIFFERENTIAL Routine 12/25/2006 4:00 AM CDT BASIC METABOLIC PANEL Routine 12/25/2006 4:00 AM CDT POC GLUCOSE Routine 12/25/2006 12:01 AM CDT POC GLUCOSE Routine 12/24/2006 7:51 PM CDT POC GLUCOSE Routine 12/24/2006 3:56 PM CDT POC GLUCOSE Routine 12/24/2006 12:35 PM CDT CVR ONLY, CKMB/CK Routine 12/24/2006 11: 32 AM CDT POC GLUCOSE Routine 12/24/2006 9:05 AM CDT POC GLUCOSE Routine 12/24/2006 4:18 AM CDT CVR ONLY, CKMB/CK Routine 12/24/2006 4:0 0 AM CDT PT AND APTT Routine 12/24/2006 4:00 AM CDT CBC WITH DIFFERENTIAL Routine 12/24/2006 4:00 AM CDT CBC WITH DIFFERENTIAL Routine 12/24/2006 4:00 AM CDT COMPREHENSIVE METABOLIC PANEL Routine 12/24/2006 4:00 AM CDT POC GLUCOSE Routine 12/24/2006 3:18 AM CDT POC GLUCOSE Routine 12/24/2006 1:13 AM CDT POC GLUCOSE Routine 12/24/2006 12:02 AM CDT POC GLUCOSE Routine 12/23/2006 10:58 PM CDT CVR ONLY, CKMB/CK Routine 12/23/2006 10: 25 PM CDT POC GLUCOSE Routine 12/23/2006 9:12 PM CDT POC, BLOOD GASES Routine 12/23/2006 8:48 PM CDT POC GLUCOSE Routine 12/23/2006 8:05 PM CDT POC GLUCOSE Routine 12/23/2006 6:53 PM CDT POC GLUCOSE Routine 12/23/2006 5:17 PM CDT POC GLUCOSE Routine 12/23/2006 3:42 PM CDT CK TOTAL, RELATIVE INDEX Routine 12/23/2006 12:50 PM CDT CKMB W/REFLEX CK Routine 12/23/2006 12:5 0 PM CDT TROPONIN (W/REFLEX CKMB/CK) Routine 12/23/2006 12:50 PM CDT CBC WITH DIFFERENTIAL Routine 12/23/2006 12:50 PM CDT CBC WITH DIFFERENTIAL Routine 12/23/2006 12:50 PM CDT PTT Routine 12/23/2006 12:50 PM CDT PROTIME-INR Routine 12/23/2006 12:50 PM CDT MAGNESIUM LEVEL Routine 12/23/2006 12:50 PM CDT BASIC METABOLIC PANEL Routine 12/23/2006 12:50 PM CDT POC, BLOOD GASES Routine 12/23/2006 12:2 0 PM CDT POC GLUCOSE Routine 12/23/2006 11:23 AM CDT POC, BLOOD GASES Routine 12/23/2006 11:2 2 AM CDT POC, BLOOD GASES Routine 12/23/2006 10:4 0 AM CDT POC, BLOOD GASES Routine 12/23/2006 10:0 2 AM CDT POC, BLOOD GASES Routine 12/23/2006 9:31 AM CDT POC, BLOOD GASES Routine 12/23/2006 9:04 AM CDT POC, BLOOD GASES Routine 12/23/2006 9:00 AM CDT POC, BLOOD GASES Routine 12/23/2006 7:58 AM CDT URINALYSIS WITH REFLEX CULTURE Routine 2006 1:49 PM CDT PT AND APTT Routine 2006 1:49 PM CDT CBC WITH DIFFERENTIAL Routine 2006 1:49 PM CDT CBC WITH DIFFERENTIAL Routine 2006 1:49 PM CDT URINALYSIS W/REFLEX MICROSCOPIC Routine 2006 1:49 PM CDT COMPREHENSIVE METABOLIC PANEL Routine 2006 1:49 PM CDT documented in this encounter Results * (ABNORMAL) POC GLUCOSE (12/29/2006 7:42 AM CDT) GLUCOSE POC 131(H) 65 - 99 mg/dL INTERFACE SYSTEM 12/29/2006 7:42 AM CDT Manolo Parisi MD POINT OF CARE TESTING Edited INTERFACE SYSTEM Refer to clinic/hospital department * (ABNORMAL) BASIC METABOLIC PANEL (12/29/2006 5:47 AM CDT) GLUCOSE 96 65 - 99 mg/dL INTERFACE SYSTEM CREATININE 0.76 0.67 - 1.17 mg/dL INTERFACE SYSTEM CALCIUM 8.6 8.4 - 10.2 mg/dL INTERFACE SYSTEM BUN 14 6 - 20 mg/dL INTERFACE SYSTEM SODIUM 134(L) 135 - 145 mmol/L INTERFACE SYSTEM POTASSIUM 4.3 3.5 - 4.9 mmol/L INTERFACE SYSTEM CHLORIDE 96 96 - 108 mmol/L INTERFACE SYSTEM CO2 28 22 - 30 mmol/L INTERFACE SYSTEM GFR, >60 >=60 mL/min/1. 7 sq meter INTERFACE SYSTEM GFR >60 >=60 mL/min/1. 7 sq meter INTERFACE SYSTEM Comment: Estimated GFR rate interpretative information for both Americans and non- Americans is available on the [facility] Intranet at: [email or web address] Select: Lab Policies and Procedures Select: Reference Ranges - GFR 12/29/2006 5:47 AM CDT Manolo Parisi MD CHEMISTRY ORDERABLES Edited Performing Organization Address [facility] de Phone Number INTERFACE SYSTEM Refer to clinic/hospital department * (ABNORMAL) PROTIME-INR (12/29/2006 5:47 AM CDT) PROTIME 21.1(H) 12.7 - 15.1 Seconds INTERFACE SYSTEM INR 1.8(H) 0.9 - 1.1 INTERFACE SYSTEM Comment: INR Therapeutic Range: Adult: 2.0 - 3.0 for pulmonary embolism or prophylaxis against venous thrombosis or systemic embolization. 2.0 - 3.0 for patients with tissue heart valves. 2.5 - 3.5 for patients with mechanical heart valves or post DE. Pediatric (12 years and under): 1.5 - 3.0 Although the target range in children is not well established , INR values of 1.5 - 3.0 are recommended for most patients. Higher values have been used in children with prosthetic cardiac valves and hereditary clotting disorders. (<3 days) therapeutic ranges have not been established. 12/29/2006 5:47 AM CDT Manolo Parisi MD HEMATOLOGY ORDERABLES Edited Performing Organization Address [facility]/ZIP Co de Phone Number INTERFACE SYSTEM Refer to clinic/hospital department * (ABNORMAL) POC GLUCOSE (12/28/2006 8:49 PM CDT) GLUCOSE POC 135(H) 65 - 99 mg/dL INTERFACE SYSTEM 12/28/2006 8:49 PM CDT Edmellisa Parisi MD POINT OF CARE TESTING Edited Performing Organization Address [facility] Phone Number INTERFACE SYSTEM Refer to clinic/hospital department * (ABNORMAL) POC GLUCOSE (12/28/2006 4:18 PM CDT) GLUCOSE POC 103(H) 65 - 99 mg/dL INTERFACE SYSTEM 12/28/2006 4:18 PM CDT Manolo Parisi MD POINT OF CARE TESTING Edited Performing Organization Address [facility] Phone Number INTERFACE SYSTEM Refer to clinic/hospital department * (ABNORMAL) POC GLUCOSE (12/28/2006 11:19 AM CDT) GLUCOSE POC 147(H) 65 - 99 mg/dL INTERFACE SYSTEM 12/28/2006 11:1 9 AM CDT Manolo Parisi MD POINT OF CARE TESTING Edited Performing Organization Address [facility] Phone Number INTERFACE SYSTEM Refer to clinic/hospital department * (ABNORMAL) POC GLUCOSE (12/28/2006 7:09 AM CDT) GLUCOSE POC 123(H) 65 - 99 mg/dL INTERFACE SYSTEM 12/28/2006 7:09 AM CDT Manolo Parisi MD POINT OF CARE TESTING Edited Performing Organization Address [facility] de Phone Number INTERFACE SYSTEM Refer to clinic/hospital department * (ABNORMAL) PROTIME-INR (12/28/2006 5:35 AM CDT) PROTIME 17.3(H) 12.7 - 15.1 Seconds INTERFACE SYSTEM INR 1.4(H) 0.9 - 1.1 INTERFACE SYSTEM Comment: INR Therapeutic Range: Adult: 2.0 - 3.0 for pulmonary embolism or prophylaxis against venous thrombosis or systemic embolization. 2.0 - 3.0 for patients with tissue heart valves. 2.5 - 3.5 for patients with mechanical heart valves or post DE. Pediatric (12 years and under): 1.5 - 3.0 Although the target range in children is not well established , INR values of 1.5 - 3.0 are recommended for most patients. Higher values have been used in children with prosthetic cardiac valves and hereditary clotting disorders. (<3 days) therapeutic ranges have not been established. 12/28/2006 5:35 AM CDT Manolo Parisi MD HEMATOLOGY ORDERABLES Edited Performing Organization Address [facility] Phone Number INTERFACE SYSTEM Refer to clinic/hospital department * (ABNORMAL) POC GLUCOSE (12/27/2006 8:12 PM CDT) GLUCOSE POC 138(H) 65 - 99 mg/dL INTERFACE SYSTEM 12/27/2006 8:12 PM CDT Manolo Parisi MD POINT OF CARE TESTING Edited Performing Organization Address [facility] Phone Number INTERFACE SYSTEM Refer to clinic/hospital department * POTASSIUM LEVEL (12/27/2006 5:53 PM CDT) POTASSIUM 4.2 3.5 - 4.9 mmol/L INTERFACE SYSTEM 12/27/2006 5:53 PM CDT Manolo Parisi MD CHEMISTRY ORDERABLES Edited Performing Organization Address [facility] Phone Number INTERFACE SYSTEM Refer to clinic/hospital department * MAGNESIUM LEVEL (12/27/2006 5:53 PM CDT) MAGNESIUM 2.1 1.5 - 2.5 mg/dL INTERFACE SYSTEM 12/27/2006 5:53 PM CDT Manolo Parisi MD CHEMISTRY ORDERABLES Edited Performing Organization Address [facility] de Phone Number INTERFACE SYSTEM Refer to clinic/hospital department * POC GLUCOSE (12/27/2006 4:12 PM CDT) GLUCOSE POC 97 65 - 99 mg/dL INTERFACE SYSTEM 12/27/2006 4:12 PM CDT Manolo Parisi MD POINT OF CARE TESTING Edited Performing Organization Address [facility] de Phone Number INTERFACE SYSTEM Refer to clinic/hospital department * (ABNORMAL) POC GLUCOSE (12/27/2006 7:18 AM CDT) COMMENT, GLU POC Notified RN INTERFACE SYSTEM GLUCOSE POC 103(H) 65 - 99 mg/dL INTERFACE SYSTEM 12/27/2006 7:18 AM CDT Manolo Parisi MD POINT OF CARE TESTING Edited Performing Organization Address [facility] de Phone Number INTERFACE SYSTEM Refer to clinic/hospital department * (ABNORMAL) CBC WITH DIFFERENTIAL (12/27/2006 5:00 AM CDT) NEUTROPHILS 70 45 - 70 % INTERFAC E SYSTEM LYMPHOCYTES 17 16 - 45 % INTERFAC E SYSTEM MONOCYTES 10 3 - 13 % INTERFACE SYSTEM EOSINOPHILS 3 0 - 7 % INTERFAC E SYSTEM BASOPHILS 0 0 - 2 % INTERFACE SYSTEM NEUTROPHIL ABSOLUTE 7.31(H) 1.90 - 7.00 K/uL INTERFACE SYSTEM LYMPHOCYTE ABSOLUTE 1.79 0.70 - 4.50 K/uL INTERFACE SYSTEM MONOCYTE ABSOLUTE 1.03 0.10 - 1.30 K/uL INTERFACE SYSTEM EOSINOPHIL ABSOLUTE 0.30 0.00 - 0.70 K/uL INTERFACE SYSTEM BASOPHILS ABSOLUTE 0.03 0.00 - 0.20 K/uL INTERFACE SYSTEM 12/27/2006 5:00 AM CDT Jose DE PAZ HEMATOLOGY ORDERABLES Edited Performing Organization Address [facility] de Phone Number INTERFACE SYSTEM Refer to clinic/hospital department * (ABNORMAL) CBC WITH DIFFERENTIAL (12/27/2006 5:00 AM CDT) WBC 10.5(H) 4.0 - 9.8 K/uL INTERFACE SYSTEM RBC 4.27(L) 4.50 - 5.40 M/uL INTERFACE SYSTEM HEMOGLOBIN 12.1(L) 13.6 - 16.5 g/dL INTERFACE SYSTEM HEMATOCRIT 36.6(L) 40.0 - 48.0 % INTERFACE SYSTEM MCV 85.7 82.0 - 99.0 fL INTERFACE SYSTEM MCH 28.3 27.2 - 32.6 pg INTERFACE SYSTEM MCHC 33.1 31.5 - 35.5 % INTERFACE SYSTEM RDW 14.6(H) 11.5 - 14.5 % INTERFACE SYSTEM RDW-STDEV 45.5 37.1 - 48.7 fL INTERFACE SYSTEM PLATELETS 162 140 - 350 K/uL INTERFACE SYSTEM MPV 10.9 9.3 - 12.4 fL INTERFACE SYSTEM 12/27/2006 5:00 AM CDT Jose DE PAZ HEMATOLOGY ORDERABLES Edited Performing Organization Address [facility] de Phone Number INTERFACE SYSTEM Refer to clinic/hospital department * PROTIME-INR (12/27/2006 5:00 AM CDT) PROTIME 14.7 12.7 - 15.1 Seconds INTERFACE SYSTEM INR 1.1 0.9 - 1.1 INTERFACE SYSTEM Comment: INR Therapeutic Range: Adult: 2.0 - 3.0 for pulmonary embolism or prophylaxis against venous thrombosis or systemic embolization. 2.0 - 3.0 for patients with tissue heart valves. 2.5 - 3.5 for patients with mechanical heart valves or post DE. Pediatric (12 years and under): 1.5 - 3.0 Although the target range in children is not well established , INR values of 1.5 - 3.0 are recommended for most patients. Higher values have been used in children with prosthetic cardiac valves and hereditary clotting disorders. (<3 days) therapeutic ranges have not been established. 12/27/2006 5:00 AM CDT Manolo Parisi MD HEMATOLOGY ORDERABLES Edited Performing Organization Address [facility] de Phone Number INTERFACE SYSTEM Refer to clinic/hospital department * (ABNORMAL) BASIC METABOLIC PANEL (12/27/2006 5:00 AM CDT) GLUCOSE 94 65 - 99 mg/dL INTERFACE SYSTEM CREATININE 0.72 0.67 - 1.17 mg/dL INTERFACE SYSTEM CALCIUM 8.1(L) 8.4 - 10.2 mg/dL INTERFACE SYSTEM BUN 16 6 - 20 mg/dL INTERFACE SYSTEM SODIUM 136 135 - 145 mmol/L INTERFACE SYSTEM POTASSIUM 4.2 3.5 - 4.9 mmol/L INTERFACE SYSTEM CHLORIDE 100 96 - 108 mmol/L INTERFACE SYSTEM CO2 32(H) 22 - 30 mmol/L INTERFACE SYSTEM GFR, >60 >=60 mL/min/1. 7 sq meter INTERFACE SYSTEM GFR >60 >=60 mL/min/1. 7 sq meter INTERFACE SYSTEM Comment: Estimated GFR rate interpretative information for both Americans and non- Americans is available on the [facility] Intranet at: [email or web address] Select: Lab Policies and Procedures Select: Reference Ranges - GFR 12/27/2006 5:00 AM CDT Jose DE PAZ CHEMISTRY ORDERABLES Edited Performing Organization Address [facility] Phone Number INTERFACE SYSTEM Refer to clinic/hospital department * (ABNORMAL) POC GLUCOSE (12/26/2006 8:19 PM CDT) GLUCOSE POC 122(H) 65 - 99 mg/dL INTERFACE SYSTEM 12/26/2006 8:19 PM CDT Manolo Parisi MD POINT OF CARE TESTING Edited Performing Organization Address [facility] Co de Phone Number INTERFACE SYSTEM Refer to clinic/hospital department * (ABNORMAL) PROTIME-INR (12/26/2006 7:35 AM CDT) PROTIME 16.2(H) 12.7 - 15.1 Seconds INTERFACE SYSTEM INR 1.3(H) 0.9 - 1.1 INTERFACE SYSTEM Comment: INR Therapeutic Range: Adult: 2.0 - 3.0 for pulmonary embolism or prophylaxis against venous thrombosis or systemic embolization. 2.0 - 3.0 for patients with tissue heart valves. 2.5 - 3.5 for patients with mechanical heart valves or post DE. Pediatric (12 years and under): 1.5 - 3.0 Although the target range in children is not well established , INR values of 1.5 - 3.0 are recommended for most patients. Higher values have been used in children with prosthetic cardiac valves and hereditary clotting disorders. (<3 days) therapeutic ranges have not been established. 12/26/2006 7:35 AM CDT Chalo Green Jr., MD HEMATOLOGY ORDERABLES E dited Performing Organization Address [facility] Phone Number INTERFACE SYSTEM Refer to clinic/hospital department * (ABNORMAL) POC GLUCOSE (12/25/2006 8:22 PM CDT) GLUCOSE POC 147(H) 65 - 99 mg/dL INTERFACE SYSTEM 12/25/2006 8:22 PM CDT Manolo Parisi MD POINT OF CARE TESTING Edited Performing Organization Address [facility] Phone Number INTERFACE SYSTEM Refer to clinic/hospital department * (ABNORMAL) POC GLUCOSE (12/25/2006 4:18 PM CDT) GLUCOSE POC 180(H) 65 - 99 mg/dL INTERFACE SYSTEM 12/25/2006 4:18 PM CDT Manolo Parisi MD POINT OF CARE TESTING Edited Performing Organization Address [facility] Phone Number INTERFACE SYSTEM Refer to clinic/hospital department * (ABNORMAL) POC GLUCOSE (12/25/2006 11:04 AM CDT) GLUCOSE POC 175(H) 65 - 99 mg/dL INTERFACE SYSTEM 12/25/2006 11:0 4 AM CDT Manolo Parisi MD POINT OF CARE TESTING Edited Performing Organization Address [facility] Phone Number INTERFACE SYSTEM Refer to clinic/hospital department * (ABNORMAL) PROTIME-INR (12/25/2006 8:00 AM CDT) PROTIME 16.8(H) 12.7 - 15.1 Seconds INTERFACE SYSTEM INR 1.3(H) 0.9 - 1.1 INTERFACE SYSTEM Comment: INR Therapeutic Range: Adult: 2.0 - 3.0 for pulmonary embolism or prophylaxis against venous thrombosis or systemic embolization. 2.0 - 3.0 for patients with tissue heart valves. 2.5 - 3.5 for patients with mechanical heart valves or post DE. Pediatric (12 years and under): 1.5 - 3.0 Although the target range in children is not well established , INR values of 1.5 - 3.0 are recommended for most patients. Higher values have been used in children with prosthetic cardiac valves and hereditary clotting disorders. (<3 days) therapeutic ranges have not been established. 12/25/2006 8:00 AM CDT Jose DE PAZ HEMATOLOGY ORDERABLES Edited Performing Organization Address [facility] Phone Number INTERFACE SYSTEM Refer to clinic/hospital department * (ABNORMAL) POC GLUCOSE (12/25/2006 6:20 AM CDT) GLUCOSE POC 164(H) 65 - 99 mg/dL INTERFACE SYSTEM 12/25/2006 6:20 AM CDT Manolo Parisi MD POINT OF CARE TESTING Edited Performing Organization Address [facility] Phone Number INTERFACE SYSTEM Refer to clinic/hospital department * (ABNORMAL) CBC WITH DIFFERENTIAL (12/25/2006 4:00 AM CDT) NEUTROPHILS 80(H) 45 - 70 % INTERFAC E SYSTEM LYMPHOCYTES 10(L) 16 - 45 % INTERFAC E SYSTEM MONOCYTES 10 3 - 13 % INTERFACE SYSTEM EOSINOPHILS 0 0 - 7 % INTERFAC E SYSTEM BASOPHILS 0 0 - 2 % INTERFACE SYSTEM NEUTROPHIL ABSOLUTE 15.02(H) 1.90 - 7.00 K/uL INTERFACE SYSTEM LYMPHOCYTE ABSOLUTE 1.96 0.70 - 4.50 K/uL INTERFACE SYSTEM MONOCYTE ABSOLUTE 1.84(H) 0.10 - 1.30 K/uL INTERFACE SYSTEM EOSINOPHIL ABSOLUTE 0.01 0.00 - 0.70 K/uL INTERFACE SYSTEM BASOPHILS ABSOLUTE 0.02 0.00 - 0.20 K/uL INTERFACE SYSTEM 12/25/2006 4:00 AM CDT us Chalo Green Jr., MD HEMATOLOGY ORDERABLES E dited Performing Organization Address [facility] de Phone Number INTERFACE SYSTEM Refer to clinic/hospital department * (ABNORMAL) CBC WITH DIFFERENTIAL (12/25/2006 4:00 AM CDT) WBC 18.9(H) 4.0 - 9.8 K/uL INTERFACE SYSTEM RBC 4.60 4.50 - 5.40 M/uL INTERFACE SYSTEM HEMOGLOBIN 13.0(L) 13.6 - 16.5 g/dL INTERFACE SYSTEM HEMATOCRIT 39.0(L) 40.0 - 48.0 % INTERFACE SYSTEM MCV 84.8 82.0 - 99.0 fL INTERFACE SYSTEM MCH 28.3 27.2 - 32.6 pg INTERFACE SYSTEM MCHC 33.3 31.5 - 35.5 % INTERFACE SYSTEM RDW 14.5 11.5 - 14.5 % INTERFACE SYSTEM RDW-STDEV 44.9 37.1 - 48.7 fL INTERFACE SYSTEM PLATELETS 111(L) 140 - 350 K/uL INTERFACE SYSTEM MPV 10.6 9.3 - 12.4 fL INTERFACE SYSTEM 12/25/2006 4:00 AM CDT Chalo Green Jr., MD HEMATOLOGY ORDERABLES E dited Performing Organization Address [facility] de Phone Number INTERFACE SYSTEM Refer to clinic/hospital department * (ABNORMAL) BASIC METABOLIC PANEL (12/25/2006 4:00 AM CDT) GLUCOSE 160(H) 65 - 99 mg/dL INTERFACE SYSTEM CREATININE 0.78 0.67 - 1.17 mg/dL INTERFACE SYSTEM CALCIUM 8.4 8.4 - 10.2 mg/dL INTERFACE SYSTEM BUN 17 6 - 20 mg/dL INTERFACE SYSTEM SODIUM 136 135 - 145 mmol/L INTERFACE SYSTEM POTASSIUM 4.3 3.5 - 4.9 mmol/L INTERFACE SYSTEM CHLORIDE 98 96 - 108 mmol/L INTERFACE SYSTEM CO2 33(H) 22 - 30 mmol/L INTERFACE SYSTEM GFR, >60 >=60 mL/min/1. 7 sq meter INTERFACE SYSTEM GFR >60 >=60 mL/min/1. 7 sq meter INTERFACE SYSTEM Comment: Estimated GFR rate interpretative information for both Americans and non- Americans is available on the [facility] Intranet at: [email or web address] Select: Lab Policies and Procedures Select: Reference Ranges - GFR 12/25/2006 4:00 AM CDT Chalo Green Jr., MD CHEMISTRY ORDERABLES Ed ited Performing Organization Address [facility] de Phone Number INTERFACE SYSTEM Refer to clinic/hospital department * (ABNORMAL) POC GLUCOSE (12/25/2006 12:01 AM CDT) GLUCOSE POC 175(H) 65 - 99 mg/dL INTERFACE SYSTEM 12/25/2006 12:0 1 AM CDT Manolo Parisi MD POINT OF CARE TESTING Edited Performing Organization Address [facility] de Phone Number INTERFACE SYSTEM Refer to clinic/hospital department * (ABNORMAL) POC GLUCOSE (12/24/2006 7:51 PM CDT) GLUCOSE POC 178(H) 65 - 99 mg/dL INTERFACE SYSTEM 12/24/2006 7:51 PM CDT Manolo Parisi MD POINT OF CARE TESTING Edited Performing Organization Address [facility] de Phone Number INTERFACE SYSTEM Refer to clinic/hospital department * (ABNORMAL) POC GLUCOSE (12/24/2006 3:56 PM CDT) GLUCOSE POC 212(H) 65 - 99 mg/dL INTERFACE SYSTEM 12/24/2006 3:56 PM CDT Manolo Parisi MD POINT OF CARE TESTING Edited Performing Organization Address [facility] de Phone Number INTERFACE SYSTEM Refer to clinic/hospital department * (ABNORMAL) POC GLUCOSE (12/24/2006 12:35 PM CDT) GLUCOSE POC 197(H) 65 - 99 mg/dL INTERFACE SYSTEM 12/24/2006 12:3 5 PM CDT Manolo Parisi MD POINT OF CARE TESTING Edited Performing Organization Address [facility] Phone Number INTERFACE SYSTEM Refer to clinic/hospital department * (ABNORMAL) CVR ONLY, CKMB/CK (12/24/2006 11:32 AM CDT) CKMB 70.8(AA) <=6.7 ng/mL INTERFACE SYSTEM Comment:Persistent abnormal result CKMB INTERP See Below INTERFAC E SYSTEM Comment:Elevated CKMB,Consis tent with Myocardial Injury CK 2,440(H) 10 - 170 U/L INTERFACE SYSTEM CARDIAC RELATIVE INDEX 2.9 <=4.0 INTERFACE SYSTEM 12/24/2006 11:3 2 AM CDT Manolo Parisi MD CHEMISTRY ORDERABLES Edited Performing Organization Address [facility] de Phone Number INTERFACE SYSTEM Refer to clinic/hospital department * (ABNORMAL) POC GLUCOSE (12/24/2006 9:05 AM CDT) GLUCOSE POC 145(H) 65 - 99 mg/dL INTERFACE SYSTEM 12/24/2006 9:05 AM CDT Manolo Parisi MD POINT OF CARE TESTING Edited Performing Organization Address [facility] de Phone Number INTERFACE SYSTEM Refer to clinic/hospital department * (ABNORMAL) POC GLUCOSE (12/24/2006 4:18 AM CDT) GLUCOSE POC 139(H) 65 - 99 mg/dL INTERFACE SYSTEM 12/24/2006 4:18 AM CDT Manolo Parisi MD POINT OF CARE TESTING Edited Performing Organization Address [facility] de Phone Number INTERFACE SYSTEM Refer to clinic/hospital department * (ABNORMAL) CBC WITH DIFFERENTIAL (12/24/2006 4:00 AM CDT) NEUTROPHILS 85(H) 45 - 70 % INTERFAC E SYSTEM LYMPHOCYTES 4(L) 16 - 45 % INTERFAC E SYSTEM MONOCYTES 12 3 - 13 % INTERFACE SYSTEM EOSINOPHILS 0 0 - 7 % INTERFAC E SYSTEM BASOPHILS 0 0 - 2 % INTERFACE SYSTEM NEUTROPHIL ABSOLUTE 15.78(H) 1.90 - 7.00 K/uL INTERFACE SYSTEM LYMPHOCYTE ABSOLUTE 0.73 0.70 - 4.50 K/uL INTERFACE SYSTEM MONOCYTE ABSOLUTE 2.14(H) 0.10 - 1.30 K/uL INTERFACE SYSTEM EOSINOPHIL ABSOLUTE 0.00 0.00 - 0.70 K/uL INTERFACE SYSTEM BASOPHILS ABSOLUTE 0.01 0.00 - 0.20 K/uL INTERFACE SYSTEM 12/24/2006 4:00 AM CDT Manolo Parisi MD HEMATOLOGY ORDERABLES Edited Performing Organization Address [facility] de Phone Number INTERFACE SYSTEM Refer to clinic/hospital department * (ABNORMAL) CBC WITH DIFFERENTIAL (12/24/2006 4:00 AM CDT) WBC 18.7(H) 4.0 - 9.8 K/uL INTERFACE SYSTEM RBC 4.93 4.50 - 5.40 M/uL INTERFACE SYSTEM HEMOGLOBIN 13.9 13.6 - 16.5 g/dL INTERFACE SYSTEM HEMATOCRIT 41.6 40.0 - 48.0 % INTERFACE SYSTEM MCV 84.4 82.0 - 99.0 fL INTERFACE SYSTEM MCH 28.2 27.2 - 32.6 pg INTERFACE SYSTEM MCHC 33.4 31.5 - 35.5 % INTERFACE SYSTEM RDW 14.4 11.5 - 14.5 % INTERFACE SYSTEM RDW-STDEV 44.1 37.1 - 48.7 fL INTERFACE SYSTEM PLATELETS 123(L) 140 - 350 K/uL INTERFACE SYSTEM MPV 10.4 9.3 - 12.4 fL INTERFACE SYSTEM 12/24/2006 4:00 AM CDT Manolo Parisi MD HEMATOLOGY ORDERABLES Edited Performing Organization Address [place]/[facility] de Phone Number INTERFACE SYSTEM Refer to clinic/hospital department * (ABNORMAL) PT AND APTT (12/24/2006 4:00 AM CDT) PROTIME 15.1 12.7 - 15.1 Seconds INTERFACE SYSTEM INR 1.2(H) 0.9 - 1.1 INTERFACE SYSTEM Comment: INR Therapeutic Range: Adult: 2.0 - 3.0 for pulmonary embolism or prophylaxis against venous thrombosis or systemic embolization. 2.0 - 3.0 for patients with tissue heart valves. 2.5 - 3.5 for patients with mechanical heart valves or post DE. Pediatric (12 years and under): 1.5 - 3.0 Although the target range in children is not well established , INR values of 1.5 - 3.0 are recommended for most patients. Higher values have been used in children with prosthetic cardiac valves and hereditary clotting disorders. (<3 days) therapeutic ranges have not been established. PTT 28.0 24.4 - 36.4 Seconds INTERFACE SYSTEM Comment: PTT Therapeutic Range: Heparin Level PTT (seconds) <0.10 units/mL <53 0.10 - 0.30 units/mL 53 - 67 0.30 - 0.70 units/mL* 67 - 95* 0.70 - 1.00 units/mL 95 - 116 *corresponds to therapeutic range for unfractionated heparin 12/24/2006 4:00 AM CDT Manolo Parisi MD HEMATOLOGY ORDERABLES Edited Performing Organization Address [facility] Co de Phone Number INTERFACE SYSTEM Refer to clinic/hospital department * (ABNORMAL) COMPREHENSIVE METABOLIC PANEL (12/24/2006 4:00 AM CDT) GLUCOSE 154(H) 65 - 99 mg/dL INTERFACE SYSTEM CREATININE 0.80 0.67 - 1.17 mg/dL INTERFACE SYSTEM CALCIUM 8.0(L) 8.4 - 10.2 mg/dL INTERFACE SYSTEM ALKALINE PHOSPHATASE 60 40 - 129 U/L INTERFACE SYSTEM AST 67(H) 12 - 38 U/L INTERFACE SYSTEM ALT 36 0 - 41 U/L INTERFACE SYSTEM TOTAL PROTEIN 6.2(L) 6.3 - 8.6 g/dL INTERFACE SYSTEM ALBUMIN 3.3(L) 3.4 - 4.8 g/dL INTERFACE SYSTEM BILIRUBIN TOTAL 0.4 0.2 - 1.0 mg/dL INTERFACE SYSTEM BUN 18 6 - 20 mg/dL INTERFACE SYSTEM SODIUM 138 135 - 145 mmol/L INTERFACE SYSTEM POTASSIUM 4.8 3.5 - 4.9 mmol/L INTERFACE SYSTEM CHLORIDE 106 96 - 108 mmol/L INTERFACE SYSTEM CO2 28 22 - 30 mmol/L INTERFACE SYSTEM GFR, >60 >=60 mL/min/1. 7 sq meter INTERFACE SYSTEM GFR >60 >=60 mL/min/1. 7 sq meter INTERFACE SYSTEM Comment: Estimated GFR rate interpretative information for both Americans and non- Americans is available on the [facility] Intranet at: [email or web address] Select: Lab Policies and Procedures Select: Reference Ranges - GFR 12/24/2006 4:00 AM CDT Manolo Parisi MD CHEMISTRY ORDERABLES Edited INTERFACE SYSTEM Refer to clinic/hospital department * (ABNORMAL) CVR ONLY, CKMB/CK (12/24/2006 4:00 AM CDT) CKMB 62.2(AA) <=6.7 ng/mL INTERFACE SYSTEM Comment:Persistent abnormal result CKMB INTERP See Below INTERFAC E SYSTEM Comment:Elevated CKMB,Consis tent with Myocardial Injury CK 1,961(H) 10 - 170 U/L INTERFACE SYSTEM CARDIAC RELATIVE INDEX 3.2 <=4.0 INTERFACE SYSTEM 12/24/2006 4:00 AM CDT Manolo Parisi MD CHEMISTRY ORDERABLES Edited Performing Organization Address [facility] de Phone Number INTERFACE SYSTEM Refer to clinic/hospital department * (ABNORMAL) POC GLUCOSE (12/24/2006 3:18 AM CDT) GLUCOSE POC 162(H) 65 - 99 mg/dL INTERFACE SYSTEM 12/24/2006 3:18 AM CDT Manolo Parisi MD POINT OF CARE TESTING Edited Performing Organization Address [facility] de Phone Number INTERFACE SYSTEM Refer to clinic/hospital department * (ABNORMAL) POC GLUCOSE (12/24/2006 1:13 AM CDT) GLUCOSE POC 177(H) 65 - 99 mg/dL INTERFACE SYSTEM 12/24/2006 1:13 AM CDT Manolo Parisi MD POINT OF CARE TESTING Edited Performing Organization Address [facility] de Phone Number INTERFACE SYSTEM Refer to clinic/hospital department * (ABNORMAL) POC GLUCOSE (12/24/2006 12:02 AM CDT) GLUCOSE POC 181(H) 65 - 99 mg/dL INTERFACE SYSTEM 12/24/2006 12:0 2 AM CDT Result [facility] Manolo Parisi MD POINT OF CARE TESTING Edited Performing Organization Address [facility] de Phone Number INTERFACE SYSTEM Refer to clinic/hospital department * (ABNORMAL) POC GLUCOSE (12/23/2006 10:58 PM CDT) GLUCOSE POC 189(H) 65 - 99 mg/dL INTERFACE SYSTEM 12/23/2006 10:5 8 PM CDT Manolo Parisi MD POINT OF CARE TESTING Edited Performing Organization Address City/[facility] Co de Phone Number INTERFACE SYSTEM Refer to clinic/hospital department * (ABNORMAL) CVR ONLY, CKMB/CK (12/23/2006 10:25 PM CDT) CKMB 49.2(AA) <=6.7 ng/mL INTERFACE SYSTEM Comment:Persistent abnormal result CKMB INTERP See Below INTERFAC E SYSTEM Comment:Elevated CKMB,Consis tent with Myocardial Injury CK 1,400(H) 10 - 170 U/L INTERFACE SYSTEM CARDIAC RELATIVE INDEX 3.5 <=4.0 INTERFACE SYSTEM 12/23/2006 10:2 5 PM CDT Manolo Parisi MD CHEMISTRY ORDERABLES Edited INTERFACE SYSTEM Refer to clinic/hospital department * (ABNORMAL) POC GLUCOSE (12/23/2006 9:12 PM CDT) Pathologist [facility] GLUCOSE POC 196(H) 65 - 99 mg/dL INTERFACE SYSTEM 12/23/2006 9:12 PM CDT Manolo Parisi MD POINT OF CARE TESTING Edited Performing Organization Address [facility]/ZIP Co de Phone Number INTERFACE SYSTEM Refer to clinic/hospital department * (ABNORMAL) POC RT, BLOOD GASES (12/23/2006 8:48 PM CDT) PH ARTERIAL 7.30(L) 7.35 - 7.45 INTERFACE SYSTEM PCO2 ARTERIAL 39 35 - 48 mm Hg INTERFACE SYSTEM PO2 ARTERIAL 83 83 - 108 mm Hg INTERFACE SYSTEM O2 SAT EST ABG POC 95 95 - 99 % INTERFACE SYSTEM PATIENT'S TEMPERATURE 37.0 Degree C INTERFACE SYSTEM BASE EXCESS ABG -6.7(L) -2.0 - 3.0 mmol/L INTERFACE SYSTEM HCO3 ARTERIAL 19(L) 22 - 26 mmol/L INTERFACE SYSTEM SODIUM POC 135 135 - 145 mmol/L INTERFACE SYSTEM POTASSIUM POC 5.5(H) 3.5 - 4.9 mmol/L INTERFACE SYSTEM CALICUM IONIZED, WHOLE BLOOD 4.73(L) 4.76 - 5.16 mg/dL INTERFACE SYSTEM HEMATOCRIT POC 47.0 40.0 - 48.0 % INTERFACE SYSTEM FIO2 40 INTERFACE SYSTEM OXYGEN MODE IMV PSV10 INTERFAC E SYSTEM PEEP POC 8 INTERFACE SYSTEM COMMENT, GASES POC RN AWARE INTERFACE SYSTEM 12/23/2006 8:48 PM CDT Manolo Parisi MD CHEMISTRY ORDERABLES Edited Performing Organization Address [facility] Phone Number INTERFACE SYSTEM Refer to clinic/hospital department * (ABNORMAL) POC GLUCOSE (12/23/2006 8:05 PM CDT) GLUCOSE POC 200(H) 65 - 99 mg/dL INTERFACE SYSTEM 12/23/2006 8:05 PM CDT Manolo Parisi MD POINT OF CARE TESTING Edited Performing Organization Address [facility] Phone Number INTERFACE SYSTEM Refer to clinic/hospital department * (ABNORMAL) POC GLUCOSE (12/23/2006 6:53 PM CDT) GLUCOSE POC 243(H) 65 - 99 mg/dL INTERFACE SYSTEM 12/23/2006 6:53 PM CDT Manolo Parisi MD POINT OF CARE TESTING Edited Performing Organization Address [facility] Phone Number INTERFACE SYSTEM Refer to clinic/hospital department * (ABNORMAL) POC GLUCOSE (12/23/2006 5:17 PM CDT) COMMENT, GLU POC TX Given INTERFACE SYSTEM GLUCOSE POC 218(H) 65 - 99 mg/dL INTERFACE SYSTEM 12/23/2006 5:17 PM CDT Manolo Parisi MD POINT OF CARE TESTING Edited Performing Organization Address [facility] de Phone Number INTERFACE SYSTEM Refer to clinic/hospital department * (ABNORMAL) POC GLUCOSE (12/23/2006 3:42 PM CDT) COMMENT, GLU POC Repeated Test INTERFACE SYSTEM COMMENT 3, GLU POC TX Given INTERFACE SYSTEM GLUCOSE POC 213(H) 65 - 99 mg/dL INTERFACE SYSTEM 12/23/2006 3:42 PM CDT Result [facility] Manolo Parisi MD POINT OF CARE TESTING Edited Performing Organization Address [facility] Phone Number INTERFACE SYSTEM Refer to clinic/hospital department * (ABNORMAL) CK TOTAL, RELATIVE INDEX (12/23/2006 12:50 PM CDT) CK 517(H) 10 - 170 U/L INTERFACE SYSTEM CARDIAC RELATIVE INDEX 4.4(H) <=4.0 INTERFACE SYSTEM 12/23/2006 12:5 0 PM CDT Result [facility] Manolo Parisi MD CHEMISTRY ORDERABLES Edited Performing Organization Address [facility] Phone Number INTERFACE SYSTEM Refer to clinic/hospital department * (ABNORMAL) CKMB W/REFLEX CK (12/23/2006 12:50 PM CDT) CKMB 22.8(AA) <=6.7 ng/mL INTERFACE SYSTEM Comment:Results called to Ady shoemakere_ at 12/23/2006 1:51 PM and read back verified. CKMB INTERP See Below INTERFAC E SYSTEM Comment:Elevated CKMB,Consis tent with Myocardial Injury. 12/23/2006 12:5 0 PM CDT Result [facility] Manolo Parisi MD CHEMISTRY ORDERABLES Edited Performing Organization Address [facility] Phone Number INTERFACE SYSTEM Refer to clinic/hospital department * (ABNORMAL) TROPONIN (W/REFLEX CKMB/CK) (12/23/2006 12:50 PM CDT) TROPONIN T 0.38(AA) <=0.03 ng/mL INTERFACE SYSTEM Comment:Results called to Ady inee_ at 12/23/2006 1:19 PM and read back verified. TROPONIN T INTERP See Below INTERFACE SYSTEM Comment:Elevated Troponin-T, Consistent with Myocardial Injury 12/23/2006 12:5 0 PM CDT Result [facility] Manolo Parisi MD CHEMISTRY ORDERABLES Edited Performing Organization Address [facility] Phone Number INTERFACE SYSTEM Refer to clinic/hospital department * (ABNORMAL) MAGNESIUM LEVEL (12/23/2006 12:50 PM CDT) MAGNESIUM 2.7(H) 1.5 - 2.5 mg/dL INTERFACE SYSTEM 12/23/2006 12:5 0 PM CDT Manolo Parisi MD CHEMISTRY ORDERABLES Edited Performing Organization Address [facility] Phone Number INTERFACE SYSTEM Refer to clinic/hospital department * (ABNORMAL) BASIC METABOLIC PANEL (12/23/2006 12:50 PM CDT) GLUCOSE 118(H) 65 - 99 mg/dL INTERFACE SYSTEM CREATININE 0.78 0.67 - 1.17 mg/dL INTERFACE SYSTEM CALCIUM 8.5 8.4 - 10.2 mg/dL INTERFACE SYSTEM BUN 13 6 - 20 mg/dL INTERFACE SYSTEM SODIUM 139 135 - 145 mmol/L INTERFACE SYSTEM POTASSIUM 4.3 3.5 - 4.9 mmol/L INTERFACE SYSTEM CHLORIDE 105 96 - 108 mmol/L INTERFACE SYSTEM CO2 25 22 - 30 mmol/L INTERFACE SYSTEM GFR, >60 >=60 mL/min/1. 7 sq meter INTERFACE SYSTEM GFR >60 >=60 mL/min/1. 7 sq meter INTERFACE SYSTEM Comment: Estimated GFR rate interpretative information for both Americans and non- Americans is available on the [facility] Intranet at: [email or web address] Select: Lab Policies and Procedures Select: Reference Ranges - GFR 12/23/2006 12:5 0 PM CDT Manolo Parisi MD CHEMISTRY ORDERABLES Edited Performing Organization Address [facility] Phone Number INTERFACE SYSTEM Refer to clinic/hospital department * PTT (12/23/2006 12:50 PM CDT) PTT 29.0 24.4 - 36.4 Seconds INTERFACE SYSTEM Comment: PTT Therapeutic Range: Heparin Level PTT (seconds) <0.10 units/mL <53 0.10 - 0.30 units/mL 53 - 67 0.30 - 0.70 units/mL* 67 - 95* 0.70 - 1.00 units/mL 95 - 116 *corresponds to therapeutic range for unfractionated heparin 12/23/2006 12:5 0 PM CDT Manolo Parisi MD HEMATOLOGY ORDERABLES Edited Performing Organization Address [facility] Phone Number INTERFACE SYSTEM Refer to clinic/hospital department * (ABNORMAL) PROTIME-INR (12/23/2006 12:50 PM CDT) PROTIME 16.4(H) 12.7 - 15.1 Seconds INTERFACE SYSTEM INR 1.3(H) 0.9 - 1.1 INTERFACE SYSTEM Comment: INR Therapeutic Range: Adult: 2.0 - 3.0 for pulmonary embolism or prophylaxis against venous thrombosis or systemic embolization. 2.0 - 3.0 for patients with tissue heart valves. 2.5 - 3.5 for patients with mechanical heart valves or post DE. Pediatric (12 years and under): 1.5 - 3.0 Although the target range in children is not well established , INR values of 1.5 - 3.0 are recommended for most patients. Higher values have been used in children with prosthetic cardiac valves and hereditary clotting disorders. (<3 days) therapeutic ranges have not been established. 12/23/2006 12:5 0 PM CDT Manolo Parisi MD HEMATOLOGY ORDERABLES Edited Performing Organization Address [facility] Phone Number INTERFACE SYSTEM Refer to clinic/hospital department * (ABNORMAL) CBC WITH DIFFERENTIAL (12/23/2006 12:50 PM CDT) NEUTROPHILS 89(H) 45 - 70 % INTERFAC E SYSTEM LYMPHOCYTES 6(L) 16 - 45 % INTERFAC E SYSTEM MONOCYTES 5 3 - 13 % INTERFACE SYSTEM EOSINOPHILS 1 0 - 7 % INTERFAC E SYSTEM BASOPHILS 0 0 - 2 % INTERFACE SYSTEM NEUTROPHIL ABSOLUTE 17.02(H) 1.90 - 7.00 K/uL INTERFACE SYSTEM LYMPHOCYTE ABSOLUTE 1.06 0.70 - 4.50 K/uL INTERFACE SYSTEM MONOCYTE ABSOLUTE 0.97 0.10 - 1.30 K/uL INTERFACE SYSTEM EOSINOPHIL ABSOLUTE 0.09 0.00 - 0.70 K/uL INTERFACE SYSTEM BASOPHILS ABSOLUTE 0.02 0.00 - 0.20 K/uL INTERFACE SYSTEM 12/23/2006 12:5 0 PM CDT Manolo Parisi MD HEMATOLOGY ORDERABLES Edited Performing Organization Address [place]/[facility] Phone Number INTERFACE SYSTEM Refer to clinic/hospital department * (ABNORMAL) CBC WITH DIFFERENTIAL (12/23/2006 12:50 PM CDT) WBC 19.2(H) 4.0 - 9.8 K/uL INTERFACE SYSTEM RBC 4.62 4.50 - 5.40 M/uL INTERFACE SYSTEM HEMOGLOBIN 13.1(L) 13.6 - 16.5 g/dL INTERFACE SYSTEM HEMATOCRIT 38.9(L) 40.0 - 48.0 % INTERFACE SYSTEM MCV 84.2 82.0 - 99.0 fL INTERFACE SYSTEM MCH 28.4 27.2 - 32.6 pg INTERFACE SYSTEM MCHC 33.7 31.5 - 35.5 % INTERFACE SYSTEM RDW 14.0 11.5 - 14.5 % INTERFACE SYSTEM RDW-STDEV 42.8 37.1 - 48.7 fL INTERFACE SYSTEM PLATELETS 134(L) 140 - 350 K/uL INTERFACE SYSTEM MPV 10.5 9.3 - 12.4 fL INTERFACE SYSTEM 12/23/2006 12:5 0 PM CDT Manolo Parisi MD HEMATOLOGY ORDERABLES Edited Performing Organization Address [facility] Phone Number INTERFACE SYSTEM Refer to clinic/hospital department * (ABNORMAL) POC RT, BLOOD GASES (12/23/2006 12:20 PM CDT) PH ARTERIAL 7.32(L) 7.35 - 7.45 INTERFACE SYSTEM PCO2 ARTERIAL 48 35 - 48 mm Hg INTERFACE SYSTEM PO2 ARTERIAL 98 83 - 108 mm Hg INTERFACE SYSTEM O2 SAT EST ABG POC 97 95 - 99 % INTERFACE SYSTEM PATIENT'S TEMPERATURE 37.0 Degree C INTERFACE SYSTEM BASE EXCESS ABG -1.8 -2.0 - 3.0 mmol/L INTERFACE SYSTEM HCO3 ARTERIAL 25 22 - 26 mmol/L INTERFACE SYSTEM SODIUM POC 135 135 - 145 mmol/L INTERFACE SYSTEM POTASSIUM POC 4.5 3.5 - 4.9 mmol/L INTERFACE SYSTEM CALICUM IONIZED, WHOLE BLOOD 4.69(L) 4.76 - 5.16 mg/dL INTERFACE SYSTEM HEMATOCRIT POC 44.0 40.0 - 48.0 % INTERFACE SYSTEM FIO2 80 INTERFACE SYSTEM OXYGEN MODE SIMV/PS 10 INTERFACE SYSTEM PEEP POC 8 INTERFACE SYSTEM COMMENT, GASES POC RN AWARE INTERFACE SYSTEM 12/23/2006 12:2 0 PM CDT Manolo Parisi MD CHEMISTRY ORDERABLES Edited Performing Organization Address [place]/[facility] Co de Phone Number INTERFACE SYSTEM Refer to clinic/hospital department * (ABNORMAL) POC GLUCOSE (12/23/2006 11:23 AM CDT) GLUCOSE POC 133(H) 65 - 99 mg/dL INTERFACE SYSTEM 12/23/2006 11:2 3 AM CDT Manolo Parisi MD POINT OF CARE TESTING Edited Performing Organization Address [facility] Co de Phone Number INTERFACE SYSTEM Refer to clinic/hospital department * (ABNORMAL) POC RT, BLOOD GASES (12/23/2006 11:22 AM CDT) PH ARTERIAL 7.29(L) 7.35 - 7.45 INTERFACE SYSTEM PCO2 ARTERIAL 55(H) 35 - 48 mm Hg INTERFACE SYSTEM PO2 ARTERIAL 149(H) 83 - 108 mm Hg INTERFACE SYSTEM O2 SAT EST ABG POC 99 95 - 99 % INTERFACE SYSTEM PATIENT'S TEMPERATURE 37.0 Degree C INTERFACE SYSTEM BASE EXCESS ABG -1.0 -2.0 - 3.0 mmol/L INTERFACE SYSTEM HCO3 ARTERIAL 26 22 - 26 mmol/L INTERFACE SYSTEM SODIUM POC 135 135 - 145 mmol/L INTERFACE SYSTEM POTASSIUM POC 4.4 3.5 - 4.9 mmol/L INTERFACE SYSTEM CALICUM IONIZED, WHOLE BLOOD 4.93 4.76 - 5.16 mg/dL INTERFACE SYSTEM HEMATOCRIT POC 40.0 40.0 - 48.0 % INTERFACE SYSTEM FIO2 100 INTERFACE SYSTEM OXYGEN MODE SIMV/PS 10 INTERFA CE SYSTEM PEEP POC 8 INTERFACE SYSTEM COMMENT, GASES POC RESULTS TO RN INTERFACE SYSTEM 12/23/2006 11:2 2 AM CDT Manolo Parisi MD CHEMISTRY ORDERABLES Edited Performing Organization Address [facility]/ZIP Co de Phone Number INTERFACE SYSTEM Refer to clinic/hospital department * (ABNORMAL) POC RT, BLOOD GASES (12/23/2006 10:40 AM CDT) PH ARTERIAL 7.36 7.35 - 7.45 INTERFACE SYSTEM PCO2 ARTERIAL 44 35 - 48 mm Hg INTERFACE SYSTEM PO2 ARTERIAL 274(H) 83 - 108 mm Hg INTERFACE SYSTEM O2 SAT EST ABG POC 100(H) 95 - 99 % INTERFACE SYSTEM PATIENT'S TEMPERATURE 37.0 Degree C INTERFACE SYSTEM BASE EXCESS ABG -0.7 -2.0 - 3.0 mmol/L INTERFACE SYSTEM HCO3 ARTERIAL 25 22 - 26 mmol/L INTERFACE SYSTEM SODIUM POC 132(L) 135 - 145 mmol/L INTERFACE SYSTEM POTASSIUM POC 4.6 3.5 - 4.9 mmol/L INTERFACE SYSTEM CALICUM IONIZED, WHOLE BLOOD 5.65(H) 4.76 - 5.16 mg/dL INTERFACE SYSTEM HEMATOCRIT POC 33.0(L) 40.0 - 48.0 % INTERFACE SYSTEM COMMENT, GASES POC POST PROTAMINE INTERFACE SYSTEM TCO2, ABG POC 26(H) 19 - 24 mmol/L INTERFACE SYSTEM LACTIC ACID 2.8(H) 0.5 - 2.2 mmol/L INTERFACE SYSTEM GLUCOSE POC 150(H) 65 - 99 mg/dL INTERFACE SYSTEM 12/23/2006 10:4 0 AM CDT Manolo Parisi MD CHEMISTRY ORDERABLES Edited INTERFACE SYSTEM Refer to clinic/hospital department * (ABNORMAL) POC RT, BLOOD GASES (12/23/2006 10:02 AM CDT) PH ARTERIAL 7.35(L) 7.35 - 7.45 INTERF OBEY SYSTEM PCO2 ARTERIAL 47 35 - 48 mm Hg INTERFACE SYSTEM PO2 ARTERIAL 160(H) 83 - 108 mm Hg INTERFACE SYSTEM O2 SAT EST ABG POC 99 95 - 99 % INTERFACE SYSTEM PATIENT'S TEMPERATURE 37.0 Degree C INTERFACE SYSTEM BASE EXCESS ABG 0 -2 - 3 mmol/L INTERFACE SYSTEM HCO3 ARTERIAL 26 22 - 26 mmol/L INTERFACE SYSTEM SODIUM POC 133(L) 135 - 145 mmol/L INTERFACE SYSTEM POTASSIUM POC 5.4(H) 3.5 - 4.9 mmol/L INTERFACE SYSTEM CALICUM IONIZED, WHOLE BLOOD 4.45(L) 4.76 - 5.16 mg/dL INTERFACE SYSTEM HEMATOCRIT POC 34.0(L) 40.0 - 48.0 % INTERFACE SYSTEM COMMENT, GASES POC CPB #4 INTERFACE SYSTEM TCO2, ABG POC 27(H) 19 - 24 mmol/L INTERFACE SYSTEM LACTIC ACID 2.2 0.5 - 2.2 mmol/L INTERFACE SYSTEM GLUCOSE POC 161(H) 65 - 99 mg/dL INTERFACE SYSTEM 12/23/2006 10:0 2 AM CDT Manolo Parisi MD CHEMISTRY ORDERABLES Edited INTERFACE SYSTEM Refer to clinic/hospital department * (ABNORMAL) POC RT, BLOOD GASES (12/23/2006 9:31 AM CDT) PH ARTERIAL 7.32(L) 7.35 - 7.45 INTERF OBEY SYSTEM PCO2 ARTERIAL 52(H) 35 - 48 mm Hg INTERFACE SYSTEM PO2 ARTERIAL 194(H) 83 - 108 mm Hg INTERFACE SYSTEM O2 SAT EST ABG POC 100(H) 95 - 99 % INTERFACE SYSTEM PATIENT'S TEMPERATURE 34.0 Degree C INTERFACE SYSTEM PH TEMP CORRECT 7.36 INTE RFACE SYSTEM PCO2 TEMP CORRECT 46 mm Hg INTERFACE SYSTEM PO2 TEMP CORRECT 179 mm Hg INT ERFACE SYSTEM BASE EXCESS ABG 0.2 -2.0 - 3.0 mmol/L INTERFACE SYSTEM HCO3 ARTERIAL 27(H) 22 - 26 mmol/L INTERFACE SYSTEM SODIUM POC 133(L) 135 - 145 mmol/L INTERFACE SYSTEM POTASSIUM POC 5.7(H) 3.5 - 4.9 mmol/L INTERFACE SYSTEM CALICUM IONIZED, WHOLE BLOOD 4.49(L) 4.76 - 5.16 mg/dL INTERFACE SYSTEM HEMATOCRIT POC 34.0(L) 40.0 - 48.0 % INTERFACE SYSTEM COMMENT, GASES POC CPB #3 INTERFACE SYSTEM TCO2, ABG POC 28(H) 19 - 24 mmol/L INTERFACE SYSTEM LACTIC ACID 1.8 0.5 - 2.2 mmol/L INTERFACE SYSTEM GLUCOSE POC 156(H) 65 - 99 mg/dL INTERFACE SYSTEM 12/23/2006 9:31 AM CDT Manolo Parisi MD CHEMISTRY ORDERABLES Edited Performing Organization Address [facility] Phone Number INTERFACE SYSTEM Refer to clinic/hospital department * (ABNORMAL) POC RT, BLOOD GASES (12/23/2006 9:04 AM CDT) PH ARTERIAL 7.31(L) 7.35 - 7.45 INTERF OBEY SYSTEM PCO2 ARTERIAL 52(H) 35 - 48 mm Hg INTERFACE SYSTEM PO2 ARTERIAL 118(H) 83 - 108 mm Hg INTERFACE SYSTEM O2 SAT EST ABG POC 98 95 - 99 % INTERFACE SYSTEM PATIENT'S TEMPERATURE 34.0 Degree C INTERFACE SYSTEM PH TEMP CORRECT 7.35 INTE RFACE SYSTEM PCO2 TEMP CORRECT 46 mm Hg INTERFACE SYSTEM PO2 TEMP CORRECT 101 mm Hg INT ERFACE SYSTEM BASE EXCESS ABG -0.5 -2.0 - 3.0 mmol/L INTERFACE SYSTEM HCO3 ARTERIAL 26 22 - 26 mmol/L INTERFACE SYSTEM SODIUM POC 134(L) 135 - 145 mmol/L INTERFACE SYSTEM POTASSIUM POC 5.2(H) 3.5 - 4.9 mmol/L INTERFACE SYSTEM CALICUM IONIZED, WHOLE BLOOD 4.53(L) 4.76 - 5.16 mg/dL INTERFACE SYSTEM HEMATOCRIT POC 33.0(L) 40.0 - 48.0 % INTERFACE SYSTEM COMMENT, GASES POC CPB #2 INTERFACE SYSTEM TCO2, ABG POC 28(H) 19 - 24 mmol/L INTERFACE SYSTEM LACTIC ACID 2.0 0.5 - 2.2 mmol/L INTERFACE SYSTEM GLUCOSE POC 125(H) 65 - 99 mg/dL INTERFACE SYSTEM 12/23/2006 9:04 AM CDT Manolo Parisi MD CHEMISTRY ORDERABLES Edited Performing Organization Address [facility] de Phone Number INTERFACE SYSTEM Refer to clinic/hospital department * (ABNORMAL) POC RT, BLOOD GASES (12/23/2006 9:00 AM CDT) PH MVBG 7.29(L) 7.32 - 7.43 INTERFAC E SYSTEM PCO2 VENOUS 59(H) 38 - 50 mm Hg INTERFACE SYSTEM PO2 MVBG 40 25 - 40 mm Hg INTERFACE SYSTEM O2 SAT EST MVBG POC 68 40 - 70 % INTERFACE SYSTEM PATIENT'S TEMPERATURE 34.0 Degree C INTERFACE SYSTEM PH TEMP CORRECT 7.33 INTE RFACE SYSTEM PCO2 TEMP CORRECT 52 mm Hg INTERFACE SYSTEM PO2 TEMP CORRECT 32 mm Hg INT ERFACE SYSTEM BASE EXCESS VENOUS 1.0 -2.0 - 3.0 mmol/L INTERFACE SYSTEM HCO3 MIXED VENOUS 28 22 - 29 mmol/L INTERFACE SYSTEM SODIUM POC 134(L) 135 - 145 mmol/L INTERFACE SYSTEM POTASSIUM POC 5.1(H) 3.5 - 4.9 mmol/L INTERFACE SYSTEM CALICUM IONIZED, WHOLE BLOOD 4.53(L) 4.76 - 5.16 mg/dL INTERFACE SYSTEM HEMATOCRIT POC 33.0(L) 40.0 - 48.0 % INTERFACE SYSTEM COMMENT, GASES POC CPB #1 INTERFACE SYSTEM TCO2, MVBG POC 30(H) 22 - 26 mmol/L INTERFACE SYSTEM LACTIC ACID 1.9 0.5 - 2.2 mmol/L INTERFACE SYSTEM GLUCOSE POC 126(H) 65 - 99 mg/dL INTERFACE SYSTEM 12/23/2006 9:00 AM CDT Manolo Parisi MD CHEMISTRY ORDERABLES Edited INTERFACE SYSTEM Refer to clinic/hospital department * (ABNORMAL) POC RT, BLOOD GASES (12/23/2006 7:58 AM CDT) PH ARTERIAL 7.40 7.35 - 7.45 INTERFACE SYSTEM PCO2 ARTERIAL 44 35 - 48 mm Hg INTERFACE SYSTEM PO2 ARTERIAL 333(H) 83 - 108 mm Hg INTERFACE SYSTEM O2 SAT EST ABG POC 100(H) 95 - 99 % INTERFACE SYSTEM PATIENT'S TEMPERATURE 37.0 Degree C INTERFACE SYSTEM BASE EXCESS ABG 2.1 -2.0 - 3.0 mmol/L INTERFACE SYSTEM HCO3 ARTERIAL 27(H) 22 - 26 mmol/L INTERFACE SYSTEM SODIUM POC 133(L) 135 - 145 mmol/L INTERFACE SYSTEM POTASSIUM POC 4.7 3.5 - 4.9 mmol/L INTERFACE SYSTEM CALICUM IONIZED, WHOLE BLOOD 4.37(L) 4.76 - 5.16 mg/dL INTERFACE SYSTEM HEMATOCRIT POC 41.0 40.0 - 48.0 % INTERFACE SYSTEM COMMENT, GASES POC POST INDUCTION INTERFACE SYSTEM TCO2, ABG POC 29(H) 19 - 24 mmol/L INTERFACE SYSTEM LACTIC ACID 1.4 0.5 - 2.2 mmol/L INTERFACE SYSTEM GLUCOSE POC 116(H) 65 - 99 mg/dL INTERFACE SYSTEM 12/23/2006 7:58 AM CDT Manolo Parisi MD CHEMISTRY ORDERABLES Edited Performing Organization Address [facility] Phone Number INTERFACE SYSTEM Refer to clinic/hospital department * (ABNORMAL) URINALYSIS (2006 1:49 PM CDT) COLOR UA Yellow INTERFACE SYSTEM CLARITY UA Slt. Cloudy(A) Clear INTERFACE SYSTEM SPECIFIC GRAVITY UA 1.014 1.001 - 1.035 INTERFACE SYSTEM PH UA 6.5 5.0 - 8.0 INTERFACE SYSTEM LEUKOCYTE ESTERASE UA Negative Negative INTERFACE SYSTEM NITRITE UA Negative Negative INTERFACE SYSTEM PROTEIN UA Negative Negative INTERFACE SYSTEM GLUCOSE UA Trace(A) Negative INTERFACE SYSTEM KETONES UA Negative Negative INTERFACE SYSTEM UROBILINOGEN UA <1 <=1 mg/dL INTE RFACE SYSTEM BILIRUBIN UA Negative Negative INTERFA CE SYSTEM BLOOD UA Negative Negative INTERFACE SYSTEM AMORPHOUS CRYSTAL Rare /HPF INTERFACE SYSTEM 2006 1:49 PM CDT Manolo Parisi MD URINE ORDERABLES Edited Performing Organization Address [facility] Phone Number INTERFACE SYSTEM Refer to clinic/hospital department * URINALYSIS WITH REFLEX CULTURE (2006 1:49 PM CDT) URINE CULTURE ORDER Not indicated INTERFACE SYSTEM Comment: Criteria for a reflex culture include one or more of the following: Abn ormal nitrite, leukocyte esterase, WBCs or RBCs. Lack of qualifying criteria does not exclude the possiblity of a urinary tract infection. Dilute urine, drug interference, etc. may decrease the sensitivity of the criteria analytes. 2006 1:49 PM CDT Manolo Parisi MD URINE ORDERABLES Edited Performing Organization Address [facility] [facility] de Phone Number INTERFACE SYSTEM Refer to clinic/hospital department * CBC WITH DIFFERENTIAL (2006 1:49 PM CDT) NEUTROPHILS 51 45 - 70 % INTERFAC E SYSTEM LYMPHOCYTES 33 16 - 45 % INTERFAC E SYSTEM MONOCYTES 11 3 - 13 % INTERFACE SYSTEM EOSINOPHILS 4 0 - 7 % INTERFAC E SYSTEM BASOPHILS 0 0 - 2 % INTERFACE SYSTEM NEUTROPHIL ABSOLUTE 3.02 1.90 - 7.00 K/uL INTERFACE SYSTEM LYMPHOCYTE ABSOLUTE 1.98 0.70 - 4.50 K/uL INTERFACE SYSTEM MONOCYTE ABSOLUTE 0.68 0.10 - 1.30 K/uL INTERFACE SYSTEM EOSINOPHIL ABSOLUTE 0.25 0.00 - 0.70 K/uL INTERFACE SYSTEM BASOPHILS ABSOLUTE 0.02 0.00 - 0.20 K/uL INTERFACE SYSTEM 2006 1:49 PM CDT Manolo Parisi MD HEMATOLOGY ORDERABLES Edited Performing Organization Address [facility] de Phone Number INTERFACE SYSTEM Refer to clinic/hospital department * CBC WITH DIFFERENTIAL (2006 1:49 PM CDT) WBC 6.0 4.0 - 9.8 K/uL INTERFACE SYSTEM RBC 5.33 4.50 - 5.40 M/uL INTERFACE SYSTEM HEMOGLOBIN 15.5 13.6 - 16.5 g/dL INTERFACE SYSTEM HEMATOCRIT 44.3 40.0 - 48.0 % INTERFACE SYSTEM MCV 83.1 82.0 - 99.0 fL INTERFACE SYSTEM MCH 29.1 27.2 - 32.6 pg INTERFACE SYSTEM MCHC 35.0 31.5 - 35.5 % INTERFACE SYSTEM RDW 14.1 11.5 - 14.5 % INTERFACE SYSTEM RDW-STDEV 42.2 37.1 - 48.7 fL INTERFACE SYSTEM PLATELETS 183 140 - 350 K/uL INTERFACE SYSTEM MPV 10.3 9.3 - 12.4 fL INTERFACE SYSTEM 2006 1:49 PM CDT Manolo Parisi MD HEMATOLOGY ORDERABLES Edited Performing Organization Address City/[facility]/ZIP Co de Phone Number INTERFACE SYSTEM Refer to clinic/hospital department * (ABNORMAL) COMPREHENSIVE METABOLIC PANEL (2006 1:49 PM CDT) GLUCOSE 163(H) 65 - 99 mg/dL INTERFACE SYSTEM CREATININE 0.63(L) 0.67 - 1.17 mg/dL INTERFACE SYSTEM CALCIUM 9.0 8.4 - 10.2 mg/dL INTERFACE SYSTEM ALKALINE PHOSPHATASE 83 40 - 129 U/L INTERFACE SYSTEM AST 25 12 - 38 U/L INTERFACE SYSTEM ALT 37 0 - 41 U/L INTERFACE SYSTEM TOTAL PROTEIN 7.7 6.3 - 8.6 g/dL INTERFACE SYSTEM ALBUMIN 4.1 3.4 - 4.8 g/dL INTERFACE SYSTEM BILIRUBIN TOTAL 0.3 0.2 - 1.0 mg/dL INTERFACE SYSTEM BUN 15 6 - 20 mg/dL INTERFACE SYSTEM SODIUM 141 135 - 145 mmol/L INTERFACE SYSTEM POTASSIUM 3.9 3.5 - 4.9 mmol/L INTERFACE SYSTEM CHLORIDE 104 96 - 108 mmol/L INTERFACE SYSTEM CO2 28 22 - 30 mmol/L INTERFACE SYSTEM GFR, >60 >=60 mL/min/1. 7 sq meter INTERFACE SYSTEM GFR >60 >=60 mL/min/1. 7 sq meter INTERFACE SYSTEM Comment: Estimated GFR rate interpretative information for both Americans and non- Americans is available on the [facility] Intranet at: [email or web address] Select: Lab Policies and Procedures Select: Reference Ranges - GFR 2006 1:49 PM CDT Manolo Parisi MD CHEMISTRY ORDERABLES Edited Performing Organization Address City/[facility]/ZIP Co de Phone Number INTERFACE SYSTEM Refer to clinic/hospital department * PT AND APTT (2006 1:49 PM CDT) PTT 27.3 24.4 - 36.4 Seconds INTERFACE SYSTEM Comment: PTT Therapeutic Range: Heparin Level PTT (seconds) <0.10 units/mL <53 0.10 - 0.30 units/mL 53 - 67 0.30 - 0.70 units/mL* 67 - 95* 0.70 - 1.00 units/mL 95 - 116 *corresponds to therapeutic range for unfractionated heparin PROTIME 13.6 12.7 - 15.1 Seconds INTERFACE SYSTEM INR 1.0 0.9 - 1.1 INTERFACE SYSTEM Comment: INR Therapeutic Range: Adult: 2.0 - 3.0 for pulmonary embolism or prophylaxis against venous thrombosis or systemic embolization. 2.0 - 3.0 for patients with tissue heart valves. 2.5 - 3.5 for patients with mechanical heart valves or post DE. Pediatric (12 years and under): 1.5 - 3.0 Although the target range in children is not well established , INR values of 1.5 - 3.0 are recommended for most patients. Higher values have been used in children with prosthetic cardiac valves and hereditary clotting disorders. (<3 days) therapeutic ranges have not been established. 2006 1:49 PM CDT Manolo Parisi MD HEMATOLOGY ORDERABLES Edited INTERFACE SYSTEM Refer to clinic/hospital department documented in this encounter Visit Diagnoses Diagnosis Aortic valve disorders- Primary documented in this encounter
--- OUTSIDE RECORDS SUMMARY | 2024-11-30 13:13 | XMS_ITS | Encounter Summary ---
Author Organization [facility] Address [address] [place] [address] Care Team Providers Care Welding Lead Burner Name Role Phone Unavailable Primary Care Provider Unavailabl e Encounter Details Date Type Department Care Team (Late st Contact Info) Description 01/26/2007 Outpatient Historical [facility] Cardiovas and Thor Surg at [facility] Heart [address] [address] Manolo Parisi MD [address] [place] [phone] Social History Tobacco Use Types Packs/Day Years Used Date Smoking Tobacco: Never Assessed Sex and Gender Information Value Date Recorded Sex Assigned at Not on file 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
--- OUTSIDE RECORDS SUMMARY | 2024-11-30 13:13 | XMS_ITS | Encounter Summary ---
Author Organization [employer] Address [address] [place] [address] Care Team Providers Care Skilled Labor Name Role Phone Unavailable Primary Care Provider Unavailabl e Encounter Details Date Type Department Care Team (Late st Contact Info) Description 12/27/2006 Outpatient Historical 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
--- OUTSIDE RECORDS SUMMARY | 2024-11-30 13:13 | XMS_ITS | Clinical Summary ---
Author Organization [facility] [address] [facility] [address] Address [address] [facility] [address] [place] [address] Care Team Providers Care String Top Sealer Name Role Phone Lee Branch MD Primary Care Provide r Allergies No known active allergies Medications aspirin [...] TABLET BY MOUTH ONCE DAILY IN THE MAINTENANCE MAN BEFORE BREAKFAST 90 tablet 3 9 Active [...] anticoagulation 01/19/2021 Coronary artery disease invo lving [place] coronary artery of [place] heart without angina pectoris 05/05/2017 Complete heart [...] History of coronary artery stent placement 10/14 Encounters Date Type Department Care Team Description 10/11/2024 Orders Only [facility] Cardiology [address] [place] [address] [address] [facility] [place] [phone] Lee Rodrigues MD Complete atrioventricular block (HCC) (Primary Dx); Presence of cardiac pacemaker 10/11/2024 Telephone [facility] Cardiology [address] [place] [address] [address] [place] [phone] Lee Rodrigues MD from Last 3 Months Surgical History Surgery Date Site/Laterality Comments CENTRAL LINE PLACEMENT > 5 YEARS 10/28/2015 N/A Medical History Medical History Date Comments Adiposity Obesity Hypertension Hypertension Hx Other Medical Diabetes Type I I Social History Tobacco Use Types Packs/Day Years Used Date Smoking Tobacco: Some Days Pipe Smokeless Tobacco: Never Tobacco Cessation:Ready to Q uit: Not Asked; Counseling Given: Not Answered Alcohol Use Standard Drinks/Week Comments Yes 0 (1 standard drink = 0.6 oz pur e alcohol) Sex and Gender Information Value Date Recorded Sex Assigned at Not on file 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 Sex 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 Gender Identity Not on file Sexual Orientation Not on file Obstetrics History Last Filed Vital Signs Vital Sign Reading Time Taken Comments Blood Pressure 116/70 08/27/2024 9:58 AM METAL CHECKER Pulse 91 08/27/2024 9:58 AM METAL CHECKER Temperature - - Respiratory Rate 16 05/05/2017 11:4 2 AM CDT Oxygen Saturation 98% 08/27/2024 9:58 AM METAL CHECKER Inhaled Oxygen Concentration - - Weight 106.5 kg (234 lb 14.4 oz) 08/27/2024 9:58 AM METAL CHECKER Height 177.8 cm (5' 10 ) 08/27/2024 9:58 AM METAL CHECKER Body Mass Index 33.7 08/27/2024 9:58 AM METAL CHECKER Plan of Treatment Health Maintenance Due Date Last Done Comments Colon Cancer Screening-Colonoscopy 1958 Depression Screening 1958 Fall Risk Assessment 1958 Hepatitis C Screening 1958 Prostate Cancer Screening-PSA 1958 DTaP/Tdap/Td Vaccine (1 - Tdap) 1969 Hepatitis B Screening 1976 Pneumococcal vaccine 65+ (1 of 2 - PCV) 1977 Zoster Vaccine (1 of 2) 2008 Abdominal Aortic Aneurysm (AAA) Screen 12/17/2023 Well Visit 65+ 12/17/2023 Influenza Vaccine (#1) 2024 Medical Devices Implanted Type Area Bakery Assistant Device Identifier Shelf Expiration Date Model / Serial / Lot Pacemaker-2015 Implanted:10/26 (Quantity not on file) Pacemaker Chest Medtronic CHB Insurance [employer] MEDICARE GOLD [employer] MEDICARE HMO Care Teams String Top Sealer Relationship Specialty Start Date End Date Lee Branch MD [address] [place] [address] PCP - General 11/12/16
[2024-11-30 13:48] LABS: INR 4.2; Prothrombin Time 40.5 Seconds (11.1-14.7)
== END 2024-11-30 13:09 | disposition home or self-care (01) ==
LOC: ANHLAB 13:11
PROVIDERS: PCP Emergency Medicine; Visit Provider Emergency Medicine
DX: R79.1 Abnormal coagulation profile (principal); Z95.2 Presence of prosthetic heart valve
CPT/HCPCS: 36415; 85610

== ENCOUNTER 2025-03-04 10:16 | Outpatient (CLI) | payer MEDICARE, SELFPAY ==
--- OUTSIDE RECORDS SUMMARY | 2025-03-04 10:28 | XMS_ITS | Encounter Summary ---
Author Organization [facility] Address [address] [facility] [address] [place] [address] Care Team Providers Care Business Process Manager Name Role Phone Lee Branch MD Primary Care Provide r Lee Branch MD Primary Care Provide r Encounter Details Date Type Department Care Team (Late st Contact Info) Description 10/16/2016 Orders Only [facility] Provider, MD Yasmine [address] [place] [address] Social History Tobacco Use Types Packs/Day Years Used Date Smoking Tobacco: Former Cigarettes Q uit: 08/15/2007 Alcohol Use Standard Drinks/Week Comments Yes 0 (1 standard drink = 0.6 oz pur e alcohol) Sex and Gender Information Value Date Recorded Sex Assigned at Not on file 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 Gender Identity Not on file Sexual Orientation Not on file documented as of this encounter Plan of Treatment Upcoming Encounters Date Type Department Care Team (Late st Contact Info) Description 03/04/2025 10:30 AM CDT Office Visit [facility] Cardiology [address] [place] [address] Lee Rodrigues MD [address] [place], [place] [phone] Arrived documented as of this encounter Procedures Procedure Name Priority Date/Time Associated Diagnosis Comments CARDIOLOGY REPORT 10/16/2016 documented in this encounter Results * CARDIOLOGY REPORT (10/16/2016) Anatomical Region Laterality Modality Other Narrative 10/16/2016 Ordered by an unspecified provider. us Historical Provider CV CARDIAC SERVICES PROCE SAL Final Result documented in this encounter Visit Diagnoses Not on filedocumented in this encounter Care Teams Business Process Manager Relationship Specialty Start Date End Date Lee Branch MD [address] [place] [address] PCP - General 11/12/16 Lee Branch MD [address] [place] [address] PCP - General 12/05/14 11/11/16 documented as of this encounter
--- OUTSIDE RECORDS SUMMARY | 2025-03-04 10:28 | XMS_ITS | Referral Summary ---
Author Organization [facility] [place] [place] [address] [place] [address] [address] [place] [address] Care Team Providers Care Environmental Services Director Name Role Phone Lee Branch MD Primary Care Provide r Encounters Date Type Department Care Team Description 03/04/2025 10:30 AM CDT Office Visit [facility] Cardiology [address] [place] [address] Lee Rodrigues MD Arrived 02/18/2025 Telephone [facility] Cardiology [address] [facility] [address] [place] [address] Birgit Benavides MA INR DUE 12/17/2024 Telephone [facility] Cardiology [address] [place] [address] [place] [phone] Lee Rodrigues MD from Last 3 Months Allergies No known active allergies Medications aspirin (ASPIRIN LOW DOSE) 81 mg tablet take 1 Tablet (81MG) by oral route every day 0 10/02/19 13 Active metFORMIN (GLUCOPHAGE) 1,000 mg tablet take 1 tablet by oral route 2 times every day with morning and evening meals 0 12/25/19 14 Active glyBURIDE (DIABETA) 2.5 mg tablet take 1 tablet by oral route every day before meals 0 0 12/25/19 14 Active metoprolol XL (TOPROL-XL) 50 mg 24 hr tablet TAKE 1 TABLET BY MOUTH ONCE DAILY IN THE SENIOR TECHNICAL EDITOR BEFORE BREAKFAST 90 tablet 3 06/21/20 19 Active nitroglycerin (NITROSTAT) 0.4 mg SL tabletIndicatio ns:acute episode of anginal pain Place 1 tablet (0.4 mg total) under the tongue every 5 (five) minutes as needed for chest pain May repeat dose q 5 min, up to 3 doses total 100 tablet 3 03/11/20 20 Active rosuvastatin (CRESTOR) 10 mg tablet Take 1 tablet (10 mg total) by mouth daily Active warfarin (COUMADIN) 4 mg tablet Take 1 tablet (4 mg total) by mouth as directed Take one tablet every Sat, Sun, Tue or as directed. 20 tablet 11/20/19 22 Active losartan (COZAAR) 50 mg tablet TAKE 1 TABLET BY MOUTH ONCE DAILY IN THE MORNING . APPOINTMENT REQUIRED FOR FUTURE REFILLS 10/12/19 23 Active warfarin (COUMADIN) 6 mg tablet Take 1 tablet (6 mg total) by mouth 2 (two) times a week PLEASE HAVE INR DRAWN 4 tablet 02/19/20 25 Active isosorbide mononitrate ER (IMDUR) 60 mg 24 hr tablet Take 1 tablet by mouth once daily 90 tablet 1 02/26/20 25 Active warfarin (COUMADIN) 6 mg tablet TAKE 1 TABLET BY MOUTH ONCE DAILY ON TUESDAY, TUESDAY, TUESDAY AND TUESDAY 125 tablet 08/17/19 23 025 Discontinued isosorbide mononitrate ER (IMDUR) 60 mg 24 hr tablet Take 1 tablet by mouth once daily 90 tablet 10/30/19 25 025 Discontinued Active Problems Problem Noted Date Diagnosed Date Chronic anticoagulation 01/19/2021 Coronary artery disease invo lving [place] coronary artery of [place] heart without angina pectoris 05/05/2017 Complete heart [...] on file Legal Sex Male 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 Gender Identity Not on file Sexual Orientation Not on file Last Filed Vital Signs Vital Sign Reading Time Taken Comments Blood Pressure 134/80 03/04/2025 10:27 AM CDT Pulse 92 03/04/2025 10:27 AM CDT Temperature - - Respiratory Rate 16 05/05/2017 11:4 2 AM CDT Oxygen Saturation 97% 03/04/2025 10: 27 AM CDT Inhaled Oxygen Concentration - - Weight 105.7 kg (233 lb 1.6 oz) 025 10:27 AM CDT Height 177.8 cm (5' 10) 03/04/2025 10: 27 AM CDT Body Mass Index 33.45 03/04/2025 10:27 AM CDT Plan of Treatment Upcoming Encounters Date Type Department Care Team (Late st Contact Info) Description 03/04/2025 10:30 AM CDT Office Visit [facility] Cardiology [address] [place] [phone] Lee Rodrigues MD [address] [place] [address] Arrived Medical Devices Implanted Type Area Strategic Alliances Manager Device Identifier Shelf Expiration Date Model / Serial / Lot Pacemaker-2015 Implanted:10/26 (Quantity not on file) Pacemaker Chest Medtronic CHB Insurance [facility] MEDICARE ADVANTAGE Care Teams Environmental Services Director Relationship Specialty Start Date End Date Lee Branch MD [address] [place] [address] PCP - General 11/12/16
--- OUTSIDE RECORDS SUMMARY | 2025-03-04 10:28 | XMS_ITS | Clinical Summary ---
Author Organization [facility] [address] Address [address] [place] [address] Care Team Providers Care Chemical Milling Processor Name Role Phone Lee Branch MD Primary [...] TABLET BY MOUTH ONCE DAILY IN THE WEB SITE MANAGER BEFORE BREAKFAST 90 tablet 3 06/21/20 19 [...] anticoagulation 01/19/2021 Coronary artery disease invo lving [place] coronary artery of [place] heart without angina pectoris 05/05/2017 Complete heart [...] Description 03/04/2025 10:30 AM CDT Office Visit [facility] Cardiology [address] [place] [address] Lee Rodrigues MD Arrived 02/18/2025 Telephone [facility] Cardiology [address] [place] [address] Birgit Benavides MA INR DUE 12/17/2024 Telephone [facility] Cardiology [address] [facility] [address] [place] [address] Lee Rodrigues MD from Last 3 [...] on file 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 Gender Identity Not on file Sexual [...] Description 03/04/2025 10:30 AM CDT Office Visit [facility] Cardiology [address] [address] Lee Rodrigues MD [address] [address] Arrived Health Maintenance Due Date Last Done Comments [...] Well Visit 65+ 12/17/2023 Influenza Vaccine (#1) 2025 Medical Devices Implanted Type Area It Technical Architect Device Identifier Shelf Expiration Date Model / Serial / Lot Pacemaker-2015 Implanted:10/26 (Quantity not on file) Pacemaker Chest Medtronic CHB Insurance [facility] MEDICARE ADVANTAGE Care Teams Chemical Milling Processor Relationship Specialty Start Date End Date Lee Branch MD [address] [place] [address] PCP - General 11/12/16
--- OUTSIDE RECORDS SUMMARY | 2025-03-04 10:28 | XMS_ITS | Encounter Summary ---
Author Organization [facility] Address [address] [place] [address] Care Team Providers Care Kaiako Kura Ka[place] Maori Name Role Phone Lee Branch MD Primary Care Provide r Reason for Visit * Reason Comments Follow-up 6 mo f/u Coronary Artery Disease Encounter Details Date Type Department Care Team (Late st Contact Info) Description 03/04/2025 10:30 AM CDT Office Visit 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 Gender Identity Not on file Sexual Orientation Not on file documented as of this encounter Last Filed Vital Signs Vital Sign Reading Time Taken Comments Blood Pressure 134/80 03/04/2025 10:27 AM CDT Pulse 92 03/04/2025 10:27 AM CDT Temperature - - Respiratory Rate - - Oxygen Saturation 97% 03/04/2025 10: 27 AM CDT Inhaled Oxygen Concentration - - Weight 105.7 kg (233 lb 1.6 oz) 025 10:27 AM CDT Height 177.8 cm (5' 10) 03/04/2025 10: 27 AM CDT Body Mass Index 33.45 03/04/2025 10:27 AM CDT documented in this encounter Plan of Treatment Not on file documented as of this encounter Visit Diagnoses Not on filedocumented in this encounter Care Teams Kaiako Kura [place] Maori Relationship Specialty Start Date End Date Lee Branch MD [address] [place] [address] PCP - General 11/12/16 documented as of this encounter
--- OUTSIDE RECORDS SUMMARY | 2025-03-04 10:29 | XMS_ITS | Encounter Summary ---
Author Organization [facility] Address [address] [place] [address] Care Team Providers Care Straight Knife Cutter Machine Name Role Phone Unavailable Primary Care Provider Unavailabl e Encounter Details Date Type Department Care Team (Late st Contact Info) Description 12/23/2006 Outpatient Historical [facility] Cardiovas and Thor Surg at [facility] Heart [address] [address] Manolo Parisi MD [address] [place] [phone] Social History Tobacco Use Types Packs/Day Years Used Date Smoking Tobacco: Never Assessed Sex and Gender Information Value Date Recorded Sex Assigned at Not on file 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
--- OUTSIDE RECORDS SUMMARY | 2025-03-04 10:29 | XMS_ITS | Encounter Summary ---
Author Organization [employer] Address [address] [place] [address] Care Team Providers Care Marine Diver Name Role Phone Unavailable Primary Care Provider Unavailabl e Encounter Details Date Type Department Care Team (Late st Contact Info) Description 2006 Outpatient Historical [facility] Support [facility]. (Adt Cardiology-[facility]) [address] 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
--- OUTSIDE RECORDS SUMMARY | 2025-03-04 10:29 | XMS_ITS | Encounter Summary ---
Author Organization [employer] Address 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
--- OUTSIDE RECORDS SUMMARY | 2025-03-04 10:29 | XMS_ITS | Encounter Summary ---
Author Organization [facility] Address 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
--- OUTSIDE RECORDS SUMMARY | 2025-03-04 10:29 | XMS_ITS | Encounter Summary ---
Author Organization [employer] Address 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 Pediatric (12 years and under): 1.5 - [...] MD HEMATOLOGY ORDERABLES Edited Performing Organization Address [facility]/ZIP Co de Phone Number INTERFACE SYSTEM Refer to clinic/hospital department * (ABNORMAL) POC GLUCOSE (12/28/2006 8:49 PM CDT) GLUCOSE POC 135(H) 65 - 99 mg/dL INTERFACE SYSTEM 12/28/2006 8:49 PM CDT Edmellisa Parisi MD POINT OF CARE TESTING Edited Performing Organization Address [facility] Phone Number INTERFACE SYSTEM Refer to clinic/hospital department * (ABNORMAL) POC GLUCOSE (12/28/2006 4:18 PM CDT) GLUCOSE POC 103(H) 65 - 99 mg/dL INTERFACE SYSTEM 12/28/2006 4:18 PM CDT Manolo Parisi MD POINT OF CARE TESTING Edited Performing Organization Address [facility] Phone Number INTERFACE SYSTEM Refer to clinic/hospital department * (ABNORMAL) POC GLUCOSE (12/28/2006 11:19 AM CDT) GLUCOSE POC 147(H) 65 - 99 mg/dL INTERFACE SYSTEM 12/28/2006 11:1 9 AM CDT Manolo Parisi MD POINT OF CARE TESTING Edited Performing Organization Address [facility] Phone Number INTERFACE SYSTEM Refer to clinic/hospital department * (ABNORMAL) POC GLUCOSE (12/28/2006 7:09 AM CDT) GLUCOSE POC 123(H) 65 - 99 mg/dL INTERFACE SYSTEM 12/28/2006 7:09 AM CDT Manolo Parisi MD POINT OF CARE TESTING Edited Performing Organization Address [facility] de Phone Number INTERFACE SYSTEM [...] patients with mechanical heart valves or post CO. Pediatric (12 years and under): 1.5 - [...] MD HEMATOLOGY ORDERABLES Edited Performing Organization Address [facility] Phone Number INTERFACE SYSTEM Refer to clinic/hospital department * (ABNORMAL) POC GLUCOSE (12/27/2006 8:12 PM CDT) GLUCOSE POC 138(H) 65 - 99 mg/dL INTERFACE SYSTEM 12/27/2006 8:12 PM CDT Manolo Parisi MD POINT OF CARE TESTING Edited Performing Organization Address [facility] Phone Number INTERFACE SYSTEM Refer to clinic/hospital department * POTASSIUM LEVEL (12/27/2006 5:53 PM CDT) POTASSIUM 4.2 3.5 - 4.9 mmol/L INTERFACE SYSTEM 12/27/2006 5:53 PM CDT Manolo Parisi MD CHEMISTRY ORDERABLES Edited Performing Organization Address [facility] Phone Number INTERFACE SYSTEM Refer to clinic/hospital department * MAGNESIUM LEVEL (12/27/2006 5:53 PM CDT) MAGNESIUM 2.1 1.5 - 2.5 mg/dL INTERFACE SYSTEM 12/27/2006 5:53 PM CDT Manolo Parisi MD CHEMISTRY ORDERABLES Edited Performing Organization Address [facility] de Phone Number INTERFACE SYSTEM Refer to clinic/hospital department * POC GLUCOSE (12/27/2006 4:12 PM CDT) GLUCOSE POC 97 65 - 99 mg/dL INTERFACE SYSTEM 12/27/2006 4:12 PM CDT Manolo Parisi MD POINT OF CARE TESTING Edited Performing Organization Address [facility] de Phone Number INTERFACE SYSTEM Refer to clinic/hospital department * (ABNORMAL) POC GLUCOSE (12/27/2006 7:18 AM CDT) COMMENT, GLU POC Notified RN INTERFACE SYSTEM GLUCOSE POC 103(H) 65 - 99 mg/dL INTERFACE SYSTEM 12/27/2006 7:18 AM CDT Manolo Parisi MD POINT OF CARE TESTING Edited Performing Organization Address [facility] de Phone Number INTERFACE SYSTEM Refer to [...] PAZ HEMATOLOGY ORDERABLES Edited Performing Organization Address City/[facility] de Phone Number INTERFACE SYSTEM [...] PAZ HEMATOLOGY ORDERABLES Edited Performing Organization Address [facility] de Phone Number INTERFACE SYSTEM [...] patients with mechanical heart valves or post CO. Pediatric (12 years and under): 1.5 - [...] MD HEMATOLOGY ORDERABLES Edited Performing Organization Address City/[facility] de Phone Number INTERFACE SYSTEM [...] and non- Americans is available on the [facility] Intranet at: [email or web address] Select: Lab Policies and Procedures Select: Reference Ranges - GFR 12/27/2006 5:00 AM CDT Jose DE PAZ CHEMISTRY ORDERABLES Edited Performing Organization Address [facility] Phone Number INTERFACE SYSTEM Refer to clinic/hospital department * (ABNORMAL) POC GLUCOSE (12/26/2006 8:19 PM CDT) GLUCOSE POC 122(H) 65 - 99 mg/dL INTERFACE SYSTEM 12/26/2006 8:19 PM CDT Manolo Parisi MD POINT OF CARE TESTING Edited Performing Organization Address [facility] Co de Phone Number INTERFACE [...] patients with mechanical heart valves or post CO. Pediatric (12 years and under): 1.5 - [...] HEMATOLOGY ORDERABLES E dited Performing Organization Address [facility] Phone Number INTERFACE SYSTEM Refer to clinic/hospital department * (ABNORMAL) POC GLUCOSE (12/25/2006 8:22 PM CDT) GLUCOSE POC 147(H) 65 - 99 mg/dL INTERFACE SYSTEM 12/25/2006 8:22 PM CDT Manolo Parisi MD POINT OF CARE TESTING Edited Performing Organization Address [facility] Phone Number INTERFACE SYSTEM Refer to clinic/hospital department * (ABNORMAL) POC GLUCOSE (12/25/2006 4:18 PM CDT) GLUCOSE POC 180(H) 65 - 99 mg/dL INTERFACE SYSTEM 12/25/2006 4:18 PM CDT Manolo Parisi MD POINT OF CARE TESTING Edited Performing Organization Address [facility] Phone Number INTERFACE SYSTEM Refer to clinic/hospital department * (ABNORMAL) POC GLUCOSE (12/25/2006 11:04 AM CDT) GLUCOSE POC 175(H) 65 - 99 mg/dL INTERFACE SYSTEM 12/25/2006 11:0 4 AM CDT Manolo Parisi MD POINT OF CARE TESTING Edited Performing Organization Address [facility] Phone Number [...] patients with mechanical heart valves or post CO. Pediatric (12 years and under): 1.5 - [...] PAZ HEMATOLOGY ORDERABLES Edited Performing Organization Address [facility] Phone Number INTERFACE SYSTEM Refer to clinic/hospital department * (ABNORMAL) POC GLUCOSE (12/25/2006 6:20 AM CDT) GLUCOSE POC 164(H) 65 - 99 mg/dL INTERFACE SYSTEM 12/25/2006 6:20 AM CDT Manolo Parisi MD POINT OF CARE TESTING Edited Performing Organization Address [facility] Phone Number INTERFACE SYSTEM Refer to clinic/hospital [...] HEMATOLOGY ORDERABLES E dited Performing Organization Address City/[facility] de Phone Number INTERFACE SYSTEM [...] HEMATOLOGY ORDERABLES E dited Performing Organization Address City/[facility] de Phone Number INTERFACE SYSTEM [...] and non- Americans is available on the [facility] Intranet at: [email or web address] Select: Lab Policies and Procedures Select: Reference Ranges - GFR 12/25/2006 4:00 AM CDT Chalo Green Jr., MD CHEMISTRY ORDERABLES Ed ited Performing Organization Address [facility] de Phone Number INTERFACE SYSTEM Refer to clinic/hospital department * (ABNORMAL) POC GLUCOSE (12/25/2006 12:01 AM CDT) GLUCOSE POC 175(H) 65 - 99 mg/dL INTERFACE SYSTEM 12/25/2006 12:0 1 AM CDT Manolo Parisi MD POINT OF CARE TESTING Edited Performing Organization Address [facility] de Phone Number INTERFACE SYSTEM Refer to clinic/hospital department * (ABNORMAL) POC GLUCOSE (12/24/2006 7:51 PM CDT) GLUCOSE POC 178(H) 65 - 99 mg/dL INTERFACE SYSTEM 12/24/2006 7:51 PM CDT Manolo Parisi MD POINT OF CARE TESTING Edited Performing Organization Address [facility] de Phone Number INTERFACE SYSTEM Refer to clinic/hospital department * (ABNORMAL) POC GLUCOSE (12/24/2006 3:56 PM CDT) GLUCOSE POC 212(H) 65 - 99 mg/dL INTERFACE SYSTEM 12/24/2006 3:56 PM CDT Manolo Parisi MD POINT OF CARE TESTING Edited Performing Organization Address City/[facility] de Phone Number INTERFACE SYSTEM Refer to clinic/hospital department * (ABNORMAL) POC GLUCOSE (12/24/2006 12:35 PM CDT) GLUCOSE POC 197(H) 65 - 99 mg/dL INTERFACE SYSTEM 12/24/2006 12:3 5 PM CDT Manolo Parisi MD POINT OF CARE TESTING Edited Performing Organization Address [facility] Phone Number INTERFACE SYSTEM Refer to clinic/hospital [...] MD CHEMISTRY ORDERABLES Edited Performing Organization Address [facility] de Phone Number INTERFACE SYSTEM Refer to clinic/hospital department * (ABNORMAL) POC GLUCOSE (12/24/2006 9:05 AM CDT) GLUCOSE POC 145(H) 65 - 99 mg/dL INTERFACE SYSTEM 12/24/2006 9:05 AM CDT Manolo Parisi MD POINT OF CARE TESTING Edited Performing Organization Address City/[facility] de Phone Number INTERFACE SYSTEM Refer to clinic/hospital department * (ABNORMAL) POC GLUCOSE (12/24/2006 4:18 AM CDT) GLUCOSE POC 139(H) 65 - 99 mg/dL INTERFACE SYSTEM 12/24/2006 4:18 AM CDT Manolo Parisi MD POINT OF CARE TESTING Edited Performing Organization Address City/[facility] de Phone Number INTERFACE SYSTEM [...] MD HEMATOLOGY ORDERABLES Edited Performing Organization Address [facility] de Phone Number INTERFACE SYSTEM [...] MD HEMATOLOGY ORDERABLES Edited Performing Organization Address City/[facility] de Phone Number INTERFACE SYSTEM [...] patients with mechanical heart valves or post CO. Pediatric (12 years and under): 1.5 - [...] MD HEMATOLOGY ORDERABLES Edited Performing Organization Address [facility] Co de Phone Number INTERFACE [...] and non- Americans is available on the [facility] Intranet at: [email or web address] Select: Lab Policies and Procedures Select: [...] MD CHEMISTRY ORDERABLES Edited Performing Organization Address [facility] de Phone Number INTERFACE SYSTEM Refer to clinic/hospital department * (ABNORMAL) POC GLUCOSE (12/24/2006 3:18 AM CDT) GLUCOSE POC 162(H) 65 - 99 mg/dL INTERFACE SYSTEM 12/24/2006 3:18 AM CDT Manolo Parisi MD POINT OF CARE TESTING Edited Performing Organization Address [facility] de Phone Number INTERFACE SYSTEM Refer to clinic/hospital department * (ABNORMAL) POC GLUCOSE (12/24/2006 1:13 AM CDT) GLUCOSE POC 177(H) 65 - 99 mg/dL INTERFACE SYSTEM 12/24/2006 1:13 AM CDT Manolo Parisi MD POINT OF CARE TESTING Edited Performing Organization Address [facility] de Phone Number INTERFACE SYSTEM Refer to clinic/hospital department * (ABNORMAL) POC GLUCOSE (12/24/2006 12:02 AM CDT) GLUCOSE POC 181(H) 65 - 99 mg/dL INTERFACE SYSTEM 12/24/2006 12:0 2 AM CDT Result [facility] Manolo Parisi MD POINT OF CARE TESTING Edited Performing Organization Address [facility] de Phone Number INTERFACE SYSTEM Refer to clinic/hospital department * (ABNORMAL) POC GLUCOSE (12/23/2006 10:58 PM CDT) GLUCOSE POC 189(H) 65 - 99 mg/dL INTERFACE SYSTEM 12/23/2006 10:5 8 PM CDT Manolo Parisi MD POINT OF CARE TESTING Edited Performing Organization Address City/[facility] Co de Phone Number INTERFACE [...] POC GLUCOSE (12/23/2006 9:12 PM CDT) Pathologist [facility] GLUCOSE POC 196(H) 65 - 99 mg/dL INTERFACE SYSTEM 12/23/2006 9:12 PM CDT Manolo Parisi MD POINT OF CARE TESTING Edited Performing Organization Address [facility]/ZIP Co de Phone Number INTERFACE SYSTEM [...] MD CHEMISTRY ORDERABLES Edited Performing Organization Address [facility] Phone Number INTERFACE SYSTEM Refer to clinic/hospital department * (ABNORMAL) POC GLUCOSE (12/23/2006 8:05 PM CDT) GLUCOSE POC 200(H) 65 - 99 mg/dL INTERFACE SYSTEM 12/23/2006 8:05 PM CDT Manolo Parisi MD POINT OF CARE TESTING Edited Performing Organization Address [facility] Phone Number INTERFACE SYSTEM Refer to clinic/hospital department * (ABNORMAL) POC GLUCOSE (12/23/2006 6:53 PM CDT) GLUCOSE POC 243(H) 65 - 99 mg/dL INTERFACE SYSTEM 12/23/2006 6:53 PM CDT Manolo Parisi MD POINT OF CARE TESTING Edited Performing Organization Address [facility] Phone Number INTERFACE SYSTEM Refer to clinic/hospital department * (ABNORMAL) POC GLUCOSE (12/23/2006 5:17 PM CDT) COMMENT, GLU POC TX Given INTERFACE SYSTEM GLUCOSE POC 218(H) 65 - 99 mg/dL INTERFACE SYSTEM 12/23/2006 5:17 PM CDT Manolo Parisi MD POINT OF CARE TESTING Edited Performing Organization Address [facility] de Phone Number INTERFACE SYSTEM Refer to clinic/hospital department * (ABNORMAL) POC GLUCOSE (12/23/2006 3:42 PM CDT) COMMENT, GLU POC Repeated Test INTERFACE SYSTEM COMMENT 3, GLU POC TX Given INTERFACE SYSTEM GLUCOSE POC 213(H) 65 - 99 mg/dL INTERFACE SYSTEM 12/23/2006 3:42 PM CDT Result [facility] Manolo Parisi MD POINT OF CARE TESTING Edited Performing Organization Address [facility] Phone Number INTERFACE SYSTEM Refer to clinic/hospital department * (ABNORMAL) CK TOTAL, RELATIVE INDEX (12/23/2006 12:50 PM CDT) CK 517(H) 10 - 170 U/L INTERFACE SYSTEM CARDIAC RELATIVE INDEX 4.4(H) <=4.0 INTERFACE SYSTEM 12/23/2006 12:5 0 PM CDT Result [facility] Manolo Parisi MD CHEMISTRY ORDERABLES Edited Performing Organization Address [facility] Phone Number INTERFACE SYSTEM Refer to clinic/hospital department * (ABNORMAL) CKMB W/REFLEX CK (12/23/2006 12:50 PM CDT) CKMB 22.8(AA) <=6.7 ng/mL INTERFACE SYSTEM Comment:Results called to Ady shoemakere_ at 12/23/2006 1:51 PM and read back verified. CKMB INTERP See Below INTERFAC E SYSTEM Comment:Elevated CKMB,Consis tent with Myocardial Injury. 12/23/2006 12:5 0 PM CDT Result [facility] Manolo Parisi MD CHEMISTRY ORDERABLES Edited Performing Organization Address [facility] Phone Number INTERFACE SYSTEM Refer to clinic/hospital department * (ABNORMAL) TROPONIN (W/REFLEX CKMB/CK) (12/23/2006 12:50 PM CDT) TROPONIN T 0.38(AA) <=0.03 ng/mL INTERFACE SYSTEM Comment:Results called to Ady inee_ at 12/23/2006 1:19 PM and read back verified. TROPONIN T INTERP See Below INTERFACE SYSTEM Comment:Elevated Troponin-T, Consistent with Myocardial Injury 12/23/2006 12:5 0 PM CDT Result [facility] Manolo Parisi MD CHEMISTRY ORDERABLES Edited Performing Organization Address [facility] Phone Number INTERFACE SYSTEM Refer to clinic/hospital department * (ABNORMAL) MAGNESIUM LEVEL (12/23/2006 12:50 PM CDT) MAGNESIUM 2.7(H) 1.5 - 2.5 mg/dL INTERFACE SYSTEM 12/23/2006 12:5 0 PM CDT Manolo Parisi MD CHEMISTRY ORDERABLES Edited Performing Organization Address [facility] Phone Number [...] and non- Americans is available on the [facility] Intranet at: [email or web address] Select: Lab Policies and Procedures Select: Reference Ranges - GFR 12/23/2006 12:5 0 PM CDT Manolo Parisi MD CHEMISTRY ORDERABLES Edited Performing Organization Address [facility] Phone Number INTERFACE SYSTEM Refer to clinic/hospital [...] MD HEMATOLOGY ORDERABLES Edited Performing Organization Address [facility] Phone Number INTERFACE SYSTEM Refer to clinic/hospital [...] patients with mechanical heart valves or post CO. Pediatric (12 years and under): 1.5 - [...] MD HEMATOLOGY ORDERABLES Edited Performing Organization Address [facility] Phone Number INTERFACE SYSTEM Refer to clinic/hospital [...] MD HEMATOLOGY ORDERABLES Edited Performing Organization Address City/[facility] Phone Number INTERFACE SYSTEM Refer to clinic/hospital [...] MD HEMATOLOGY ORDERABLES Edited Performing Organization Address [facility] Phone Number INTERFACE SYSTEM Refer to clinic/hospital [...] MD CHEMISTRY ORDERABLES Edited Performing Organization Address City/[facility] Co de Phone Number INTERFACE SYSTEM Refer to clinic/hospital department * (ABNORMAL) POC GLUCOSE (12/23/2006 11:23 AM CDT) GLUCOSE POC 133(H) 65 - 99 mg/dL INTERFACE SYSTEM 12/23/2006 11:2 3 AM CDT Manolo Parisi MD POINT OF CARE TESTING Edited Performing Organization Address [facility] Co de Phone Number INTERFACE [...] MD CHEMISTRY ORDERABLES Edited Performing Organization Address [facility]/ZIP Co de Phone Number INTERFACE SYSTEM [...] MD CHEMISTRY ORDERABLES Edited Performing Organization Address [facility] Phone Number INTERFACE SYSTEM Refer to clinic/hospital [...] MD CHEMISTRY ORDERABLES Edited Performing Organization Address [facility] de Phone Number INTERFACE SYSTEM [...] MD CHEMISTRY ORDERABLES Edited Performing Organization Address [facility] Phone Number INTERFACE SYSTEM Refer to clinic/hospital [...] MD URINE ORDERABLES Edited Performing Organization Address [facility] Phone Number INTERFACE SYSTEM Refer to clinic/hospital [...] MD URINE ORDERABLES Edited Performing Organization Address [facility] de Phone Number INTERFACE SYSTEM [...] MD HEMATOLOGY ORDERABLES Edited Performing Organization Address [facility] de Phone Number INTERFACE SYSTEM [...] MD HEMATOLOGY ORDERABLES Edited Performing Organization Address City/[facility]/ZIP Co de Phone Number INTERFACE SYSTEM [...] and non- Americans is available on the [facility] Intranet at: [email or web address] Select: Lab Policies and Procedures Select: Reference Ranges - GFR 2006 1:49 PM CDT Manolo Parisi MD CHEMISTRY ORDERABLES Edited Performing Organization Address City/[facility]/ZIP Co de Phone Number INTERFACE SYSTEM [...] patients with mechanical heart valves or post CO. Pediatric (12 years and under): 1.5 - [...]
--- OUTSIDE RECORDS SUMMARY | 2025-03-04 10:29 | XMS_ITS | Encounter Summary ---
Author Organization [employer] Address [address] [place] [address] Care Team Providers Care Physiology Teacher Name Role Phone Unavailable Primary Care Provider Unavailabl e Encounter Details Date Type Department Care Team (Late st Contact Info) Description 01/26/2007 Outpatient Historical [facility] Cardiovas and Thor Surg at [facility] Heart [address] [address] Manolo Parisi MD [address] [place] [phone] Social History Tobacco Use Types Packs/Day Years Used Date Smoking Tobacco: Never Assessed Sex and Gender Information Value Date Recorded Sex Assigned at Not on file 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
--- OUTSIDE RECORDS SUMMARY | 2025-03-04 10:29 | XMS_ITS | Encounter Summary ---
Author Organization [employer] Address [address] [place] [address] Care Team Providers Care Ice Cream Freezer Name Role Phone Unavailable Primary Care Provider Unavailabl e Encounter Details Date Type Department Care Team (Late st Contact Info) Description 12/27/2006 Outpatient Historical [facility] Support Serv. 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
--- OUTSIDE RECORDS SUMMARY | 2025-03-04 10:29 | XMS_ITS | Encounter Summary ---
Author Organization [facility] Address [address] [place] [address] Care Team Providers Care Manager Winter Name Role Phone Unavailable Primary Care Provider Unavailabl e Encounter Details Date Type Department Care Team (Late st Contact Info) Description 12/01/2006 Outpatient Historical [facility] Cardiovas and Thor Surg at [facility] Heart [address] [address] Manolo Parisi MD [address] [place] [phone] Social History Tobacco Use Types Packs/Day Years Used Date Smoking Tobacco: Never Assessed Sex and Gender Information Value Date Recorded Sex Assigned at Not on file 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
--- OUTSIDE RECORDS SUMMARY | 2025-03-04 10:29 | XMS_ITS | Encounter Summary ---
Author Organization [facility] Healthcare Address [address] [place] [address] Care Team Providers Care Licensed Architect Name Role Phone Lee Branch MD Primary Care Provide r Encounter Details Date Type Department Care Team (Late st Contact Info) Description 07/04/2024 Orders Only [facility] Health Information Management [address] [place] [phone] Scanning, Provider Social History Tobacco Use Types Packs/Day Years Used Date Smoking Tobacco: Some Days Pipe Smokeless Tobacco: Never Alcohol Use Standard Drinks/Week Comments Yes 0 (1 standard drink = 0.6 oz pur e alcohol) Sex and Gender Information Value Date Recorded Sex Assigned at Not on file 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 Gender Identity Not on file Sexual Orientation Not on file documented as of this encounter Plan of Treatment Upcoming Encounters Date Type Department Care Team (Late st Contact Info) Description 03/04/2025 10:30 AM CDT Office Visit [facility] Cardiology [address] [facility] [address] [place] [phone] Lee Rodrigues MD [address] [place], [place] [id number] Arrived documented as of this encounter Procedures Procedure Name Priority Date/Time Associated Diagnosis Comments SCAN - LABS 07/04/2024 documented in this encounter Results * SCAN - LABS (07/04/2024) us Provider Scanning Final Result documented in this encounter Visit Diagnoses Not on filedocumented in this encounter Care Teams Licensed Architect Relationship Specialty Start Date End Date Lee Branch MD [address] [place] [address] PCP - General 11/12/16 documented as of this encounter
--- OUTSIDE RECORDS SUMMARY | 2025-03-04 10:29 | XMS_ITS | Encounter Summary ---
Author Organization [facility] Address [address] [place] [address] Care Team Providers Care Adjuster Piano Action Name Role Phone Unavailable Primary Care Provider Unavailabl e Encounter Details Date Type Department Care Team (Late st Contact Info) Description 01/06/2007 Outpatient Historical [facility] Cardiovas and Thor Surg at [facility] Heart [address] [address] Manolo Parisi MD [address] [place] [phone] Social History Tobacco Use Types Packs/Day Years Used Date Smoking Tobacco: Never Assessed Sex and Gender Information Value Date Recorded Sex Assigned at Not on file 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
--- OUTSIDE RECORDS SUMMARY | 2025-03-04 10:29 | XMS_ITS | Clinical Summary ---
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
[2025-03-04 11:30] LABS: INR 3.8; Prothrombin Time 35.4 Seconds (11.1-14.7)
== END 2025-03-04 10:17 | disposition home or self-care (01) ==
PROVIDERS: PCP Emergency Medicine; Visit Provider Physician Assistant
DX: R79.1 Abnormal coagulation profile (principal)
CPT/HCPCS: 36415; 85610